=== PATIENT | male | born 1975 | race Caucasian/White ===

== ENCOUNTER 2016-02-23 12:57 | Outpatient (RCR) | payer OTHER ==
[~2016-02-23 12:57] MED LIST: ALPR0.25 PO; AMIT25TA9 PO; AMT10T PO; ATEN25TA PO; BUTA-234 PO; BUTT75CA PO; CPR500T PO; CYCL10TA9 PO; IBP800T PO; KETO-22 PO; KETO10TA77 PO; LEVSIN PO; LISI10TA PO; MAGN100T3 PO; OMEG-85 PO; OMEP-10 GT; OMEP-10 PO; OMEP20CA6 PO; ONDA-42 PO; ONDAN4ODT PO; TPR100T PO; TRAM50TA2 PO; VITAMINE; ZOLP10TA5 PO
--- OUTSIDE RECORDS SUMMARY | 2016-02-23 13:02 | XMS REPORT | Continuity of Care Document ---
Author Author [facility] Organization [facility] Address Unknown Phone Unavailable Care Team Providers Care Installations Inspector Name Role Phone MANASA FUNG DO PCP Insurance Providers Payer Name Policy Number Subscriber Name Relationship Self Pay Pending Patricia Apprv [id number] Rose Grayson 19 Self / Same As Patient Advance Directives Directive Response Recorded Date/Time Advance Directives No 09/04/15 9:25am Health Care Power of Teletype Mechanic No 09/04/15 9:25am Organ Donor No 09/04/15 9:25am Resuscitation Status Full Code 09/04/15 9:25am Problems Active Problems Medical Problem Onset Date Status Headache Unknown Acute Medications Current Home Medications Medication Dose Units Route Directions Days/Qty Instructions Start Date Omeprazole 20 Mg 20 Mg Oral Daily 10/08/14 Past Home Medications Medication Directions Ordered Status Ciprofloxacin 500 Mg Tablet, 1 Tab Oral Twice A Day 02/28/11 Discontinued Ondansetron Hcl 4 Mg Tab, 4 Mg Oral Every 4HRS 02/28/11 Discontinued Ketorolac Tromethamine 10 Mg Tablet, 10 Mg Oral Q6-8 Hours as needed Discontinued Omeprazole 20 Mg Capsule.dr, 20 Mg Oral As Needed 10/28/11 Discontinued Topiramate 100 Mg Tablet, 150 Mg Oral Twice A Day 01/17/13 Discontinued Cyclobenzaprine Hcl (Flexeril) 10 Mg Tablet, 10 Mg Oral Q8hr Prn 01/17/13 Discontinued Tramadol Hcl 50 Mg Tablet, 50 Mg Oral As Needed 01/17/13 Discontinued Lisinopril 10 Mg Tablet, 10 Mg Oral Daily 01/17/13 Discontinued Amitriptyline Hcl 25 Mg Tab, 25 Mg Oral Bedtime 01/17/13 Discontinued Zolpidem Tartrate 10 Mg Tablet, 10 Mg Oral Bedtime as needed 01/17/13 Discontinued Ibuprofen 800 Mg Tab, 800 Mg Oral Give Every 8 Hrs On Schedule as needed 05/31 Discontinued Butalb/Acetaminophen/Caffeine (Fioricet) 1 Each Tablet, 1 Each Oral Q6hr Prn as needed for Headache 02/20/13 Discontinued Atenolol 25 Mg Tablet, 1 Each Oral Daily 05/13/14 Discontinued [place]-3S/Dha/Epa/Fish Oil/D3 1 Each Capsule, 1 Each Oral 05/31/14 Discontinued Cyclobenzaprine Hcl (Flexeril) 10 Mg Tablet, 1 Each Oral Bedtime 05/31/14 Discontinued Omeprazole 20 Mg Capsule.dr, 20 Mg G Tube Daily 05/31/14 Discontinued Ketorolac Tromethamine 10 Mg Tablet, 10 Mg Oral Every 6 Hours as needed for Pain 05/31/14 Discontinued Ondansetron Hcl 4 Mg Tab, 4 Mg Oral As Needed as needed for 05/31/14 Discontinued Amitriptyline Hcl 10 Mg Tab, 10 Mg Oral Bedtime 05/31/14 Discontinued Magnesium Amino Acid Chelate 100 Mg Tablet, 135 Mg Oral Daily 05/31/14 Discontinued [Vitamine B2] , 05/31/14 Discontinued Butterbur Root Extract 75 Mg Capsule, 75 Mg Oral Daily 05/31/14 Discontinued Alprazolam 0.25 Mg Tablet, 0.25 Mg Oral Twice A Day as needed for Anxiety Discontinued [Levsin Er] , 0.375 Mg Oral Twice A Day as needed for Abdominal Pain Discontinued Social History Social History Problem Response Recorded Date/Time Alcohol Use Occasionally Uses 09/04/2015 9:25am Recreational Drug Use No 09/04/2015 9:25am Recent Foreign Travel No 09/04/2015 9:25am Sexually Transmitted Disease No 09/04/2015 9:25am Smoking Status Never a Smoker 09/04/2015 9:24am Do you dip or chew tobacco? No 10/08/2014 12:38pm Query Response Start Date Stop Date Smoking Status Never a Smoker Hospital Discharge Instructions Patient Instructions Physician Instructions Plan of Care/Instructions/FU: 1 week vasquez Activity as Tolerated: No Discharge Diet: Regular Diet Other Inst to Patient Follow up Appt: Make appointment for 1 week. Instructions: No lifting greater than 10 pounds. No strenuous activity. May shower in 24 hours, no tub bath or soaking. Use incentive spirometer at home as directed. No Smoking Skin/Wound Care: May remove bandages in 24 hours. You need to leave the white strips over incision on they will fall off on their own. Symptoms to Report: Appetite Changes, Extremity Discoloration, Numbness/Tingling, Swelling Increased, Bleeding Excessive, Eyesight Changes, Pain Increased, Urine Color Change, Constipation(Persistent), Fever over 101 degree F, Pain/Pressure in chest, Urinating Difficulty, Cough Up/Vomit Blood, Heart Beat Irreg/Pounding, Pain/Pressure in jaw, Vaginal Bleeding Increase, Cramps in feet or legs, Lightheadedness, Pain/Pressure in shoulder, Diarrhea(Persistent), Memory Changes Suddenly, Questions/Concerns, Weight gain consecutive days, Dizziness/Fainting, Nausea/Vomiting, Shortness of Breath, Weight gain over 2 pounds If questions or concerns contact your physician Or seek help at emergency department. Care Plan Patient Instructions:: 1 week lapoint Plan of Care Discharge Date 09/04/15 12:00pm Instructions/Education Provided ANESTHESIA INSTRUCTIONS POSTOP Prescriptions See Medication Section Functional Status No functional status results. Allergies, Adverse Reactions, Alerts No known allergies. Immunizations Name Given Type Date of Pneumonia Vaccine 05/31/11 Historical Date of Influenza Vaccine 01/28/14 Historical Tetanus Booster (TDap) Less than 5yrs Historical Vital Signs Acute Vital Signs Vital Response Date/Time Temperature (Fahrenheit) 98.0 degrees F (97.6 - 99.5) 09/04/2015 12:00pm Temperature (Calculated Celsius) 36.65722 degrees C (36.4 - 37.5) 09/04/2015 11:40am Temperature Source Temporal 09/04/2015 12:00pm Pulse Rate (adult) 79 bpm (60 - 90) 09/04/2015 12:00pm Respiratory Rate 16 bpm (12 - 24) 09/04/2015 12:00pm O2 Sat by Pulse Oximetry 95 % (88 - 100) 09/04/2015 12:00pm Blood Pressure 112/78 mm Hg 09/04/2015 12:00pm Blood Pressure Mean 111 mm Hg 08/29/2015 1:35pm Pain Pain Intensity 0 09/04/2015 11:40am Height (Feet) 5 feet 09/04/2015 9:25am Height (Inches) 5.00 inches 09/04/2015 9:25am Height (Calculated Centimeters) 165.547357 cm 09/04/2015 9:25am Weight (Pounds) 290 pounds 09/04/2015 9:25am Weight (Ounces) 0.0 oz 09/04/2015 9:25am Weight (Calculated Grams) 208987.789 gm 09/04/2015 9:25am Weight (Calculated Kilograms) 131.128020 kilograms 09/04/2015 9:25am Calculated BMI 48.25 09/04/2015 9:25am Results Laboratory Results Test Name Result Units Flags Reference Collection Date/Time Result Date/ Time Comments White Blood Count 6.3 10^3/uL 4.3-11.0 05/26/2015 1:43pm 05/26/2015 1: 59pm Red Blood Count 5.03 10^6/uL 4.35-5.85 05/26/2015 1:43pm 05/26/2015 1: 59pm Hemoglobin 15.1 G/DL 13.3-17.7 05/26/2015 1:43pm 05/26/2015 1:59pm Hematocrit 45 % 40-54 05/26/2015 1:43pm 05/26/2015 1:59pm Mean Corpuscular Volume 89 FL 80-99 05/26/2015 1:43pm 05/26/2015 1: 59pm Mean Corpuscular Hemoglobin 30 PG 25-34 05/26/2015 1:43pm 05/26/2015 1: 59pm Mean Corpuscular Hemoglobin Concent 34 G/DL 32-36 05/26/2015 1:43pm 11/2015 1:59pm Red Cell Distribution Width 13.4 % 10.0-14.5 05/26/2015 1:43pm 2015 1:59pm Platelet Count 219 10^3/uL 130-400 05/26/2015 1:43pm 05/26/2015 1:59pm Mean Platelet Volume 10.1 FL 7.4-10.4 05/26/2015 1:43pm 05/26/2015 1: 59pm Neutrophils (%) (Auto) 70 % 42-75 05/26/2015 1:43pm 05/26/2015 1:59pm Lymphocytes (%) (Auto) 19 % 12-44 05/26/2015 1:43pm 05/26/2015 1:59pm Monocytes (%) (Auto) 9 % 0-12 05/26/2015 1:43pm 05/26/2015 1:59pm Eosinophils (%) (Auto) 2 % 0-10 05/26/2015 1:43pm 05/26/2015 1:59pm Basophils (%) (Auto) 0 % 0-10 05/26/2015 1:43pm 05/26/2015 1:59pm Neutrophils # (Auto) 4.4 X 10^3 1.8-7.8 05/26/2015 1:43pm 05/26/2015 1: 59pm Lymphocytes # (Auto) 1.2 X 10^3 1.0-4.0 05/26/2015 1:43pm 05/26/2015 1: 59pm Monocytes # (Auto) 0.6 X 10^3 0.0-1.0 05/26/2015 1:43pm 05/26/2015 1: 59pm Eosinophils # (Auto) 0.1 10^3/uL 0.0-0.3 05/26/2015 1:43pm 05/26/2015 1 :59pm Basophils # (Auto) 0.0 10^3/uL 0.0-0.1 05/26/2015 1:43pm 05/26/2015 1: 59pm Sodium Level 141 MMOL/L 135-145 05/26/2015 1:43pm 05/26/2015 2:25pm Potassium Level 4.2 MMOL/L 3.6-5.0 05/26/2015 1:43pm 05/26/2015 2:25pm Chloride Level 108 MMOL/L H 98-107 05/26/2015 1:43pm 05/26/2015 2:25pm Carbon Dioxide Level 24 MMOL/L 21-32 05/26/2015 1:43pm 05/26/2015 2: 25pm Anion Gap 9 MMOL/L 5-14 05/26/2015 1:43pm 05/26/2015 2:25pm Blood Urea Nitrogen 8 MG/DL 7-18 05/26/2015 1:43pm 05/26/2015 2:25pm Creatinine 0.74 MG/DL 0.60-1.30 05/26/2015 1:43pm 05/26/2015 2:25pm BUN/Creatinine Ratio 11 05/26/2015 1:43pm 05/26/2015 2:25pm Estimat Glomerular Filtration Rate > 60 05/26/2015 1:43pm 2015 2:25pm GFR INTERPRETIVE DATA UNITS FOR ESTIMATED GFR (eGFR): mL/min/1.73 M2 REFERENCE RANGE FOR ESTIMATED GFR (eGFR) eGFR NORMAL eGFR >60 MODERATELY DECREASED eGFR 30-59 SEVERLY DECREASED eGFR 15-29 KIDNEY FAILURE <15 (OR DIALYSIS) Glucose Level 109 MG/DL H 70-105 05/26/2015 1:43pm 05/26/2015 2:25pm Calcium Level 9.3 MG/DL 8.5-10.1 05/26/2015 1:43pm 05/26/2015 2:25pm Total Bilirubin 0.3 MG/DL 0.1-1.0 05/26/2015 1:43pm 05/26/2015 2:25pm Alkaline Phosphatase 53 U/L 40-136 05/26/2015 1:43pm 05/26/2015 2:25pm Aspartate Amino Transf (AST/SGOT) 26 U/L 5-34 05/26/2015 1:43pm 2015 2:25pm Alanine Aminotransferase (ALT/SGPT) 51 U/L 0-55 05/26/2015 1:43pm 05/26 2:25pm Lactate Dehydrogenase 190 U/L 125-220 05/26/2015 1:43pm 05/26/2015 2: 25pm Total Protein 7.0 G/DL 6.4-8.2 05/26/2015 1:43pm 05/26/2015 2:25pm Albumin 4.2 G/DL 3.2-4.5 05/26/2015 1:43pm 05/26/2015 2:25pm Pending Laboratory Results Test Name Collection Date/Time Procedures Procedure Status Date Provider(s) DIAGNOSTIC SIGMOIDOSCOPY Completed 08/29/15 VASQUEZ,YOLANDA D DO Removal of right central venous catheter Completed 09/04/15 YOLANDA VASQUEZ DO Encounters Encounter Location Arrival/Admit Date Discharge/Depart Date Attending Provider Departed [facility] 09/04/15 8:52am 12:00pm YOLANDA VASQUEZ DO Departed Clinic [facility] 09/03/15 5:38am 09/03/15 1: 17pm YLOANDA VASQUEZ DO Departed [facility] 08/29/15 1:24pm 4:15pm YOLANDA VASQUEZ DO Registered Clinic [facility] 08/20/15 12:19pm LAINE DIAZ Registered Clinic [facility] 08/18/15 1:44pm LAINE DIAZ Discharged Recurring [facility] 05/26/15 2:11pm 11:59pm VAUGHN FRANKEL
[2016-02-23 13:05] LABS: BASOPHILS % (AUTO) 0 % (0-10); EOSINOPHILS # (AUTO) 0.1 10^3/uL (0.0-0.3); EOSINOPHILS % (AUTO) 2 % (0-10); LYMPHOCYTES # (AUTO) 1.4 X 10^3 (1.0-4.0); LYMPHOCYTES % (AUTO) 20 % (12-44); MEAN CORPUSCULAR HEMOGLOBIN 29 PG (25-34); MEAN CORPUSCULAR HGB CONC 34 G/DL (32-36); MEAN CORPUSCULAR VOLUME 87 FL (80-99); MONOCYTES # (AUTO) 0.6 X 10^3 (0.0-1.0); MONOCYTES % (AUTO) 9 % (0-12); NEUTROPHILS # (AUTO) 4.6 X 10^3 (1.8-7.8); NEUTROPHILS % (AUTO) 69 % (42-75); PLATELET COUNT 241 10^3/uL (130-400); RED BLOOD COUNT 5.23 10^6/uL (4.35-5.85); RED CELL DISTRIBUTION WIDTH 14.3 % (10.0-14.5); WHITE BLOOD COUNT 6.7 10^3/uL (4.3-11.0)
[2016-02-23 13:36] LABS: ALANINE AMINOTRANSFERASE 55 U/L (0-55); ALBUMIN 4.2 G/DL (3.2-4.5); ASPARTATE AMINO TRANSFERASE 37 U/L (5-34); BILIRUBIN,TOTAL 0.5 MG/DL (0.1-1.0); BLOOD UREA NITROGEN 11 MG/DL (7-18); BUN/CREATININE RATIO 15; CALCIUM 9.4 MG/DL (8.5-10.1); CARBON DIOXIDE 24 MMOL/L (21-32); CREATININE SERUM 0.75 MG/DL (0.60-1.30); GFR ESTIMATED > 60; GLUCOSE 103 MG/DL (70-105); TOTAL PROTEIN 6.9 G/DL (6.4-8.2)
[2016-02-23 14:41] LABS: ANION GAP 9 MMOL/L (5-14); CHLORIDE 108 MMOL/L (98-107); POTASSIUM 4.2 MMOL/L (3.6-5.0); SODIUM 141 MMOL/L (135-145)
== END 2016-05-23 | disposition home or self-care (01) ==
LOC: ONC 12:57
PROVIDERS: ATTEND Internal Medicine Hematology & Oncology
DX: C21.0 Malignant neoplasm of anus, unspecified (principal); R74.0 Nonspecific elevation of levels of transaminase and lactic acid dehydrogenase [LDH]; Z92.21 Personal history of antineoplastic chemotherapy; Z92.3 Personal history of irradiation
CPT/HCPCS: 36415; 80053; 85025; 99213

== ENCOUNTER → 2016-08-17 | Outpatient (CLI) | payer OTHER ==
[~2016-08-17] MED LIST changes: +CATHETER FLUSH 10 ML SYR IV PRN; +IOHEXOL 350 MG/ML 100 ML (OMNIPAQUE 350) VIAL IV ONE
--- NOTE | 2016-08-17 14:36 | Diagnostic Imaging Report ---
PROCEDURE: CT chest, abdomen, and pelvis with contrast. TECHNIQUE: Multiple contiguous axial images were obtained through the chest, abdomen, and pelvis after the administration of intravenous contrast. INDICATION: Followup of anal cancer. Comparison with CT of the chest from 08/20/[address] scan of the abdomen and pelvis from 07/25/2015. CT chest with contrast: FINDINGS: The lungs are well aerated. There are no parenchymal masses present. No infiltrates. No pleural effusions or pericardial effusions. There is opacification of the aorta and pulmonary arteries which appear normal. Bone windows show no blastic or lytic lesions. IMPRESSION: Stable CT scan of the chest with no findings to indicate metastatic disease. CT abdomen and pelvis: FINDINGS: Hepatic steatosis is again noted. No liver lesions have developed. Gallbladder and bile duct appear normal. The pancreas and spleen remain normal. The adrenal glands are not enlarged. The kidneys show normal enhancement following IV contrast. There are no renal calculi or masses. No retroperitoneal adenopathy of pathologic size. The stomach and small bowel are not distended. The colon shows normal stool and gas pattern. The appendix is visualized and normal. There is diverticulosis of the sigmoid colon without evidence of diverticulitis. The mesorectal fascial planes and perirectal fat appear normal with no adenopathy. There is no free air or free fluid. Bone windows show no blastic or lytic lesions. IMPRESSION: 1. Stable CT scan of the abdomen and pelvis. Hepatic steatosis again noted. 2. No changes have occurred to indicate metastatic disease or recurrent neoplasm. Dictated by: Dictated on workstation # [id number]
== END ==
LOC: RAD 13:04
PROVIDERS: ATTEND Nurse Practitioner Adult Health
DX: C21.1 Malignant neoplasm of anal canal (principal); K76.0 Fatty (change of) liver, not elsewhere classified
CPT/HCPCS: 71260; 74177

== ENCOUNTER → 2016-08-23 | Outpatient (CLI) | payer OTHER ==
[~2016-08-23] MED LIST changes: -CATHETER FLUSH 10 ML SYR IV PRN; -IOHEXOL 350 MG/ML 100 ML (OMNIPAQUE 350) VIAL IV ONE
[2016-08-24 15:52] LABS: PROLACTIN 8.5 ng/mL (2.1-17.7)
== END ==
LOC: LAB 13:51
PROVIDERS: ATTEND Family Medicine
DX: E29.1 Testicular hypofunction (principal)
CPT/HCPCS: 84146; 84153; 84403

== ENCOUNTER → 2016-08-23 | Outpatient (RCR) | payer OTHER ==
--- OUTSIDE RECORDS SUMMARY | 2016-05-25 13:01 | XMS REPORT | Continuity of Care Document ---
Author Author [facility] Organization [facility] Address Unknown Phone Unavailable Care Team Providers Care Media Operator Name Role Phone MANASA FUNG DO PCP Insurance Providers Payer Name Policy Number Subscriber Name Relationship UMR [id number] Rose Grayson 19 Self / Same As Patient Self Pay Pending Patricia Apprv Advance Directives Directive Response Recorded Date/Time Advance Directives No 09/04/15 9:25am Health Care Power of Metalworking Instructor No 09/04/15 9:25am Organ Donor No 09/04/15 9:25am Problems Active Problems Medical Problem [...] Tablet, 1 Each Oral Daily 05/13/14 Discontinued [place]-3S/Dha/Epa/Fish Oil/D3 1 Each Capsule, 1 Each Oral [...] No 09/04/2015 9:25am Recent Foreign Travel No 02/23/2016 12:57pm Sexually Transmitted Disease No 09/04/2015 9:25am Do you dip or chew tobacco? No 10/08/2014 12:38pm Sexually Transmitted Disease No 09/04/2015 9:25am Hx Sexually Transmitted Disorders No 06/13/2014 12:15pm Hospital Discharge Instructions No hospital discharge instructions. Plan of Care Prescriptions See Medication Section Functional Status No functional status results. Allergies, Adverse Reactions, Alerts No known allergies. Immunizations No immunization records. Vital Signs No known vital signs results. Results Laboratory Results Test Name Result Units Flags Reference Collection Date/Time Result Date/ Time Comments White Blood Count 6.7 10^3/uL 4.3-11.0 02/23/2016 1:01pm 02/23/2016 1: 07pm Red Blood Count 5.23 10^6/uL 4.35-5.85 02/23/2016 1:01pm 02/23/2016 1: 07pm Hemoglobin 15.3 G/DL 13.3-17.7 02/23/2016 1:01pm 02/23/2016 1:07pm Hematocrit 46 % 40-54 02/23/2016 1:01pm 02/23/2016 1:07pm Mean Corpuscular Volume 87 FL 80-99 02/23/2016 1:01pm 02/23/2016 1: 07pm Mean Corpuscular Hemoglobin 29 PG 25-34 02/23/2016 1:01pm 02/23/2016 1: 07pm Mean Corpuscular Hemoglobin Concent 34 G/DL 32-36 02/23/2016 1:01pm 10/2015 1:07pm Red Cell Distribution Width 14.3 % 10.0-14.5 02/23/2016 1:01pm 2015 1:07pm Platelet Count 241 10^3/uL 130-400 02/23/2016 1:01pm 02/23/2016 1:07pm Mean Platelet Volume 10.0 FL 7.4-10.4 02/23/2016 1:01pm 02/23/2016 1: 07pm Neutrophils (%) (Auto) 69 % 42-75 02/23/2016 1:01pm 02/23/2016 1:07pm Lymphocytes (%) (Auto) 20 % 12-44 02/23/2016 1:01pm 02/23/2016 1:07pm Monocytes (%) (Auto) 9 % 0-12 02/23/2016 1:01pm 02/23/2016 1:07pm Eosinophils (%) (Auto) 2 % 0-10 02/23/2016 1:01pm 02/23/2016 1:07pm Basophils (%) (Auto) 0 % 0-10 02/23/2016 1:01pm 02/23/2016 1:07pm Neutrophils # (Auto) 4.6 X 10^3 1.8-7.8 02/23/2016 1:01pm 02/23/2016 1: 07pm Lymphocytes # (Auto) 1.4 X 10^3 1.0-4.0 02/23/2016 1:01pm 02/23/2016 1: 07pm Monocytes # (Auto) 0.6 X 10^3 0.0-1.0 02/23/2016 1:01pm 02/23/2016 1: 07pm Eosinophils # (Auto) 0.1 10^3/uL 0.0-0.3 02/23/2016 1:01pm 02/23/2016 1 :07pm Basophils # (Auto) 0.0 10^3/uL 0.0-0.1 02/23/2016 1:01pm 02/23/2016 1: 07pm Sodium Level 141 MMOL/L 135-145 02/23/2016 1:01pm 02/23/2016 2:42pm Potassium Level 4.2 MMOL/L 3.6-5.0 02/23/2016 1:01pm 02/23/2016 2:42pm Chloride Level 108 MMOL/L H 98-107 02/23/2016 1:01pm 02/23/2016 2:42pm Carbon Dioxide Level 24 MMOL/L 21-32 02/23/2016 1:01pm 02/23/2016 1: 43pm Anion Gap 9 MMOL/L 5-14 02/23/2016 1:01pm 02/23/2016 2:42pm Blood Urea Nitrogen 11 MG/DL 7-18 02/23/2016 1:01pm 02/23/2016 1:43pm Creatinine 0.75 MG/DL 0.60-1.30 02/23/2016 1:01pm 02/23/2016 1:43pm BUN/Creatinine Ratio 15 02/23/2016 1:01pm 02/23/2016 1:43pm Estimat Glomerular Filtration Rate > 60 02/23/2016 1:01pm 2015 1:43pm GFR INTERPRETIVE DATA UNITS FOR ESTIMATED GFR (eGFR): mL/min/1.73 M2 REFERENCE RANGE FOR ESTIMATED GFR (eGFR) eGFR NORMAL eGFR >60 MODERATELY DECREASED eGFR 30-59 SEVERLY DECREASED eGFR 15-29 KIDNEY FAILURE <15 (OR DIALYSIS) Glucose Level 103 MG/DL 70-105 02/23/2016 1:01pm 02/23/2016 1:43pm Calcium Level 9.4 MG/DL 8.5-10.1 02/23/2016 1:01pm 02/23/2016 1:43pm Total Bilirubin 0.5 MG/DL 0.1-1.0 02/23/2016 1:01pm 02/23/2016 1:43pm Alkaline Phosphatase 53 U/L 40-136 02/23/2016 1:01pm 02/23/2016 1:43pm Aspartate Amino Transf (AST/SGOT) 37 U/L H 5-34 02/23/2016 1:01pm 2015 1:43pm Alanine Aminotransferase (ALT/SGPT) 55 U/L 0-55 02/23/2016 1:01pm 02/22 1:43pm Total Protein 6.9 G/DL 6.4-8.2 02/23/2016 1:01pm 02/23/2016 1:43pm Albumin 4.2 G/DL 3.2-4.5 02/23/2016 1:01pm 02/23/2016 1:43pm Procedures No known history of procedures. Encounters Encounter Location Arrival/Admit Date Discharge/Depart Date Attending Provider Discharged Recurring [facility] 02/23/16 12:57pm 11:59pm VAUGHN FRANKEL
[2016-05-25 13:21] LABS: BASOPHILS % (AUTO) 1 % (0-10); EOSINOPHILS # (AUTO) 0.1 10^3/uL (0.0-0.3); EOSINOPHILS % (AUTO) 2 % (0-10); LYMPHOCYTES # (AUTO) 1.3 X 10^3 (1.0-4.0); LYMPHOCYTES % (AUTO) 20 % (12-44); MEAN CORPUSCULAR HEMOGLOBIN 29 PG (25-34); MEAN CORPUSCULAR HGB CONC 34 G/DL (32-36); MEAN CORPUSCULAR VOLUME 87 FL (80-99); MEAN PLATELET VOLUME 10.1 FL (7.4-10.4); MONOCYTES # (AUTO) 0.5 X 10^3 (0.0-1.0); MONOCYTES % (AUTO) 8 % (0-12); NEUTROPHILS # (AUTO) 4.5 X 10^3 (1.8-7.8); NEUTROPHILS % (AUTO) 70 % (42-75); PLATELET COUNT 216 10^3/uL (130-400); RED BLOOD COUNT 5.17 10^6/uL (4.35-5.85); RED CELL DISTRIBUTION WIDTH 14.4 % (10.0-14.5); WHITE BLOOD COUNT 6.4 10^3/uL (4.3-11.0)
[2016-05-25 13:49] LABS: ALANINE AMINOTRANSFERASE 37 U/L (0-55); ANION GAP 7 MMOL/L (5-14); ASPARTATE AMINO TRANSFERASE 20 U/L (5-34); BILIRUBIN,TOTAL 0.5 MG/DL (0.1-1.0); BLOOD UREA NITROGEN 11 MG/DL (7-18); BUN/CREATININE RATIO 14; CALCIUM 8.9 MG/DL (8.5-10.1); CARBON DIOXIDE 25 MMOL/L (21-32); CHLORIDE 108 MMOL/L (98-107); CREATININE SERUM 0.78 MG/DL (0.60-1.30); GFR ESTIMATED > 60; GLUCOSE 101 MG/DL (70-105); POTASSIUM 3.8 MMOL/L (3.6-5.0); SODIUM 140 MMOL/L (135-145); TOTAL PROTEIN 6.5 G/DL (6.4-8.2)
[2016-08-23 14:04] LABS: BASOPHILS % (AUTO) 0 % (0-10); EOSINOPHILS # (AUTO) 0.2 10^3/uL (0.0-0.3); EOSINOPHILS % (AUTO) 2 % (0-10); LYMPHOCYTES # (AUTO) 1.3 X 10^3 (1.0-4.0); LYMPHOCYTES % (AUTO) 12 % (12-44); MEAN CORPUSCULAR HEMOGLOBIN 28 PG (25-34); MEAN CORPUSCULAR HGB CONC 33 G/DL (32-36); MEAN CORPUSCULAR VOLUME 86 FL (80-99); MEAN PLATELET VOLUME 10.6 FL (7.4-10.4); MONOCYTES # (AUTO) 0.7 X 10^3 (0.0-1.0); MONOCYTES % (AUTO) 6 % (0-12); NEUTROPHILS # (AUTO) 8.5 X 10^3 (1.8-7.8); NEUTROPHILS % (AUTO) 80 % (42-75); PLATELET COUNT 222 10^3/uL (130-400); RED BLOOD COUNT 6.17 10^6/uL (4.35-5.85); RED CELL DISTRIBUTION WIDTH 14.5 % (10.0-14.5); WHITE BLOOD COUNT 10.6 10^3/uL (4.3-11.0)
[2016-08-23 14:32] LABS: ALANINE AMINOTRANSFERASE 34 U/L (0-55); ALBUMIN 4.3 G/DL (3.2-4.5); ANION GAP 9 MMOL/L (5-14); ASPARTATE AMINO TRANSFERASE 21 U/L (5-34); BILIRUBIN,TOTAL 0.5 MG/DL (0.1-1.0); BLOOD UREA NITROGEN 8 MG/DL (7-18); BUN/CREATININE RATIO 10; CALCIUM 9.3 MG/DL (8.5-10.1); CARBON DIOXIDE 25 MMOL/L (21-32); CHLORIDE 107 MMOL/L (98-107); CREATININE SERUM 0.84 MG/DL (0.60-1.30); GFR ESTIMATED > 60; GLUCOSE 100 MG/DL (70-105); SODIUM 141 MMOL/L (135-145); TOTAL PROTEIN 7.1 G/DL (6.4-8.2)
== END | disposition home or self-care (01) ==
LOC: ONC 05-25 12:58
PROVIDERS: ATTEND Internal Medicine Hematology & Oncology
DX: C21.0 Malignant neoplasm of anus, unspecified (principal); R74.0 Nonspecific elevation of levels of transaminase and lactic acid dehydrogenase [LDH]; Z92.21 Personal history of antineoplastic chemotherapy; Z92.3 Personal history of irradiation
CPT/HCPCS: 36415; 80053; 84146; 84153; 84403; 85025; 99213

== ENCOUNTER 2016-11-25 12:54 | Outpatient (RCR) | payer OTHER ==
[2016-11-25 13:07] LABS: BASOPHILS % (AUTO) 0 % (0-10); EOSINOPHILS # (AUTO) 0.1 10^3/uL (0.0-0.3); EOSINOPHILS % (AUTO) 2 % (0-10); LYMPHOCYTES # (AUTO) 1.4 X 10^3 (1.0-4.0); LYMPHOCYTES % (AUTO) 17 % (12-44); MEAN CORPUSCULAR HEMOGLOBIN 27 PG (25-34); MEAN CORPUSCULAR HGB CONC 33 G/DL (32-36); MEAN CORPUSCULAR VOLUME 83 FL (80-99); MEAN PLATELET VOLUME 10.4 FL (7.4-10.4); MONOCYTES # (AUTO) 0.6 X 10^3 (0.0-1.0); MONOCYTES % (AUTO) 7 % (0-12); NEUTROPHILS # (AUTO) 6.2 X 10^3 (1.8-7.8); NEUTROPHILS % (AUTO) 74 % (42-75); PLATELET COUNT 226 10^3/uL (130-400); RED BLOOD COUNT 6.13 10^6/uL (4.35-5.85); RED CELL DISTRIBUTION WIDTH 16.3 % (10.0-14.5); WHITE BLOOD COUNT 8.4 10^3/uL (4.3-11.0)
[2016-11-25 13:36] LABS: ALANINE AMINOTRANSFERASE 37 U/L (0-55); ALBUMIN 4.2 GM/DL (3.2-4.5); ANION GAP 11 MMOL/L (5-14); ASPARTATE AMINO TRANSFERASE 22 U/L (5-34); BILIRUBIN,TOTAL 0.6 MG/DL (0.1-1.0); BLOOD UREA NITROGEN 9 MG/DL (7-18); BUN/CREATININE RATIO 11; CALCIUM 9.7 MG/DL (8.5-10.1); CARBON DIOXIDE 24 MMOL/L (21-32); CHLORIDE 106 MMOL/L (98-107); CREATININE SERUM 0.79 MG/DL (0.60-1.30); GFR ESTIMATED > 60; GLUCOSE 114 MG/DL (70-105); POTASSIUM 4.2 MMOL/L (3.6-5.0); SODIUM 141 MMOL/L (135-145); TOTAL PROTEIN 7.1 GM/DL (6.4-8.2)
== END 2017-01-15 | disposition home or self-care (01) ==
LOC: ONC 12:54
PROVIDERS: ATTEND Internal Medicine Hematology & Oncology
DX: C21.0 Malignant neoplasm of anus, unspecified (principal); R74.0 Nonspecific elevation of levels of transaminase and lactic acid dehydrogenase [LDH]; Z92.21 Personal history of antineoplastic chemotherapy; Z92.3 Personal history of irradiation
CPT/HCPCS: 36415; 80053; 85025; 99213

== ENCOUNTER 2017-02-08 05:36 | Outpatient (CLI) | payer SELFPAY ==
[~2017-02-08] VITALS: Ht 165.1 cm; Wt 127.9 kg
== END 2017-02-08 11:40 ==
LOC: PREOP 05:36
PROVIDERS: ATTEND Surgery
DX: Z01.818 Encounter for other preprocedural examination (principal); K62.5 Hemorrhage of anus and rectum; Z85.048 Personal history of other malignant neoplasm of rectum, rectosigmoid junction, and anus

== ENCOUNTER 2017-02-15 06:50 | Day surgery (SDC) | payer OTHER ==
[~2017-02-15] VITALS: Ht 165.1 cm; Wt 127.9 kg
[2017-02-15] MEDS ORDERED: LACTATED RINGERS 1,000 ML IV STA (07:02)
--- OUTSIDE RECORDS SUMMARY | 2017-02-15 07:02 | XMS REPORT ---
Author Author LALO GOSS [facility] e[employer] Address Unknown Phone Unavailable Care Team Providers Care Band And Cuff Cutter Name Role Phone LALO GOSS CP Unavailable Allergies, Adverse Reactions, Alerts Substance Reaction Event Type N.K.D.A. Info Not Available Non Drug Allergy Problems Problem Type Condition Code Onset Dates Condition Status Assessment Physical exam Z00.00 Active Assessment Screening for tuberculosis Z11.1 Active Medications Medication Code System Code Instructions Start Date End Date Status Dosage Prilosec OTC [facility] [address] 20 MG Orally Once a day 2 tablets Procedures Procedure Coding System Code Date Office Visit, Est Pt., Level 4 CPT-4 24610 Dec 15, 2015 TB INTRADERMAL TEST CPT-4 49972 Dec 15, 2015 Vital Signs Date/Time: Dec 15, 2015 Cardiac Monitoring Heart Rate 90 bpm Weight 287 lbs Height 65 in BMI 47.75 Index Blood Pressure Diastolic 80 mmHg Blood Pressure Systolic 128 mmHg Results No Known Results Summary Purpose eClinicalWorks Submission
[2017-02-15] MEDS ORDERED: MIDAZOLAM 2 MG/2 ML (VERSED) VIAL ONE (07:03)
[2017-02-15] MEDS ORDERED: PROPOFOL INJECTION 50 ML IV ONE (07:03)
--- OUTSIDE RECORDS SUMMARY | 2017-02-15 07:04 | XMS REPORT | Continuity of Care Document ---
Author Author [facility] Organization [facility] Address Unknown Phone Unavailable Allergies Active Description Code Type Severity Reaction Onset Reported/Identified Relationship to Patient Clinical Status Yes No Known Drug Allergies [id number] Drug Allergy Unknown N/ A 10/11/2008 Medications Problems Date Dx Coded Attending Type Code Diagnosis Diagnosed By 02/28/2011 Ot 575.9 DIS OF GALLBLADDER NOS 02/28/2011 Ot 593.9 RENAL URETERAL DIS NOS 02/28/2011 Ot 789.09 ABDOMINAL PAIN, OTHER SPECIFIED SITE 11/02/2011 Ot 553.1 UMBILICAL HERNIA 08/05/2012 SEMAJ SHEPHERD, GISEL Gomez Ot 784.0 HEADACHE 09/15/2012 LAYLA SHEPHERD, LI Gomez Ot 327.23 OBSTRUCTIVE SLEEP APNEA (ADULT) (PEDIATR 09/15/2012 LAYLA SHEPHERD, LI Gomez Ot 780.79 OTH MALAISE FATIGUE 09/15/2012 LI RICH MD Ot 784.0 HEADACHE 10/04/2012 LASHELL SHEPHERD, CURRY Sánchez Ot 327.23 OBSTRUCTIVE SLEEP APNEA (ADULT) (PEDIATR 01/17/2013 VERONICA SHEPHERD, DAVID Medrano Ot 346.90 MIGRAINE UNSPECIFIED W/O INTRACT MGRN W/ 01/17/2013 VERONICA SHEPHERD, DAVID Medrano Ot 784.0 HEADACHE 02/20/2013 KAYDEN NUNES APRN Ot 784.0 HEADACHE 05/13/2014 Ot 722.93 05/13/2014 Ot 722.52 05/13/2014 Ot 553.1 05/13/2014 Ot V72.63 05/13/2014 Ot V74.8 05/13/2014 KAYDEN NUNES APRN Ot 785.6 ENLARGEMENT LYMPH NODES 05/13/2014 KAYDEN NUNES APRN Ot 789.09 ABDOMINAL PAIN, OTHER SPECIFIED SITE 05/17/2014 Ot 722.93 05/17/2014 Ot 722.52 05/17/2014 Ot 553.1 05/17/2014 Ot V72.63 05/17/2014 Ot V74.8 05/31/2014 YOLANDA VASQUEZ DO Ot 154.8 MAL RAGHAVENDRA RECTUM/ANUS NEC 05/31/2014 YOLANDA VASQUEZ DO Ot 211.3 BENIGN NEOPLASM LG BOWEL 05/31/2014 YOLANDA VASQUEZ DO Ot 558.9 NONINF GASTROENTERIT NEC 05/31/2014 YOLANDA VASQUEZ DO Ot 787.99 06/11/2014 Ot 722.93 06/11/2014 Ot 722.52 06/11/2014 Ot 553.1 06/11/2014 Ot V72.63 06/11/2014 Ot V74.8 06/11/2014 MANASA FUNG DO Ot 240.9 06/11/2014 YOLANDA VASQUEZ DO Ot V72.84 06/12/2014 Ot 154.8 06/13/2014 Ot 154.3 MALIGNANT RAGHAVENDRA ANUS NOS 06/14/2014 Ot 154.8 06/14/2014 Ot 722.93 06/14/2014 Ot 722.52 06/14/2014 Ot 553.1 06/14/2014 Ot V72.63 06/14/2014 Ot V74.8 06/14/2014 MANASA FUNG DO Ot 240.9 06/14/2014 YOLANDA VASQUEZ DO Ot V72.84 06/14/2014 Ot V72.84 07/12/2014 MARLYS, BOBAN N Ot 154.3 07/12/2014 MARLYS, BOBAN N Ot 346.90 07/12/2014 MARLYS, BOBAN N Ot 401.9 07/12/2014 MARLYS, BOBAN N Ot V58.69 07/15/2014 MARLYS, BOBAN N Ot 154.3 07/15/2014 MARLYS, BOBAN N Ot 346.90 07/15/2014 MARLYS, BOBAN N Ot 401.9 07/15/2014 MARLYS, BOBAN N Ot V58.69 07/15/2014 MARLYS, BOBAN N Ot 154.3 07/15/2014 MARLYS, BOBAN N Ot 346.90 07/15/2014 MARLYS, BOBAN N Ot 401.9 07/15/2014 MARLYS, BOBAN N Ot V58.69 07/15/2014 MARLYS, BOBAN N Ot 154.3 07/15/2014 MARLYS, BOBAN N Ot 346.90 07/15/2014 MARLYS, BOBAN N Ot 401.9 07/15/2014 MARLYS, BOBAN N Ot V58.69 07/16/2014 MARLYS, BOBAN N Ot 154.3 07/16/2014 MARLYS, BOBAN N Ot 346.90 07/16/2014 MARLYS, BOBAN N Ot 401.9 07/16/2014 MARLYS, BOBAN N Ot V58.69 07/16/2014 MARLYS, BOBAN N Ot 154.3 07/16/2014 MARLYS, BOBAN N Ot 346.90 07/16/2014 MARLYS, BOBAN N Ot 401.9 07/16/2014 MARLYS, BOBAN N Ot V58.69 07/17/2014 MARLYS, BOBAN N Ot 154.3 07/17/2014 MARLYS, BOBAN N Ot 346.90 07/17/2014 MARLYS, BOBAN N Ot 401.9 07/17/2014 MARLYS, BOBAN N Ot V58.69 07/17/2014 MARLYS, BOBAN N Ot 154.3 07/17/2014 MARLYS, BOBAN N Ot 346.90 07/17/2014 MARLYS, BOBAN N Ot 401.9 07/17/2014 MARLYS, BOBAN N Ot V58.69 07/25/2014 MARLYS, BOBAN N Ot 154.3 07/25/2014 MARLYS, BOBAN N Ot 346.90 07/25/2014 MARLYS, BOBAN N Ot 401.9 07/25/2014 MARLYS, BOBAN N Ot V58.69 07/25/2014 Ot 722.93 07/25/2014 Ot 722.52 07/25/2014 Ot 553.1 07/25/2014 Ot V72.63 07/25/2014 Ot V74.8 07/25/2014 MANASA FUNG DO Ot 240.9 07/25/2014 YOLANDA VASQUEZ DO Ot V72.84 07/25/2014 MARLYS, BOBAN N Ot 154.3 07/25/2014 MARLYS, BOBAN N Ot 346.90 07/25/2014 MARLYS, BOBAN N Ot 401.9 07/25/2014 MARLYS, BOBAN N Ot V58.69 07/25/2014 Ot V72.84 07/25/2014 Ot 154.3 07/25/2014 Ot 401.9 07/25/2014 Ot V58.69 07/26/2014 Ot 154.8 09/12/2014 VAUGHN FRANKEL Yousif Ot 154.3 MALIGNANT RAGHAVENDRA ANUS NOS 09/12/2014 VAUGHN FRANKEL Yousif Ot 346.90 MIGRAINE UNSPECIFIED W/O INTRACT MGRN W/ 09/12/2014 VAUGHN FRANKEL Yousif Ot 401.9 HYPERTENSION NOS 09/12/2014 VAUGHN FRANKEL Yousif Ot V58.0 ENCOUNTER FOR RADIOTHERAPY 09/12/2014 VAUGHN FRANKEL Yousif Ot V58.69 OTH MED,LT,CURRENT USE 09/12/2014 LAINE DIAZ NETWORK STRATEGIST Ot 154.3 09/12/2014 LAINE DIAZ NETWORK STRATEGIST Ot 571.8 09/30/2014 LAINE DIAZ NETWORK STRATEGIST Ot 154.3 09/30/2014 LAINE DIAZ NETWORK STRATEGIST Ot 401.9 09/30/2014 LAINE DIAZ NETWORK STRATEGIST Ot V58.69 10/08/2014 YOLANDA VASQUEZ DO Ot 154.2 MALIG NEOPL ANAL CANAL 10/08/2014 YOLANDA VASQUEZ DO Ot V15.3 HX OF IRRADIATION 10/08/2014 YOLANDA VASQUEZ DO Ot V87.41 PERSONAL HISTORY OF ANTINEOPLASTIC CHEMO 10/17/2014 LAINE DIAZ NETWORK STRATEGIST Ot 154.3 10/17/2014 LAINE DIAZ NETWORK STRATEGIST Ot 571.8 10/17/2014 LAINE DIAZ NETWORK STRATEGIST Ot 154.3 10/17/2014 LAINE DIAZ NETWORK STRATEGIST Ot 401.9 10/17/2014 LAINE DIAZ NETWORK STRATEGIST Ot V58.69 10/22/2014 LAINE DIAZ NETWORK STRATEGIST Ot 154.3 10/22/2014 LAINE DIAZ NETWORK STRATEGIST Ot 401.9 10/22/2014 DIAZLAINE Millan NETWORK STRATEGIST Ot V58.69 10/22/2014 LAINE DIAZ NETWORK STRATEGIST Ot 154.3 10/22/2014 LAINE DIAZ NETWORK STRATEGIST Ot 571.8 10/23/2014 VAUGHN FRANKEL Ot 154.3 10/23/2014 MARLYS, BOBAN N Ot 346.90 10/23/2014 MARLYS, BOBAN N Ot 401.9 10/23/2014 MARLYSCOLE DRAPERAN N Ot V58.69 11/20/2014 MARLYS, BOBAN N Ot 154.3 11/20/2014 MARLYS, BOBAN N Ot 346.90 11/20/2014 MARLYS, BOBAN N Ot 401.9 11/20/2014 MARLYSVAUGHN DRAPER N Ot V58.69 11/21/2014 MARLYSVAUGHN DRAPER N Ot 154.3 11/21/2014 MARLYS, BOBAN N Ot 346.90 11/21/2014 MARLYS, BOBAN N Ot 401.9 11/21/2014 MARLYS, BOBAN N Ot V58.69 11/21/2014 LAIEN DIAZ NETWORK STRATEGIST Ot 154.3 11/21/2014 LAINE DIAZ NETWORK STRATEGIST Ot 401.9 11/21/2014 LAINE DIAZ NETWORK STRATEGIST Ot V58.69 12/13/2014 MARLYS, BOBKODAK N Ot 154.3 12/13/2014 MARLYS, BOBKODAK N Ot 346.90 12/13/2014 MARLYSVAUGHN DRAPER N Ot 401.9 12/13/2014 MARLYSVAUGHN DRAPER N Ot V58.69 12/13/2014 MARLYS BOBKODAK N Ot V58.81 01/07/2015 LAINE DIAZ NETWORK STRATEGIST Ot 790.4 01/07/2015 LAINE DIAZ NETWORK STRATEGIST Ot V10.06 01/07/2015 LAINE DIAZ NETWORK STRATEGIST Ot V67.1 01/07/2015 LAINE DIAZ NETWORK STRATEGIST Ot V67.2 01/15/2015 VAUGHN FRANKEL N Ot 154.3 MALIGNANT RAGHAVENDRA ANUS NOS 01/15/2015 COLE FRANKELAN N Ot 346.90 MIGRAINE UNSPECIFIED W/O INTRACT MGRN W/ 01/15/2015 MARLYS BOBKODAK N Ot 401.9 HYPERTENSION NOS 01/15/2015 VAUGHN FRANKEL N Ot V58.69 OTH MED,LT,CURRENT USE 01/15/2015 COLE FRANKELAN N Ot V58.81 FIT/ADJ VASCULAR CATHETER 02/04/2015 Ot 722.52 02/04/2015 Ot 553.1 02/04/2015 Ot V72.63 02/04/2015 Ot V74.8 02/04/2015 MANASA FUNG DO Ot 240.9 02/04/[facility] 02/04[facility]2015 Ot V72.84 02/04/2015 Ot 154.3 02/04/2015 Ot 401.9 02/04/2015 Ot V58.69 02/04/2015 DIAZLAINE Millan S NETWORK STRATEGIST Ot 154.3 02/04/2015 DIAZLAINE Millan S NETWORK STRATEGIST Ot 401.9 02/04/2015 DIAZLAINE Millan S NETWORK STRATEGIST Ot V58.69 02/04/2015 DIAZLAINE S NETWORK STRATEGIST Ot 154.3 02/04/2015 DIAZLAINE Millan S NETWORK STRATEGIST Ot 571.8 02/04/2015 DIAZLAINE S NETWORK STRATEGIST Ot 154.3 02/04/2015 DIAZLAINE Millan S NETWORK STRATEGIST Ot 401.9 02/04/2015 DIAZLAINE Millan S NETWORK STRATEGIST Ot V58.69 02/04/2015 [facility] V72.84 02/04/2015 DIAZLAINE Millan S NETWORK STRATEGIST Ot 154.3 02/04/2015 DIAZLAINE Millan S NETWORK STRATEGIST Ot 401.9 02/04/2015 LAINE DIAZ S NETWORK STRATEGIST Ot V58.69 02/04/2015 DIAZLAINE Millan S NETWORK STRATEGIST Ot 790.4 02/04/2015 DIAZLAINE Millan S NETWORK STRATEGIST Ot R74.0 02/04/2015 DIAZLAINE Millan S NETWORK STRATEGIST Ot V10.06 02/04/2015 DIAZLAINE Millan S NETWORK STRATEGIST Ot V67.1 02/04/2015 DIAZLAINE S NETWORK STRATEGIST Ot V67.2 02/04/2015 DIAZLAINE S NETWORK STRATEGIST Ot Z85.048 02/04/2015 MARLYSVAUGHN N Ot 154.3 02/04/2015 MARLYSVAUGHN DRAPER N Ot 346.90 02/04/2015 MARLYS BOBAN N Ot 401.9 02/04/2015 MARLYSCOLEAN N Ot V58.69 02/04/2015 MARLYSVAUGHN DRAPER N Ot V58.81 02/04/2015 Ot 722.52 02/04/2015 Ot 553.1 02/04/2015 Ot V72.63 02/04/2015 Ot V74.8 02/04/2015 MANASA FUNG DO Ot 240.9 02/04/2015 [facility] V72.84 02/04/2015 Ot V72.84 02/04/2015 Ot 154.3 02/04/2015 Ot 401.9 02/04/2015 Ot V58.69 02/04/2015 LAINE DIAZ S NETWORK STRATEGIST Ot 154.3 02/04/2015 DIAZLAINE Millan S NETWORK STRATEGIST Ot 401.9 02/04/2015 DIAZLAINE Millan S NETWORK STRATEGIST Ot V58.69 02/04/2015 DIAZLAINE Millan S NETWORK STRATEGIST Ot 154.3 02/04/2015 LAINE DIAZ S NETWORK STRATEGIST Ot 571.8 02/04/2015 DIAZLAINE Millan S NETWORK STRATEGIST Ot 154.3 02/04/2015 DIAZLAINE Millan S NETWORK STRATEGIST Ot 401.9 02/04/2015 LAINE DIAZ S NETWORK STRATEGIST Ot V58.69 02/04/2015 [facility] V72.84 02/04/2015 LAINE DIAZ S NETWORK STRATEGIST Ot 154.3 02/04/2015 LAINE DIAZ S NETWORK STRATEGIST Ot 401.9 02/04/2015 LAINE DIAZ S NETWORK STRATEGIST Ot V58.69 02/04/2015 LAINE DIAZ S NETWORK STRATEGIST Ot 790.4 02/04/2015 LAINE DIAZ S NETWORK STRATEGIST Ot R74.0 02/04/2015 DIAZLAINE Millan S NETWORK STRATEGIST Ot V10.06 02/04/2015 DIAZLAINE Millan S NETWORK STRATEGIST Ot V67.1 02/04/2015 DIAZLAINE Millan S NETWORK STRATEGIST Ot V67.2 02/04/2015 DIAZLAINE Millan S NETWORK STRATEGIST Ot Z85.048 02/04/2015 VAUGHN FRANKEL N Ot 154.3 02/04/2015 MARLYSVAUGHN DRAPER N Ot 346.90 02/04/2015 MARLYSVAUGHN N Ot 401.9 02/04/2015 MARLYSCOLE DRAPERAN N Ot V58.69 02/04/2015 MARLYSVAUGHN DRAPER N Ot V58.81 02/04/2015 MANASA FUNG DO Ot 240.9 02/11/2015 LAINE DIAZ NETWORK STRATEGIST Ot C21.0 02/14/2015 MANASA FUNG DO S Ot 240.9 02/27/2015 LAINE DIAZ S NETWORK STRATEGIST Ot C21.0 03/17/2015 VAUGHN FRANKEL N Ot 154.3 03/17/2015 VAUGHN FRANKEL N Ot 346.90 03/17/2015 VAUGHN FRANKEL N Ot 401.9 03/17/2015 VAUGHN FRANKEL N Ot V58.69 03/17/2015 VAUGHN FRANKEL N Ot V58.81 03/18/2015 DIAZLAINE Millan S NETWORK STRATEGIST Ot N50.3 03/31/2015 DIAZLAINE Millan S NETWORK STRATEGIST Ot Z08 03/31/2015 DIAZLAINE S NETWORK STRATEGIST Ot Z85.048 03/31/2015 DIAZLAINE S NETWORK STRATEGIST Ot Z92.21 03/31/2015 DIAZLAINE S NETWORK STRATEGIST Ot Z92.3 04/07/2015 DIAZLAINE Millan S NETWORK STRATEGIST Ot 790.4 04/07/2015 DIAZLAINE Millan S NETWORK STRATEGIST Ot R74.0 04/07/2015 DIAZLAINE Millan S NETWORK STRATEGIST Ot V10.06 04/07/2015 DIAZLAINE Millan S NETWORK STRATEGIST Ot V67.1 04/07/2015 DIAZLAINE S NETWORK STRATEGIST Ot V67.2 04/07/2015 DIAZLAINE S NETWORK STRATEGIST Ot Z85.048 04/07/2015 DIAZLAINE Millan S NETWORK STRATEGIST Ot N50.3 04/15/2015 VAUGHN FRANKEL N Ot C21.0 04/15/2015 VAUGHN FRANKEL N Ot Z45.2 04/28/2015 VAUGHN FRANKEL N Ot C21.0 MALIGNANT NEOPLASM OF ANUS, UNSPECIFIED 04/28/2015 VAUGHN FRANKEL N Ot Z45.2 ENCOUNTER FOR ADJUSTMENT AND MANAGEMENT 05/19/2015 VAUGHN FRANKEL N Ot C21.0 05/19/2015 VAUGHN FRANKEL N Ot Z45.2 05/26/2015 Ot 722.52 05/26/2015 Ot 553.1 05/26/2015 Ot V72.63 05/26/2015 Ot V74.8 05/26/2015 MANASA FUNG DO Ot 240.9 05/26/2015 MONHEGAN YOLANDA KHAN Ot V72.84 05/26/2015 Ot V72.84 05/26/2015 Ot 154.3 05/26/2015 Ot 401.9 05/26/2015 Ot V58.69 05/26/2015 DIAZLAINE Millan S NETWORK STRATEGIST Ot 154.3 05/26/2015 DIAZLAINE Millan S NETWORK STRATEGIST Ot 401.9 05/26/2015 DIAZLAINE Millan S NETWORK STRATEGIST Ot V58.69 05/26/2015 DIAZLAINE Millan S NETWORK STRATEGIST Ot 154.3 05/26/2015 DIAZLAINE Millan S NETWORK STRATEGIST Ot 571.8 05/26/2015 DIAZLAINE Millan S NETWORK STRATEGIST Ot 154.3 05/26/2015 DIAZLAINE Millan S NETWORK STRATEGIST Ot 401.9 05/26/2015 DIAZLAINE Millan S NETWORK STRATEGIST Ot V58.69 05/26/2015 MONHEGAN YOLANDA KHAN Ot V72.84 05/26/2015 DIAZLAINE Millan S NETWORK STRATEGIST Ot 154.3 05/26/2015 DIAZLAINE Millan S NETWORK STRATEGIST Ot 401.9 05/26/2015 LAINE DIAZ S NETWORK STRATEGIST Ot V58.69 05/26/2015 LAINE DIAZ S NETWORK STRATEGIST Ot 790.4 05/26/2015 DIAZLAINE Millan S NETWORK STRATEGIST Ot R74.0 05/26/2015 DIAZLAINE Millan S NETWORK STRATEGIST Ot V10.06 05/26/2015 LAINE DIAZ S NETWORK STRATEGIST Ot V67.1 05/26/2015 DIAZLAINE Millan S NETWORK STRATEGIST Ot V67.2 05/26/2015 DIAZLAINE Millan S NETWORK STRATEGIST Ot Z85.048 05/26/2015 DIAZLAINE S NETWORK STRATEGIST Ot C21.0 05/26/2015 DIAZLAINE S NETWORK STRATEGIST Ot Z08 05/26/2015 DIAZLAINE S NETWORK STRATEGIST Ot Z85.048 05/26/2015 DIAZLAINE S NETWORK STRATEGIST Ot Z92.21 05/26/2015 DIAZLAINE S NETWORK STRATEGIST Ot Z92.3 05/26/2015 DIAZLAINE S NETWORK STRATEGIST Ot N50.3 05/26/2015 VAUGHN FRANKEL Ot C21.0 05/26/2015 VAUGHN FRANKEL Ot Z45.2 05/27/2015 VAUGHN FRANKEL Ot C21.0 05/27/2015 VAUGHN FRANKEL Ot Z45.2 07/24/2015 Ot 722.52 07/24/2015 Ot 553.1 07/24/2015 Ot V72.63 07/24/2015 Ot V74.8 07/24/2015 [facility] Ot 240.9 07/24/2015 [facility] YOLANDA Sylvester Ot V72.84 07/24/2015 Ot V72.84 07/24/2015 Ot 154.3 07/24/2015 Ot 401.9 07/24/2015 Ot V58.69 07/24/2015 JOE LAINE S NETWORK STRATEGIST Ot 154.3 07/24/2015 JOE LAINE S NETWORK STRATEGIST Ot 401.9 07/24/2015 JOE LAINE S NETWORK STRATEGIST Ot V58.69 07/24/2015 JOE LAINE S NETWORK STRATEGIST Ot 154.3 07/24/2015 JOE LAINE S NETWORK STRATEGIST Ot 571.8 07/24/2015 JOE LAINE S NETWORK STRATEGIST Ot 154.3 07/24/2015 JOE LAINE S NETWORK STRATEGIST Ot 401.9 07/24/2015 JOE LAINE S NETWORK STRATEGIST Ot V58.69 07/24/2015 [facility] V[facility].84 07/24/2015 JOE LAINE S NETWORK STRATEGIST Ot 154.3 07/24/2015 JOE LAINE S NETWORK STRATEGIST Ot 401.9 07/24/2015 DIAZ, LAINE S NETWORK STRATEGIST Ot V58.69 07/24/2015 JOE LAINE S NETWORK STRATEGIST Ot 790.4 07/24/2015 JOE LAINE S NETWORK STRATEGIST Ot R74.0 07/24/2015 JOE LAINE S NETWORK STRATEGIST Ot V10.06 07/24/2015 JOE LAINE S NETWORK STRATEGIST Ot V67.1 07/24/2015 JOE LAINE S NETWORK STRATEGIST Ot V67.2 07/24/2015 JOE LAINE S NETWORK STRATEGIST Ot Z85.048 07/24/2015 DIAZ, HILAH S NETWORK STRATEGIST Ot C21.0 07/24/2015 LAINE DIAZ S NETWORK STRATEGIST Ot Z08 07/24/2015 DIAZLAINE Millan S NETWORK STRATEGIST Ot Z85.048 07/24/2015 DIAZLAINE Millan S NETWORK STRATEGIST Ot Z92.21 07/24/2015 DIAZLAINE Millan S NETWORK STRATEGIST Ot Z92.3 07/24/2015 DIAZLAINE Millan S NETWORK STRATEGIST Ot N50.3 07/24/2015 MARLYS, COLEAN N Ot C21.0 07/24/2015 MARLYS, BOBAN N Ot R74.0 07/24/2015 MARLYS, BOBAN N Ot Z92.21 07/24/2015 MARLYS, BOBAN N Ot Z92.3 07/24/2015 DIAZLAINE Millan S NETWORK STRATEGIST Ot C21.0 07/24/2015 DIAZLAINE S NETWORK STRATEGIST Ot Z92.21 07/24/2015 DIAZLAINE Millan S NETWORK STRATEGIST Ot Z92.3 07/25/2015 MARLYS, BOBAN N Ot C21.0 07/25/2015 MARLYS, BOBAN N Ot R74.0 07/25/2015 MARLYS, BOBAN N Ot Z92.21 07/25/2015 MARLYS, BOBAN N Ot Z92.3 07/25/2015 MARLYS, BOBAN N Ot C21.0 07/25/2015 MARLYS, BOBAN N Ot R74.0 07/25/2015 MARLYS, BOBAN N Ot Z92.21 07/25/2015 MARLYS, BOBAN N Ot Z92.3 07/25/2015 LAINE DIAZ S NETWORK STRATEGIST Ot C21.0 07/25/2015 DIAZLAINE Millan S NETWORK STRATEGIST Ot Z92.21 07/25/2015 DIAZLAINE Millan S NETWORK STRATEGIST Ot Z92.3 07/28/2015 DIAZLAINE Millan S NETWORK STRATEGIST Ot C21.1 07/28/2015 DIAZLAINE Milaln S NETWORK STRATEGIST Ot N50.3 08/20/2015 Ot 722.52 LUMB/LUMBOSAC DISC DEGEN 08/20/2015 Ot 553.1 UMBILICAL HERNIA 08/20/2015 Ot V72.63 PRE-PROCEDURAL LABORATORY EXAMINATION 08/20/2015 Ot V74.8 SCREEN-BACTERIAL DIS NEC 08/20/2015 MANASA FUNG DO Ot 240.9 GOITER NOS 08/20/2015 VASQUEZ DO YOLANDA Sylvester Ot V72.84 EXAM PRE-OPERATIVE NOS 08/20/2015 Ot V72.84 EXAM PRE-OPERATIVE NOS 08/20/2015 Ot 154.3 MALIGNANT RAGHAVENDRA ANUS NOS 08/20/2015 Ot 401.9 HYPERTENSION NOS 08/20/2015 Ot V58.69 OTH MED,LT,CURRENT USE 08/20/2015 JOE LAINE Millan NETWORK STRATEGIST Ot 154.3 MALIGNANT RAGHAVENDRA ANUS NOS 08/20/2015 DIAZLAINE Millan S NETWORK STRATEGIST Ot 401.9 HYPERTENSION NOS 08/20/2015 JOE LAINE Millan NETWORK STRATEGIST Ot V58.69 OTH MED,LT,CURRENT USE 08/20/2015 IVY DIAZREKHA Yana NETWORK STRATEGIST Ot 154.3 MALIGNANT RAGHAVENDRA ANUS NOS 08/20/2015 IVY DIAZREKHA Yana NETWORK STRATEGIST Ot 571.8 CHRONIC LIVER DIS NEC 08/20/2015 LAINE DIAZ S NETWORK STRATEGIST Ot 154.3 MALIGNANT RAGHAVENDRA ANUS NOS 08/20/2015 LAINE DIAZ NETWORK STRATEGIST Ot 401.9 HYPERTENSION NOS 08/20/2015 JOE LAINE Millan NETWORK STRATEGIST Ot V58.69 OTH MED,LT,CURRENT USE 08/20/2015 YOLANDA VASQUEZ DO Ot V72.84 EXAM PRE-OPERATIVE NOS 08/20/2015 LAINE DIAZ NETWORK STRATEGIST Ot 154.3 MALIGNANT RAGHAVENDRA ANUS NOS 08/20/2015 IVY DIAZREKHA S NETWORK STRATEGIST Ot 401.9 HYPERTENSION NOS 08/20/2015 LAINE DIAZ S NETWORK STRATEGIST Ot V58.69 OTH MED,LT,CURRENT USE 08/20/2015 LAINE DIAZ NETWORK STRATEGIST Ot 790.4 ELEV TRANSAMINASE/LDH 08/20/2015 IVY DIAZREKHA S NETWORK STRATEGIST Ot R74.0 NONSPEC ELEV OF LEVELS OF TRANSAMNS LA 08/20/2015 LAINE DIAZ NETWORK STRATEGIST Ot V10.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 08/20/2015 LAINE DIAZ NETWORK STRATEGIST Ot V67.1 RADIOTHERAPY FOLLOW-UP 08/20/2015 LAINE DIAZ NETWORK STRATEGIST Ot V67.2 CHEMOTHERAPY FOLLOW-UP 08/20/2015 LAINE DIAZ NETWORK STRATEGIST Ot 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, RECT 08/20/2015 LAINE DIAZ NETWORK STRATEGIST Ot C21.0 MALIGNANT NEOPLASM OF ANUS, UNSPECIFIED 08/20/2015 LAINE DIAZ NETWORK STRATEGIST Ot Z08 ENCNTR FOR FOLLOW-UP EXAM AFTER TRTMT FO 08/20/2015 LAINE DIAZ NETWORK STRATEGIST Ot 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, RECT 08/20/2015 LAINE DIAZ NETWORK STRATEGIST Ot Z92.21 PERSONAL HISTORY OF ANTINEOPLASTIC CHEMO 08/20/2015 DIAZLAINE Millan S NETWORK STRATEGIST Ot Z92.3 PERSONAL HISTORY OF IRRADIATION 08/20/2015 DIAZLAINE Millan NETWORK STRATEGIST Ot N50.3 CYST OF EPIDIDYMIS 08/20/2015 MARLYSVAUGHN DRAPER N Ot C21.0 MALIGNANT NEOPLASM OF ANUS, UNSPECIFIED 08/20/2015 VAUGHN FRANKEL Ot R74.0 NONSPEC ELEV OF LEVELS OF TRANSAMNS LA 08/20/2015 VAUGHN FRANKEL Ot Z92.21 PERSONAL HISTORY OF ANTINEOPLASTIC CHEMO 08/20/2015 VAUGHN FRANKEL Ot Z92.3 PERSONAL HISTORY OF IRRADIATION 08/20/2015 LAINE DIAZ NETWORK STRATEGIST Ot C21.1 MALIGNANT NEOPLASM OF ANAL CANAL 08/20/2015 DIAZLAINE Millan NETWORK STRATEGIST Ot N50.3 CYST OF EPIDIDYMIS 08/20/2015 LAINE DIAZ S NETWORK STRATEGIST Ot C21.0 MALIGNANT NEOPLASM OF ANUS, UNSPECIFIED 08/20/2015 DIAZLAINE Millan S NETWORK STRATEGIST Ot Z92.21 PERSONAL HISTORY OF ANTINEOPLASTIC CHEMO 08/20/2015 DIAZIVYREKHA S NETWORK STRATEGIST Ot Z92.3 PERSONAL HISTORY OF IRRADIATION 08/21/2015 DIAZLAINE Millan NETWORK STRATEGIST Ot C21.1 MALIGNANT NEOPLASM OF ANAL CANAL 08/24/2015 VAUGHN FRANKEL Ot C21.0 MALIGNANT NEOPLASM OF ANUS, UNSPECIFIED 08/24/2015 VAUGHN FRANKEL Ot R74.0 NONSPEC ELEV OF LEVELS OF TRANSAMNS LA 08/24/2015 VAUGHN FRANKEL Ot Z45.2 ENCOUNTER FOR ADJUSTMENT AND MANAGEMENT 08/24/2015 VAUGHN FRANKEL Ot Z92.21 PERSONAL HISTORY OF ANTINEOPLASTIC CHEMO 08/24/2015 VAUGHN FRANKEL Ot Z92.3 PERSONAL HISTORY OF IRRADIATION 08/26/2015 VAUGHN FRANKEL Ot C21.0 MALIGNANT NEOPLASM OF ANUS, UNSPECIFIED 08/26/2015 VAUGHN FRANKEL Ot R74.0 NONSPEC ELEV OF LEVELS OF TRANSAMNS LA 08/26/2015 VAUGHN FRANKEL Ot Z45.2 ENCOUNTER FOR ADJUSTMENT AND MANAGEMENT 08/26/2015 VAUGHN FRANKEL Ot Z92.21 PERSONAL HISTORY OF ANTINEOPLASTIC CHEMO 08/26/2015 VAUGHN FRANKEL Ot Z92.3 PERSONAL HISTORY OF IRRADIATION 08/28/2015 Ot 722.52 LUMB/LUMBOSAC DISC DEGEN 08/28/2015 Ot 553.1 UMBILICAL HERNIA 08/28/2015 Ot V72.63 PRE-PROCEDURAL LABORATORY EXAMINATION 08/28/2015 Ot V74.8 SCREEN-BACTERIAL DIS NEC 08/28/2015 MANASA FUNG DO Ot 240.9 GOITER NOS 08/28/2015 YOLANDA VASQUEZ DO Ot V72.84 EXAM PRE-OPERATIVE NOS 08/28/2015 Ot V72.84 EXAM PRE-OPERATIVE NOS 08/28/2015 Ot 154.3 MALIGNANT RAGHAVENDRA ANUS NOS 08/28/2015 Ot 401.9 HYPERTENSION NOS 08/28/2015 Ot V58.69 OTH MED,LT,CURRENT USE 08/28/2015 DIAZIVYAH S NETWORK STRATEGIST Ot 154.3 MALIGNANT RAGHAVENDRA ANUS NOS 08/28/2015 DIAZIVYAH S NETWORK STRATEGIST Ot 401.9 HYPERTENSION NOS 08/28/2015 DIAZIVYAH S NETWORK STRATEGIST Ot V58.69 OTH MED,LT,CURRENT USE 08/28/2015 DIAZLAINE S NETWORK STRATEGIST Ot 154.3 MALIGNANT RAGHAVENDRA ANUS NOS 08/28/2015 DIAZIVYAH S NETWORK STRATEGIST Ot 571.8 CHRONIC LIVER DIS NEC 08/28/2015 DIAZIVYAH S NETWORK STRATEGIST Ot 154.3 MALIGNANT RAGHAVENDRA ANUS NOS 08/28/2015 DIAZ HILAH S NETWORK STRATEGIST Ot 401.9 HYPERTENSION NOS 08/28/2015 DIAZIVYAH S NETWORK STRATEGIST Ot V58.69 OTH MED,LT,CURRENT USE 08/28/2015 YOLANDA VASQUEZ DO Ot V72.84 EXAM PRE-OPERATIVE NOS 08/28/2015 DIAZLAINE S NETWORK STRATEGIST Ot 154.3 MALIGNANT RAGHAVENDRA ANUS NOS 08/28/2015 LAINE DIAZ NETWORK STRATEGIST Ot 401.9 HYPERTENSION NOS 08/28/2015 LAINE DIAZ NETWORK STRATEGIST Ot V58.69 OTH MED,LT,CURRENT USE 08/28/2015 LAINE DIAZ NETWORK STRATEGIST Ot 790.4 ELEV TRANSAMINASE/LDH 08/28/2015 LAINE DIAZ NETWORK STRATEGIST Ot R74.0 NONSPEC ELEV OF LEVELS OF TRANSAMNS LA 08/28/2015 LAINE DIAZ NETWORK STRATEGIST Ot V10.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 08/28/2015 LAINE DIAZ NETWORK STRATEGIST Ot V67.1 RADIOTHERAPY FOLLOW-UP 08/28/2015 DIAZLAINE Millan NETWORK STRATEGIST Ot V67.2 CHEMOTHERAPY FOLLOW-UP 08/28/2015 LAINE DIAZ NETWORK STRATEGIST Ot 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, RECT 08/28/2015 LAINE DIAZ NETWORK STRATEGIST Ot C21.0 MALIGNANT NEOPLASM OF ANUS, UNSPECIFIED 08/28/2015 LAINE DIAZ NETWORK STRATEGIST Ot Z08 ENCNTR FOR FOLLOW-UP EXAM AFTER TRTMT FO 08/28/2015 LAINE DIAZ NETWORK STRATEGIST Ot 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, RECT 08/28/2015 LAINE DIAZ NETWORK STRATEGIST Ot Z92.21 PERSONAL HISTORY OF ANTINEOPLASTIC CHEMO 08/28/2015 DIAZLAINE Millan NETWORK STRATEGIST Ot Z92.3 PERSONAL HISTORY OF IRRADIATION 08/28/2015 JOELAINE NETWORK STRATEGIST Ot N50.3 CYST OF EPIDIDYMIS 08/28/2015 JOE LAINE Millan NETWORK STRATEGIST Ot C21.1 MALIGNANT NEOPLASM OF ANAL CANAL 08/28/2015 DIAZLAINE Millan NETWORK STRATEGIST Ot N50.3 CYST OF EPIDIDYMIS 08/28/2015 DIAZLAINE Millan NETWORK STRATEGIST Ot C21.0 MALIGNANT NEOPLASM OF ANUS, UNSPECIFIED 08/28/2015 JOELAINE NETWORK STRATEGIST Ot Z92.21 PERSONAL HISTORY OF ANTINEOPLASTIC CHEMO 08/28/2015 JOELAINE NETWORK STRATEGIST Ot Z92.3 PERSONAL HISTORY OF IRRADIATION 08/28/2015 JOE LAINE Millan NETWORK STRATEGIST Ot C21.1 MALIGNANT NEOPLASM OF ANAL CANAL 08/28/2015 VAUGHN FRANKEL N Ot C21.0 MALIGNANT NEOPLASM OF ANUS, UNSPECIFIED 08/28/2015 VAUGHN FRANKEL Yousif Ot R74.0 NONSPEC ELEV OF LEVELS OF TRANSAMNS LA 08/28/2015 VAUGHN FRANKEL Yousif Ot Z92.21 PERSONAL HISTORY OF ANTINEOPLASTIC CHEMO 08/28/2015 VAUGHN FRANKEL Yousif Ot Z92.3 PERSONAL HISTORY OF IRRADIATION 08/28/2015 DIAZLAINE Millan S NETWORK STRATEGIST Ot C21.1 MALIGNANT NEOPLASM OF ANAL CANAL 08/28/2015 LAINE DIAZ NETWORK STRATEGIST Ot N50.3 CYST OF EPIDIDYMIS 08/28/2015 DIAZLAINE Millan S NETWORK STRATEGIST Ot C21.0 MALIGNANT NEOPLASM OF ANUS, UNSPECIFIED 08/28/2015 DIAZLAINE Millan NETWORK STRATEGIST Ot Z92.21 PERSONAL HISTORY OF ANTINEOPLASTIC CHEMO 08/28/2015 DIAZLAINE Millan S NETWORK STRATEGIST Ot Z92.3 PERSONAL HISTORY OF IRRADIATION 08/28/2015 DIAZLAINE Millan S NETWORK STRATEGIST Ot C21.1 MALIGNANT NEOPLASM OF ANAL CANAL 08/28/2015 LAINE DIAZ NETWORK STRATEGIST Ot N50.3 CYST OF EPIDIDYMIS 08/28/2015 DIAZLAINE Millan S NETWORK STRATEGIST Ot C21.1 MALIGNANT NEOPLASM OF ANAL CANAL 08/29/2015 YOLANDA VASQUEZ DO Ot C21.1 MALIGNANT NEOPLASM OF ANAL CANAL 08/30/2015 VAUGHN FRANKEL Yousif Ot C21.0 MALIGNANT NEOPLASM OF ANUS, UNSPECIFIED 08/30/2015 VAUGHN FRANKEL Ot R74.0 NONSPEC ELEV OF LEVELS OF TRANSAMNS LA 08/30/2015 VAUGHN FRANKEL Yousif Ot Z45.2 ENCOUNTER FOR ADJUSTMENT AND MANAGEMENT 08/30/2015 VAUGHN FRANKEL Yousif Ot Z92.21 PERSONAL HISTORY OF ANTINEOPLASTIC CHEMO 08/30/2015 VAUGHN FRANKEL Yousif Ot Z92.3 PERSONAL HISTORY OF IRRADIATION 09/02/2015 YOLANDA VASQUEZ DO Ot C21.1 MALIGNANT NEOPLASM OF ANAL CANAL 09/04/2015 YOLANDA VASQUEZ DO Ot C21.0 MALIGNANT NEOPLASM OF ANUS, UNSPECIFIED 09/04/2015 YOLANDA VASQUEZ DO Ot Z01.818 ENCOUNTER FOR OTHER PREPROCEDURAL EXAMIN 09/04/2015 YOLANDA VASQUEZ DO Ot Z08 ENCNTR FOR FOLLOW-UP EXAM AFTER TRTMT FO 09/04/2015 YOLANDA VASQUEZ DO Ot 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, RECT 09/09/2015 YOLANDA VASQUEZ DO Ot C21.0 MALIGNANT NEOPLASM OF ANUS, UNSPECIFIED 09/09/2015 VASQUEZ YOLANDA KHAN Ot Z01.818 ENCOUNTER FOR OTHER PREPROCEDURAL EXAMIN 09/09/2015 LAINE DIAZ NETWORK STRATEGIST Ot C21.1 MALIGNANT NEOPLASM OF ANAL CANAL 09/09/2015 LAINE DIAZ NETWORK STRATEGIST Ot N50.3 CYST OF EPIDIDYMIS 09/09/2015 LAINE DIAZ NETWORK STRATEGIST Ot C21.1 MALIGNANT NEOPLASM OF ANAL CANAL 09/11/2015 LAINE DIAZ NETWORK STRATEGIST Ot C21.0 MALIGNANT NEOPLASM OF ANUS, UNSPECIFIED 09/11/2015 LAINE IDAZ NETWORK STRATEGIST Ot Z92.21 PERSONAL HISTORY OF ANTINEOPLASTIC CHEMO 09/11/2015 LAINE DIAZ NETWORK STRATEGIST Ot Z92.3 PERSONAL HISTORY OF IRRADIATION 09/13/2015 LAINE DIAZ NETWORK STRATEGIST Ot C21.0 MALIGNANT NEOPLASM OF ANUS, UNSPECIFIED 09/13/2015 LAINE DIAZ NETWORK STRATEGIST Ot Z92.21 PERSONAL HISTORY OF ANTINEOPLASTIC CHEMO 09/13/2015 LAINE DIAZ NETWORK STRATEGIST Ot Z92.3 PERSONAL HISTORY OF IRRADIATION 11/18/2015 LAINE DIAZ NETWORK STRATEGIST Ot C21.0 MALIGNANT NEOPLASM OF ANUS, UNSPECIFIED 11/18/2015 LAINE DIAZ NETWORK STRATEGIST Ot Z92.21 PERSONAL HISTORY OF ANTINEOPLASTIC CHEMO 11/18/2015 LAINE DIAZ NETWORK STRATEGIST Ot Z92.3 PERSONAL HISTORY OF IRRADIATION 11/25/2015 LAINE DIAZ NETWORK STRATEGIST Ot Z08 ENCNTR FOR FOLLOW-UP EXAM AFTER TRTMT FO 11/25/2015 LAINE DIAZ NETWORK STRATEGIST Ot 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, RECT 12/15/2015 LAINE DIAZ NETWORK STRATEGIST Ot Z08 ENCNTR FOR FOLLOW-UP EXAM AFTER TRTMT FO 12/15/2015 LAINE DIAZ NETWORK STRATEGIST Ot 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, RECT 02/19/2016 MARLYS, BOBAN N Ot C21.0 MALIGNANT NEOPLASM OF ANUS, UNSPECIFIED 02/19/2016 VAUGHN FRANKEL N Ot R74.0 NONSPEC ELEV OF LEVELS OF TRANSAMNS LA 02/19/2016 VAUGHN FRANKEL N Ot Z92.21 PERSONAL HISTORY OF ANTINEOPLASTIC CHEMO 02/19/2016 VAUGHN FRANKEL N Ot Z92.3 PERSONAL HISTORY OF IRRADIATION 02/24/2016 VAUGHN FRANKEL N Ot C21.0 MALIGNANT NEOPLASM OF ANUS, UNSPECIFIED 02/24/2016 VAUGHN FRANKEL N Ot R74.0 NONSPEC ELEV OF LEVELS OF TRANSAMNS LA 02/24/2016 VAUGHN RFANKEL N Ot Z92.21 PERSONAL HISTORY OF ANTINEOPLASTIC CHEMO 02/24/2016 VAUGHN FRANKEL N Ot Z92.3 PERSONAL HISTORY OF IRRADIATION 03/04/2016 ORENDER DO, MANASA S Ot E29.1 TESTICULAR HYPOFUNCTION 03/04/2016 ORENDER DO, MANASA S Ot R53.83 OTHER FATIGUE 04/01/2016 ORENDER DO, MANASA S Ot E29.1 TESTICULAR HYPOFUNCTION 04/01/2016 ORENDER DO, MANASA S Ot R53.83 OTHER FATIGUE 04/07/2016 VAUGHN FRANKEL N Ot C21.0 MALIGNANT NEOPLASM OF ANUS, UNSPECIFIED 04/07/2016 VAUGHN FRANKEL N Ot R74.0 NONSPEC ELEV OF LEVELS OF TRANSAMNS LA 04/07/2016 VAUGHN FRANKEL N Ot Z92.21 PERSONAL HISTORY OF ANTINEOPLASTIC CHEMO 04/07/2016 VAUGHN FRANKEL N Ot Z92.3 PERSONAL HISTORY OF IRRADIATION 05/23/2016 VAUGHN FRANKEL N Ot C21.0 MALIGNANT NEOPLASM OF ANUS, UNSPECIFIED 05/23/2016 VAUGHN FRANKEL N Ot R74.0 NONSPEC ELEV OF LEVELS OF TRANSAMNS LA 05/23/2016 VAUGHN FRANKEL N Ot Z92.21 PERSONAL HISTORY OF ANTINEOPLASTIC CHEMO 05/23/2016 VAUGHN FRANKEL N Ot Z92.3 PERSONAL HISTORY OF IRRADIATION 05/26/2016 VAUGHN FRANKEL N Ot C21.0 MALIGNANT NEOPLASM OF ANUS, UNSPECIFIED 05/26/2016 VAUGHN FRANKEL N Ot R74.0 NONSPEC ELEV OF LEVELS OF TRANSAMNS LA 05/26/2016 VAUGHN FRANKEL Ot Z92.21 PERSONAL HISTORY OF ANTINEOPLASTIC CHEMO 05/26/2016 VAUGHN FRANKEL N Ot Z92.3 PERSONAL HISTORY OF IRRADIATION 05/28/2016 MANASA FUNG DO S Ot E29.1 TESTICULAR HYPOFUNCTION 05/28/2016 MANASA FUNG DO Ot R53.83 OTHER FATIGUE 05/28/2016 VAUGHN FRANKEL Ot C21.0 MALIGNANT NEOPLASM OF ANUS, UNSPECIFIED 05/28/2016 VAUGHN FRANKEL Ot R74.0 NONSPEC ELEV OF LEVELS OF TRANSAMNS LA 05/28/2016 VAUGHN FRANKEL Ot Z92.21 PERSONAL HISTORY OF ANTINEOPLASTIC CHEMO 05/28/2016 VAUGHN FRANKEL N Ot Z92.3 PERSONAL HISTORY OF IRRADIATION 07/08/2016 VAUGHN FRANKEL Ot C21.0 MALIGNANT NEOPLASM OF ANUS, UNSPECIFIED 07/08/2016 VAUGHN FRANKEL Ot R74.0 NONSPEC ELEV OF LEVELS OF TRANSAMNS LA 07/08/2016 VAUGHN FRANKEL N Ot Z92.21 PERSONAL HISTORY OF ANTINEOPLASTIC CHEMO 07/08/2016 VAUGHN FRANKEL N Ot Z92.3 PERSONAL HISTORY OF IRRADIATION 07/29/2016 VAUGHN FRANKEL Ot C21.0 MALIGNANT NEOPLASM OF ANUS, UNSPECIFIED 07/29/2016 VAUGHN FRANKEL N Ot R74.0 NONSPEC ELEV OF LEVELS OF TRANSAMNS LA 07/29/2016 VAUGHN FRANKEL N Ot Z92.21 PERSONAL HISTORY OF ANTINEOPLASTIC CHEMO 07/29/2016 VAUGHN FRANKEL N Ot Z92.3 PERSONAL HISTORY OF IRRADIATION 08/23/2016 VAUGHN FRANKEL Ot C21.0 MALIGNANT NEOPLASM OF ANUS, UNSPECIFIED 08/23/2016 VAUGHN FRANKEL N Ot R74.0 NONSPEC ELEV OF LEVELS OF TRANSAMNS LA 08/23/2016 VAUGHN FRANKEL N Ot Z92.21 PERSONAL HISTORY OF ANTINEOPLASTIC CHEMO 08/23/2016 VAUGHN FRANKEL N Ot Z92.3 PERSONAL HISTORY OF IRRADIATION 08/24/2016 VAUGHN FRANKEL Ot C21.0 MALIGNANT NEOPLASM OF ANUS, UNSPECIFIED 08/24/2016 VAUGHN FRANKEL N Ot R74.0 NONSPEC ELEV OF LEVELS OF TRANSAMNS LA 08/24/2016 VAUGHN FRANKEL Ot Z92.21 PERSONAL HISTORY OF ANTINEOPLASTIC CHEMO 08/24/2016 VAUGHN FRANKEL Ot Z92.3 PERSONAL HISTORY OF IRRADIATION 08/25/2016 VAUGHN FRANKEL Ot C21.0 MALIGNANT NEOPLASM OF ANUS, UNSPECIFIED 08/25/2016 VAUGHN FRANKEL Ot R74.0 NONSPEC ELEV OF LEVELS OF TRANSAMNS LA 08/25/2016 VAUGHN FRANKEL Ot Z92.21 PERSONAL HISTORY OF ANTINEOPLASTIC CHEMO 08/25/2016 VAUGHN FRANKEL Ot Z92.3 PERSONAL HISTORY OF IRRADIATION 09/10/2016 LAINE DIAZ NETWORK STRATEGIST Ot C21.1 MALIGNANT NEOPLASM OF ANAL CANAL 09/10/2016 LAINE DIAZ NETWORK STRATEGIST Ot K76.0 FATTY (CHANGE OF) LIVER, NOT ELSEWHERE C 09/20/2016 ORENDER DOTANAMANASA S Ot E29.1 TESTICULAR HYPOFUNCTION 09/21/2016 LAINE DIAZ NETWORK STRATEGIST Ot C21.1 MALIGNANT NEOPLASM OF ANAL CANAL 09/21/2016 LAINE DIAZ NETWORK STRATEGIST Ot K76.0 FATTY (CHANGE OF) LIVER, NOT ELSEWHERE C 09/21/2016 ORENDER DO, MANASA S Ot E29.1 TESTICULAR HYPOFUNCTION 09/29/2016 LAINE DIAZ S NETWORK STRATEGIST Ot C21.1 MALIGNANT NEOPLASM OF ANAL CANAL 09/29/2016 LAINE DIAZ S NETWORK STRATEGIST Ot K76.0 FATTY (CHANGE OF) LIVER, NOT ELSEWHERE C 09/29/2016 ORENDER DOTANAMANASA S Ot E29.1 TESTICULAR HYPOFUNCTION 11/24/2016 VAUGHN FRANKEL Ot C21.0 MALIGNANT NEOPLASM OF ANUS, UNSPECIFIED 11/24/2016 VAUGHN FRANKEL Ot R74.0 NONSPEC ELEV OF LEVELS OF TRANSAMNS LA 11/24/2016 VAUGHN FRANKEL Ot Z92.21 PERSONAL HISTORY OF ANTINEOPLASTIC CHEMO 11/24/2016 VAUGHN FRANKEL Ot Z92.3 PERSONAL HISTORY OF IRRADIATION 11/25/2016 ORENDER DOTANAMANASA S Ot E29.1 TESTICULAR HYPOFUNCTION 11/25/2016 NYANDER DOARMANDMANASA S Ot R53.83 OTHER FATIGUE 11/25/2016 LAINE DIAZ NETWORK STRATEGIST Ot C21.1 MALIGNANT NEOPLASM OF ANAL CANAL 11/25/2016 LAINE DIAZ NETWORK STRATEGIST Ot K76.0 FATTY (CHANGE OF) LIVER, NOT ELSEWHERE C 11/25/2016 VAUGHN FRANKEL N Ot C21.0 MALIGNANT NEOPLASM OF ANUS, UNSPECIFIED 11/25/2016 VAUGHN FRANKEL N Ot R74.0 NONSPEC ELEV OF LEVELS OF TRANSAMNS LA 11/25/2016 VAUGHN FRANKEL N Ot Z92.21 PERSONAL HISTORY OF ANTINEOPLASTIC CHEMO 11/25/2016 MARLYSVAUGHN DRAPER N Ot Z92.3 PERSONAL HISTORY OF IRRADIATION 11/25/2016 ANTONIETA KHAN MANASA S Ot E29.1 TESTICULAR HYPOFUNCTION 11/25/2016 MARLYSVAUGHN DRAPER N Ot C21.0 MALIGNANT NEOPLASM OF ANUS, UNSPECIFIED 11/25/2016 VAUGHN FRANKEL N Ot R74.0 NONSPEC ELEV OF LEVELS OF TRANSAMNS LA 11/25/2016 VAUGHN FRANKEL N Ot Z92.21 PERSONAL HISTORY OF ANTINEOPLASTIC CHEMO 11/25/2016 VAUGHN FRANKEL N Ot Z92.3 PERSONAL HISTORY OF IRRADIATION 11/26/2016 VAUGHN FRANKEL N Ot C21.0 MALIGNANT NEOPLASM OF ANUS, UNSPECIFIED 11/26/2016 VAUGHN FRANKEL N Ot R74.0 NONSPEC ELEV OF LEVELS OF TRANSAMNS LA 11/26/2016 VAUGHN FRANKEL N Ot Z92.21 PERSONAL HISTORY OF ANTINEOPLASTIC CHEMO 11/26/2016 VAUGHN FRANKEL N Ot Z92.3 PERSONAL HISTORY OF IRRADIATION 12/01/2016 VAUGHN FRANKEL N Ot C21.0 MALIGNANT NEOPLASM OF ANUS, UNSPECIFIED 12/01/2016 VAUGHN FRANKEL N Ot R74.0 NONSPEC ELEV OF LEVELS OF TRANSAMNS LA 12/01/2016 VAUGHN FRANKEL N Ot Z92.21 PERSONAL HISTORY OF ANTINEOPLASTIC CHEMO 12/01/2016 VAUGHN FRANKEL N Ot Z92.3 PERSONAL HISTORY OF IRRADIATION 01/15/2017 VAUGHN FRANKEL N Ot C21.0 MALIGNANT NEOPLASM OF ANUS, UNSPECIFIED 01/15/2017 VAUGHN FRANKEL N Ot R74.0 NONSPEC ELEV OF LEVELS OF TRANSAMNS LA 01/15/2017 MARLYS COLEKODAK N Ot Z92.21 PERSONAL HISTORY OF ANTINEOPLASTIC CHEMO 01/15/2017 VAUGHN FRANKEL Ot Z92.3 PERSONAL HISTORY OF IRRADIATION 02/02/2017 VAUGHN FRANKEL Ot C21.0 MALIGNANT NEOPLASM OF ANUS, UNSPECIFIED 02/02/2017 VAUGHN FRANKEL Ot R74.0 NONSPEC ELEV OF LEVELS OF TRANSAMNS LA 02/02/2017 VAUGHN FRANKEL Ot Z92.21 PERSONAL HISTORY OF ANTINEOPLASTIC CHEMO 02/02/2017 VAUGHN FRANKEL Ot Z92.3 PERSONAL HISTORY OF IRRADIATION Procedures Results Test Result Range Serum or plasma prolactin measurement (mass/volume) - 03/03/16 09:45 Serum or plasma prolactin measurement (mass/volume) 12.9 % 2.1-17.7 Serum or plasma testosterone measurement (mass/volume) - 03/03/16 09:45 Testosterone [mass or moles/volume] in serum or plasma 196 % 241-827 Prostate specific ag [mass/volume] in serum or plasma - 03/03/16 09:45 Prostate specific ag [mass/volume] in serum or plasma 0.37 % 0.00-4.00 Encounters ACCT No. Visit Date/Time Discharge Status Pt. Type Provider Facility Loc./Unit Complaint [id number] 02/08/2017 05:36:00 2016 11:40:00 DIS Outpatient YOLANDA VASQUEZ DO [facility] PREOP BLEEDING PER RECTUM/HX ANAL CA [id number] 01/16/2017 00:38:00 2016 23:59:59 CLS Preadmit MARLYSCOLEKODAK Dodd [facility] ONC [id number] 11/25/2016 12:54:00 2016 00:01:00 DIS Outpatient MARLYS COLEKODAK Dodd [facility] ONC [id number] 08/23/2016 13:51:00 2016 23:59:59 CLS Outpatient MANASA FUNG DO [facility] LAB MALE HYPOGONADISM [id number] 08/23/2016 13:09:00 2016 00:01:00 DIS Outpatient VAUGHN FRANKEL [facility] ONC [id number] 08/17/2016 13:04:00 2016 23:59:59 CLS Outpatient LAINE DIAZ NETWORK STRATEGIST [facility] RAD ANAL CA [id number] 02/23/2016 12:57:00 2016 00:01:00 DIS Outpatient VAUGHN FRANKEL [facility] ONC [id number] 03/03/2016 09:33:00 2015 23:59:59 CLS Outpatient NYANDER MANASA S [facility] LAB MALE HYPOTESTOSTERONE, FATIGUE [id number] 11/24/2015 14:41:00 2015 23:59:59 CLS Outpatient LAINE DIAZ NETWORK STRATEGIST [facility] ONC [id number] 09/04/2015 08:52:00 2015 12:00:00 DIS Outpatient YOLANDA VASQUEZ DO [facility] HISTORY OF CANCER [id number] 09/03/2015 05:38:00 2015 13:17:00 DIS Outpatient YOLANDA VASQUEZ DO [facility] PREOP [id number] 08/29/2015 13:24:00 2015 16:15:00 DIS Outpatient YOLANDA VASQUEZ DO [facility] HX ANAL CA [id number] 07/23/2015 14:54:00 2015 00:01:00 DIS Outpatient VAUGHN FRANKEL [facility] ONC [id number] 08/20/2015 12:19:00 2015 23:59:59 CLS Outpatient LAINE DIAZ NETWORK STRATEGIST [facility] RAD [id number] 08/18/2015 13:44:00 2015 23:59:59 CLS Outpatient LAINE DIAZ NETWORK STRATEGIST [facility] ONC [id number] 07/25/2015 13:47:00 2015 23:59:59 CLS Outpatient LAINE DIAZ NETWORK STRATEGIST [facility] RAD [id number] 07/23/2015 16:30:00 2015 23:59:59 CLS Outpatient DIAZLAINE Millan S NETWORK STRATEGIST [facility] ONC [id number] 03/04/2015 14:57:00 2015 00:01:00 DIS Outpatient VAUGHN FRANKEL [facility] ONC [id number] 03/11/2015 08:49:00 2014 23:59:59 CLS Outpatient DIAZLAINE Millan S NETWORK STRATEGIST [facility] RAD [id number] 03/04/2015 14:55:00 2014 23:59:59 CLS Outpatient DIAZLAINE Millan S NETWORK STRATEGIST [facility] ONC [id number] 02/04/2015 09:48:00 2014 23:59:59 CLS Outpatient DIAZLAINE Millan S NETWORK STRATEGIST [facility] RAD [id number] 12/18/2014 11:27:00 2014 00:01:00 DIS Outpatient VAUGHN FRANKEL [facility] ONC [id number] 12/31/2014 13:08:00 2014 23:59:59 CLS Outpatient LAINE DIAZ S NETWORK STRATEGIST [facility] ONC [id number] 10/23/2014 11:01:00 2014 23:59:59 CLS Outpatient LAINE DIAZ S NETWORK STRATEGIST [facility] ONC [id number] 10/08/2014 11:46:00 2014 14:45:00 DIS Outpatient YOLANDA VASQUEZ DO [facility] [id number] 10/03/2014 05:46:00 2014 23:59:59 CLS Outpatient YOLANDA VASQUEZ DO [facility] PREOP [id number] 09/18/2014 10:57:00 2014 23:59:59 CLS Outpatient DIAZLAINE Millan S NETWORK STRATEGIST [facility] ONC [id number] 08/26/2014 08:59:00 2014 00:01:00 DIS Outpatient VAUGHN FRANKEL [facility] ONC [id number] 09/11/2014 09:50:00 2014 23:59:59 CLS Outpatient LAINE DIAZ NETWORK STRATEGIST [facility] RAD [id number] 08/26/2014 08:58:00 2014 23:59:59 CLS Outpatient LAINE DIAZ NETWORK STRATEGIST [facility] ONC [id number] 05/31/2014 09:31:00 2014 13:10:00 DIS Outpatient YOLANDA VASQUEZ DO [facility] SDC [id number] 05/29/2014 11:41:00 2014 23:59:59 CLS Outpatient YOLANDA VASQUEZ DO [facility] PREOP [id number] 05/16/2014 10:33:00 2014 23:59:59 CLS Outpatient NYAHAMYADIRA MANASA KHAN [facility] RAD [id number] 05/13/2014 14:04:00 2014 16:50:00 DIS Emergency KAYDEN NUNES APRN [facility] ER [id number] 02/20/2013 10:43:00 2012 12:31:00 DIS Emergency KAYDEN NUNES NETWORK STRATEGIST [facility] ER [id number] 01/17/2013 15:17:00 2012 17:15:00 DIS Emergency VERONICA SHEPHERD, DAVID Medrano [facility] ER [id number] 10/03/2012 20:49:00 2012 06:40:00 DIS Outpatient LASHLEL SHEPHERD, CURRY Sánchez [facility] SLEEP [id number] 09/14/2012 19:46:00 2012 06:45:00 DIS Outpatient LAYLA SHEPHERD, LI Gomez [facility] SLEEP [id number] 08/05/2012 15:50:00 2012 19:05:00 DIS Emergency SEMAJ SHEPHERD, GISEL Gomez [facility] ER [id number] 02/15/2017 08:00:00 PEN Preadmit YOLANDA VASQUEZ DO [facility] ENDO BLEEDING PER RECTUM/ HX ANAL CA [id number] 07/26/2014 09:12:00 Document Registration [id number] 07/25/2014 14:22:00 Document Registration [id number] 06/18/2014 13:41:00 Document Registration [id number] 06/13/2014 11:34:00 Document Registration [id number] 06/07/2014 13:12:00 Document Registration [id number] 11/02/2011 05:35:00 Document Registration [id number] 10/28/2011 08:12:00 Document Registration [id number] 02/28/2011 19:07:00 Document Registration [id number] 07/28/2010 16:00:00 Document Registration [id number] 05/09/2009 13:30:00 Document Registration
[2017-02-15] MEDS ORDERED: LACTATED RINGERS 1,000 ML IV ONE (07:14)
[2017-02-15 07:18] VITALS: BP 150/116
[2017-02-15] MEDS ORDERED: fentaNYL INJECTION 100 MCG/2 ML AMP IVP ONE (07:30)
--- NOTE | 2017-02-15 08:11 | Progress Note-Pre Operative ---
Pre-Operative Progress Note H&P Reviewed The H&P was reviewed, patient examined and no changes noted. Date Seen by Provider: Feb 15, 2017 Time Seen by Provider: 08:11 Date H&P Reviewed: Feb 15, 2017 Time H&P Reviewed: 08:11 Pre-Operative Diagnosis: bleeding per rectum, hx anal cancer YOLANDA VASQUEZ DO Feb 15, 2017 08:11
--- NOTE | 2017-02-15 08:54 | Progress Note-Post Operative ---
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
--- NOTE | 2017-02-15 08:55 | Discharge Inst-Simple/Standard ---
Discharge Inst-Standard Patient Instructions/Follow Up Plan of Care/Instructions/FU: 2 weeks Adina Activity as Tolerated: Yes Discharge Diet: Regular Diet YOLANDA VASQUEZ DO Feb 15, 2017 08:55
[2017-02-15 09:15] VITALS: BP 123/80
[2017-02-15 09:20] VITALS: BP 136/101
[2017-02-15 09:35] VITALS: BP 136/101
--- NOTE | 2017-02-15 19:26 | OPERATIVE REPORT ---
DATE OF SERVICE: 02/15/2017 PREOPERATIVE DIAGNOSIS: Bleeding per rectum, history of anal cancer. POSTOPERATIVE DIAGNOSIS: Erythematous lesion in the rectum. PROCEDURE PERFORMED: Colonoscopy with hot biopsy of the rectum. PROCEDURE: Colonoscopy with hot biopsy rectum. SURGEON: Yolanda Holden D.O. ANESTHESIA: Per WARDROBE COORDINATOR. ESTIMATED BLOOD LOSS: None. COMPLICATIONS: None. INDICATIONS: The patient is a 41-year-old male with history of anal cancer. He has been having some bleeding per rectum. He understands risks and benefits of procedure and wished to proceed with procedure. Consent was signed in the chart. PROCEDURE: The patient was taken to the endoscopy suite, placed in left lateral recumbent position. Timeout was performed. Digital rectal exam was performed. There were no palpable polyps, masses or ulcerations. Scope was inserted in the rectum and advanced all the way to the cecum with minimal difficulty. Prep was adequate. Scope was then slowly retracted back. There were no polyps, masses or ulcerations in the cecum, ascending, transverse, descending and sigmoid colon. Once in the rectum there was a small erythematous lesions noted. Hot biopsy of this area was obtained. The scope was also retroflexed noting no other pathology. Scope was returned to its normal position, slowly withdrawn until completely removed, noting no other pathology. The patient tolerated procedure well without any complications and taken to the recovery room in stable condition. RECOMMENDATIONS: The patient will follow up in office in two weeks to discuss pathology results. Would recommend repeat colonoscopy in three years depending upon pathology results. If he has any problems prior to that, he should be reevaluated at that time. Job ID: [id number] DocumentID: [id number] Dictated Date: 02/15/2017 08:58:30 [employer] Date: 02/15/2017 19:25:54 Dictated By: YOLANDA HOLDEN DO
== END 2017-02-15 09:35 | disposition home or self-care (01) ==
LOC: ENDO 06:50
PROVIDERS: ATTEND Surgery
DX: K62.5 Hemorrhage of anus and rectum (principal); K63.9 Disease of intestine, unspecified; Z85.048 Personal history of other malignant neoplasm of rectum, rectosigmoid junction, and anus

== ENCOUNTER 2017-03-24 12:51 | Outpatient (RCR) | payer SELFPAY ==
[2017-03-24 13:13] LABS: BASOPHILS % (AUTO) 0 % (0-10); EOSINOPHILS # (AUTO) 0.1 10^3/uL (0.0-0.3); EOSINOPHILS % (AUTO) 1 % (0-10); HEMATOCRIT 47 % (40-54); LYMPHOCYTES # (AUTO) 1.4 X 10^3 (1.0-4.0); LYMPHOCYTES % (AUTO) 18 % (12-44); MEAN CORPUSCULAR HEMOGLOBIN 30 PG (25-34); MEAN CORPUSCULAR HGB CONC 34 G/DL (32-36); MEAN CORPUSCULAR VOLUME 89 FL (80-99); MEAN PLATELET VOLUME 10.3 FL (7.4-10.4); MONOCYTES # (AUTO) 0.7 X 10^3 (0.0-1.0); MONOCYTES % (AUTO) 9 % (0-12); NEUTROPHILS # (AUTO) 5.6 X 10^3 (1.8-7.8); NEUTROPHILS % (AUTO) 71 % (42-75); PLATELET COUNT 215 10^3/uL (130-400); RED BLOOD COUNT 5.28 10^6/uL (4.35-5.85); RED CELL DISTRIBUTION WIDTH 13.5 % (10.0-14.5); WHITE BLOOD COUNT 7.8 10^3/uL (4.3-11.0)
[2017-03-24 13:32] LABS: ALANINE AMINOTRANSFERASE 53 U/L (0-55); ALBUMIN 4.3 GM/DL (3.2-4.5); ALKALINE PHOSPHATASE 55 U/L (40-136); BILIRUBIN,TOTAL 0.4 MG/DL (0.1-1.0); BUN/CREATININE RATIO 9; CALCIUM 9.9 MG/DL (8.5-10.1); CARBON DIOXIDE 25 MMOL/L (21-32); CHLORIDE 104 MMOL/L (98-107); CREATININE SERUM 0.76 MG/DL (0.60-1.30); GFR ESTIMATED > 60; GLUCOSE 128 MG/DL (70-105); POTASSIUM 4.1 MMOL/L (3.6-5.0); SODIUM 137 MMOL/L (135-145); TOTAL PROTEIN 7.8 GM/DL (6.4-8.2)
== END 2017-06-22 | disposition home or self-care (01) ==
LOC: ONC 12:51
PROVIDERS: ATTEND Internal Medicine Hematology & Oncology
DX: C21.1 Malignant neoplasm of anal canal (principal); K76.0 Fatty (change of) liver, not elsewhere classified; R74.0 Nonspecific elevation of levels of transaminase and lactic acid dehydrogenase [LDH]; E66.01 Morbid (severe) obesity due to excess calories; Z68.42 Body mass index [BMI] 45.0-49.9, adult; Z92.21 Personal history of antineoplastic chemotherapy; Z92.3 Personal history of irradiation
CPT/HCPCS: 36415; 80053; 85025; 99213

== ENCOUNTER 2017-08-15 08:30 | Outpatient (CLI) | payer BC ==
[~2017-08-15] VITALS: Ht 165.1 cm; Wt 131.5 kg
[2017-08-15] MEDS ORDERED: OMEP20TA33 PO (08:46)
[2017-08-15] MEDS ORDERED: NEBI5TAB8 PO (08:46)
== END 2017-08-15 09:04 ==
LOC: PREOP 08:30
PROVIDERS: ATTEND Surgery
DX: Z01.818 Encounter for other preprocedural examination (principal); K62.5 Hemorrhage of anus and rectum; Z85.048 Personal history of other malignant neoplasm of rectum, rectosigmoid junction, and anus

== ENCOUNTER 2017-09-22 15:00 | Outpatient (RCR) | payer BC ==
[~2017-09-22 15:00] MED LIST changes: +NEBI5TAB8 PO; +OMEP20TA33 PO
[2017-09-22 15:13] LABS: BASOPHILS % (AUTO) 0 % (0-10); EOSINOPHILS # (AUTO) 0.1 10^3/uL (0.0-0.3); EOSINOPHILS % (AUTO) 1 % (0-10); HEMATOCRIT 45 % (40-54); HEMOGLOBIN 15.4 G/DL (13.3-17.7); LYMPHOCYTES # (AUTO) 1.6 X 10^3 (1.0-4.0); LYMPHOCYTES % (AUTO) 21 % (12-44); MEAN CORPUSCULAR HEMOGLOBIN 30 PG (25-34); MEAN CORPUSCULAR HGB CONC 34 G/DL (32-36); MEAN CORPUSCULAR VOLUME 88 FL (80-99); MEAN PLATELET VOLUME 10.6 FL (7.4-10.4); MONOCYTES # (AUTO) 0.7 X 10^3 (0.0-1.0); MONOCYTES % (AUTO) 9 % (0-12); NEUTROPHILS # (AUTO) 5.2 X 10^3 (1.8-7.8); NEUTROPHILS % (AUTO) 69 % (42-75); PLATELET COUNT 214 10^3/uL (130-400); RED BLOOD COUNT 5.15 10^6/uL (4.35-5.85); RED CELL DISTRIBUTION WIDTH 13.9 % (10.0-14.5); WHITE BLOOD COUNT 7.5 10^3/uL (4.3-11.0)
[2017-09-22 15:40] LABS: ALANINE AMINOTRANSFERASE 63 U/L (0-55); ALBUMIN 4.2 GM/DL (3.2-4.5); ALKALINE PHOSPHATASE 53 U/L (40-136); BILIRUBIN,TOTAL 0.3 MG/DL (0.1-1.0); BUN/CREATININE RATIO 16; CALCIUM 9.4 MG/DL (8.5-10.1); CARBON DIOXIDE 21 MMOL/L (21-32); CHLORIDE 107 MMOL/L (98-107); GFR ESTIMATED > 60; GLUCOSE 118 MG/DL (70-105); POTASSIUM 4.1 MMOL/L (3.6-5.0); SODIUM 140 MMOL/L (135-145); TOTAL PROTEIN 7.2 GM/DL (6.4-8.2)
== END 2017-12-21 | disposition home or self-care (01) ==
LOC: ONC 15:00
PROVIDERS: ATTEND Internal Medicine Hematology & Oncology
DX: C21.1 Malignant neoplasm of anal canal (principal); K76.0 Fatty (change of) liver, not elsewhere classified; R74.0 Nonspecific elevation of levels of transaminase and lactic acid dehydrogenase [LDH]; E66.01 Morbid (severe) obesity due to excess calories; Z68.42 Body mass index [BMI] 45.0-49.9, adult; Z92.21 Personal history of antineoplastic chemotherapy; Z92.3 Personal history of irradiation
CPT/HCPCS: 36415; 80053; 85025; 99213

== ENCOUNTER 2018-03-08 15:40 | Outpatient (CLI) | payer BC ==
[~2018-03-08] VITALS: Ht 165.1 cm; Wt 131.5 kg
== END 2018-03-08 15:51 | disposition home or self-care (01) ==
LOC: PREOP 15:40
PROVIDERS: ATTEND Surgery
DX: Z01.818 Encounter for other preprocedural examination (principal)

== ENCOUNTER 2018-03-14 12:05 | Day surgery (SDC) | payer BC ==
[~2018-03-14] VITALS: Ht 165.1 cm; Wt 131.5 kg
--- OUTSIDE RECORDS SUMMARY | 2018-03-14 12:09 | XMS REPORT ---
Author Author ELEANOR COHEN Organization [facility] Address [address] [place] [address] Care Team Providers Care Cracking Still Operator Name Role Phone ELEANOR COHEN Unavailable PROBLEMS Unknown Problems ALLERGIES No Information ENCOUNTERS Encounter Location Date Diagnosis [facility] [id number] [place] [phone] Jan, Encounter for immunization Z23 [facility] [id number] [place] [phone] May, [facility] [id number] [place] [phone] Dec, Blood in stool K92.1 and Positive occult stool blood test R19.5 [facility] [id number] [place] [phone] Nov, Screening for tuberculosis Z11.1 and Physical exam Z00.00 IMMUNIZATIONS Vaccine Route Administration Date Status FLULAVAL QUAD 0.5ML (6 MO & UP) 2018 IM Intramuscular Feb 08, 2018 Administered SOCIAL HISTORY Never Assessed REASON FOR VISIT Flu shot PLAN OF CARE VITAL SIGNS MEDICATIONS Unknown Medications RESULTS No Results PROCEDURES Procedure Date Ordered Result Body Site FLULAVAL QUAD 0.5ML (6 MO AND UP) 2017Feb 08, 2018 SINGLE IMMUNIZATION ADMIN Feb 08, 2018 INSTRUCTIONS MEDICATIONS ADMINISTERED No Known Medications MEDICAL (GENERAL) HISTORY Type Description Date Medical History acid reflux Medical History Pre diabetic Medical History rectal cancer June 2014-August 2014 - chemo/radiation completed Surgical History carpal tunnel -rt hand Surgical History bulging disc repair Surgical History vasectomy Surgical History bilateral epididymectomy Surgical History Nipple laceration. Sutured back on. 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
--- OUTSIDE RECORDS SUMMARY | 2018-03-14 12:13 | XMS REPORT | Continuity of Care Document ---
Author Author [facility] Organization [facility] Address Unknown Phone Unavailable Allergies Active Description Code Type Severity Reaction Onset Reported/Identified Relationship to Patient Clinical Status Yes No Known Drug Allergies [id number] Drug Allergy Unknown N/A 10/11/2008 Yes latex [id number] Drug Allergy Mild RASH 03/08/2018 Yes TAPE TAPE Mild N/ A 03/08/2018 Medications There is no data. Problems Date Dx Coded Attending Type Code [...] Gomez Ot 780.79 OTH MALAISE FATIGUE 09/15/2012 LAYLA SHEPHERD, LI Gomez Ot 784.0 HEADACHE 10/04/2012 LASHELL SHEPHERD, CURRY Sánchez Ot 327.23 OBSTRUCTIVE SLEEP APNEA (ADULT) (PEDIATR 01/17/2013 VERONICA SHEPHERD, DAVID Medrano Ot 346.90 MIGRAINE UNSPECIFIED W/O INTRACT MGRN W/ 01/17/2013 VERONICA SHEPHERD, DAVID Medrano Ot 784.0 HEADACHE 02/20/2013 KAYDEN NUNES MINI SHIFTER Ot 784.0 HEADACHE 05/13/2014 Ot 722.93 05/13/2014 Ot 722.52 05/13/2014 Ot 553.1 05/13/2014 Ot V72.63 05/13/2014 Ot V74.8 05/13/2014 KAYDEN NUNES MINI SHIFTER Ot 785.6 ENLARGEMENT LYMPH NODES 05/13/2014 KAYDEN NUNES MINI SHIFTER Ot 789.09 ABDOMINAL PAIN, OTHER SPECIFIED SITE 05/17/2014 Ot 722.93 05/17/2014 Ot 722.52 05/17/2014 Ot 553.1 05/17/2014 Ot V72.63 05/17/2014 Ot V74.8 05/31/2014 VASQUEZ YOLANDA KHAN Ot 154.8 MAL RAGHAVENDRA RECTUM/ANUS NEC 05/31/2014 VASQUEZ YOLANDA KHAN Ot 211.3 BENIGN NEOPLASM LG BOWEL 05/31/2014 VASQUEZ YOLANDA KHAN Ot 558.9 NONINF GASTROENTERIT NEC 05/31/2014 VASQUEZ YOLANDA KHAN Ot 787.99 06/11/2014 Ot 722.93 06/11/2014 Ot 722.52 06/11/2014 Ot 553.1 06/11/2014 Ot V72.63 06/11/2014 Ot V74.8 06/11/2014 NICKY FAIRCHILD DO Ot 240.9 06/11/2014 VASQUEZ YOLANDA KHAN Ot V72.84 06/12/2014 Ot 154.8 06/13/2014 Ot 154.3 MALIGNANT RAGHAVENDRA ANUS NOS 06/14/2014 Ot 154.8 06/14/2014 Ot 722.93 06/14/2014 Ot 722.52 06/14/2014 Ot 553.1 06/14/2014 Ot V72.63 06/14/2014 Ot V74.8 06/14/2014 NICKY FAIRCHILD DO S Ot 240.9 06/14/2014 VASQUEZ YOLANDA KHAN Ot V72.84 06/14/2014 Ot V72.84 07/12/2014 MARLYS, [...] 07/25/2014 Ot V72.63 07/25/2014 Ot V74.8 07/25/2014 NICKY FAIRCHILD DO Ot 240.9 07/25/2014 YOLANDA VASQUEZ DO Ot V72.84 07/25/2014 MARLYS, BOBAN N Ot 154.3 07/25/2014 MARLYS, BOBAN N Ot 346.90 07/25/2014 VAUGHN FRANKEL N Ot 401.9 07/25/2014 VAUGHN FRANKEL Ot V58.69 07/25/2014 Ot V72.84 07/25/2014 Ot 154.3 07/25/2014 Ot 401.9 07/25/2014 Ot V58.69 07/26/2014 Ot 154.8 09/12/2014 VAUGHN FRANKEL N Ot 154.3 MALIGNANT RAGHAVENDRA ANUS NOS 09/12/2014 VAUGHN FRANKEL Ot 346.90 MIGRAINE UNSPECIFIED W/O INTRACT MGRN W/ 09/12/2014 VAUGHN FRANKEL N Ot 401.9 HYPERTENSION NOS 09/12/2014 VAUGHN FRANKEL Ot V58.0 ENCOUNTER FOR RADIOTHERAPY 09/12/2014 VAUGHN FRANKEL Ot V58.69 OTH MED,LT,CURRENT USE 09/12/2014 LANIE DIAZ WATER MAIN INSPECTOR Ot 154.3 09/12/2014 LAINE DIAZ WATER MAIN INSPECTOR Ot 571.8 09/30/2014 LAINE DIAZ WATER MAIN INSPECTOR Ot 154.3 09/30/2014 LAINE DIAZ WATER MAIN INSPECTOR Ot 401.9 09/30/2014 LAINE DIAZ WATER MAIN INSPECTOR Ot V58.69 10/08/2014 YOLANDA VASQUEZ DO Ot 154.2 MALIG NEOPL ANAL CANAL 10/08/2014 YOLANDA VASQUEZ DO Ot V15.3 HX OF IRRADIATION 10/08/2014 YOLANDA VASQUEZ DO Ot V87.41 PERSONAL HISTORY OF ANTINEOPLASTIC CHEMO 10/17/2014 LAINE DIAZ WATER MAIN INSPECTOR Ot 154.3 10/17/2014 LAINE DIAZ WATER MAIN INSPECTOR Ot 571.8 10/17/2014 LAINE DIAZ WATER MAIN INSPECTOR Ot 154.3 10/17/2014 LAINE DIAZ WATER MAIN INSPECTOR Ot 401.9 10/17/2014 LAINE DIAZ WATER MAIN INSPECTOR Ot V58.69 10/22/2014 LAINE DIAZ WATER MAIN INSPECTOR Ot 154.3 10/22/2014 DIAZLAINE Millan WATER MAIN INSPECTOR Ot 401.9 10/22/2014 LAINE DIAZ WATER MAIN INSPECTOR Ot V58.69 10/22/2014 LAINE DIAZ WATER MAIN INSPECTOR Ot 154.3 10/22/2014 LAINE DIAZ WATER MAIN INSPECTOR Ot 571.8 10/23/2014 MARLYS, BOBAN N Ot 154.3 10/23/2014 MARLYS, BOBAN N Ot 346.90 10/23/2014 MARLYS, BOBAN N Ot 401.9 10/23/2014 MARLYS, BOBAN N Ot V58.69 11/20/2014 MARLYS, BOBAN N Ot 154.3 11/20/2014 MARLYS, BOBAN N Ot 346.90 11/20/2014 MARLYS, BOBAN N Ot 401.9 11/20/2014 MARLYS, BOBAN N Ot V58.69 11/21/2014 MARLYS, BOBAN N Ot 154.3 11/21/2014 MARLYS, BOBAN N Ot 346.90 11/21/2014 MARLYS, BOBAN N Ot 401.9 11/21/2014 MARLYS, BOBAN N Ot V58.69 11/21/2014 LAINE DIAZ WATER MAIN INSPECTOR Ot 154.3 11/21/2014 LAINE DIAZ S WATER MAIN INSPECTOR Ot 401.9 11/21/2014 LAINE DIAZ WATER MAIN INSPECTOR Ot V58.69 12/13/2014 MARLYS, BOBAN N Ot 154.3 12/13/2014 MARLYS, BOBAN N Ot 346.90 12/13/2014 MARLYS, BOBAN N Ot 401.9 12/13/2014 MARLYS, BOBAN N Ot V58.69 12/13/2014 MARLYS, BOBAN N Ot V58.81 01/07/2015 LAINE DIAZ WATER MAIN INSPECTOR Ot 790.4 01/07/2015 LAINE DIAZ WATER MAIN INSPECTOR Ot V10.06 01/07/2015 LAINE DIAZ WATER MAIN INSPECTOR Ot V67.1 01/07/2015 LAINE DIAZ WATER MAIN INSPECTOR Ot V67.2 01/15/2015 MARLYS, BOBAN N Ot 154.3 MALIGNANT RAGHAVENDRA ANUS NOS 01/15/2015 MARLYS, BOBAN N Ot 346.90 MIGRAINE UNSPECIFIED W/O INTRACT MGRN W/ 01/15/2015 MARLYS, BOBAN N Ot 401.9 HYPERTENSION NOS 01/15/2015 MARLYSCOLE DRAPERAN N Ot V58.69 OTH MED,LT,CURRENT USE 01/15/2015 MARLYS, BOBAN N Ot V58.81 FIT/ADJ VASCULAR CATHETER 02/04/2015 Ot 722.52 02/04/2015 Ot 553.1 02/04/2015 Ot V72.63 02/04/2015 Ot V74.8 02/04/2015 NICKY FAIRCHILD DO Ot 240.9 02/04/2015 [facility] YOLANDA D Ot V72.84 02/04/2015 Ot V72.84 02/04/2015 Ot 154.3 02/04/2015 Ot 401.9 02/04/2015 Ot V58.69 02/04/2015 DIAZLAINE S WATER MAIN INSPECTOR Ot 154.3 02/04/2015 DIAZ LAINE S WATER MAIN INSPECTOR Ot 401.9 02/04/2015 DIAZ LAINE S WATER MAIN INSPECTOR Ot V58.69 02/04/2015 DIAZLAINE S WATER MAIN INSPECTOR Ot 154.3 02/04/2015 DIAZ, LAINE S WATER MAIN INSPECTOR Ot 571.8 02/04/2015 DIAZ, LAINE S WATER MAIN INSPECTOR Ot 154.3 02/04/2015 DIAZ, LAINE S WATER MAIN INSPECTOR Ot 401.9 02/04/2015 DIAZ, LAINE S WATER MAIN INSPECTOR Ot V58.69 02/04/2015 [facility] V72.84 02/04/2015 DIAZ LAINE S WATER MAIN INSPECTOR Ot 154.3 02/04/2015 DIAZLAINE S WATER MAIN INSPECTOR Ot 401.9 02/04/2015 DIAZ LAINE S WATER MAIN INSPECTOR Ot V58.69 02/04/2015 JOE LAINE S WATER MAIN INSPECTOR Ot 790.4 02/04/2015 JOE LAINE S WATER MAIN INSPECTOR Ot R74.0 02/04/2015 DIAZ LAINE S WATER MAIN INSPECTOR Ot V10.06 02/04/2015 DIAZ LAINE S WATER MAIN INSPECTOR Ot V67.1 02/04/2015 DIAZ LAINE S WATER MAIN INSPECTOR Ot V67.2 02/04/2015 DIAZ LAINE S WATER MAIN INSPECTOR Ot Z85.048 02/04/2015 VAUGHN FRANKEL N Ot 154.3 02/04/2015 VAUGHN FRANKEL N Ot 346.90 02/04/2015 VAUGHN FRANKEL N Ot 401.9 02/04/2015 VAUGHN FRANKEL N Ot V58.69 02/04/2015 VAUGHN FRANKEL N Ot V58.81 02/04/2015 Ot 722.52 02/04/2015 Ot 553.1 02/04/2015 Ot V72.63 02/04/2015 Ot V74.8 02/04/2015 NICKY FAIRCHILD DO Ot 240.9 02/04/2015 [facility] Ot V72.84 02/04/2015 Ot V72.84 02/04/2015 Ot 154.3 02/04/2015 Ot 401.9 02/04/2015 Ot V58.69 02/04/2015 LAINE DIAZ S WATER MAIN INSPECTOR Ot 154.3 02/04/2015 DIAZLAINE Millan S WATER MAIN INSPECTOR Ot 401.9 02/04/2015 DIAZLAINE Millan S WATER MAIN INSPECTOR Ot V58.69 02/04/2015 DIAZLAINE Millan S WATER MAIN INSPECTOR Ot 154.3 02/04/2015 DIAZLAINE Millan S WATER MAIN INSPECTOR Ot 571.8 02/04/2015 DIAZLAINE S WATER MAIN INSPECTOR Ot 154.3 02/04/2015 DIAZLAINE S WATER MAIN INSPECTOR Ot 401.9 02/04/2015 DIAZLAINE Millan S WATER MAIN INSPECTOR Ot V58.69 02/04/2015 [facility] YOLANDA Sylvester Ot V72.84 02/04/2015 LAINE DIAZ S WATER MAIN INSPECTOR Ot 154.3 02/04/2015 DIAZLAINE S WATER MAIN INSPECTOR Ot 401.9 02/04/2015 DIAZLAINE Millan S WATER MAIN INSPECTOR Ot V58.69 02/04/2015 DIAZLAINE Millan S WATER MAIN INSPECTOR Ot 790.4 02/04/2015 DIAZLAINE S WATER MAIN INSPECTOR Ot R74.0 02/04/2015 DIAZLAINE S WATER MAIN INSPECTOR Ot V10.06 02/04/2015 DIAZLAINE S WATER MAIN INSPECTOR Ot V67.1 02/04/2015 DIAZLAINE S WATER MAIN INSPECTOR Ot V67.2 02/04/2015 DIAZLAINE S WATER MAIN INSPECTOR Ot Z85.048 02/04/2015 MARLYS COLEKODAK N Ot 154.3 02/04/2015 VAUGHN FRANKEL N Ot 346.90 02/04/2015 MARLYSVAUGHN DRAPER N Ot 401.9 02/04/2015 VAUGHN FRANKEL N Ot V58.69 02/04/2015 VAUGHN FRANKEL N Ot V58.81 02/04/2015 NICKY FAIRCHILD DO S Ot 240.9 02/11/2015 LAINE DIAZ S WATER MAIN INSPECTOR Ot C21.0 02/14/2015 ANTONIETA KHAN, NICKY S Ot 240.9 02/27/2015 DIAZLAINE Millan S WATER MAIN INSPECTOR Ot C21.0 03/17/2015 VAUGHN FRANKEL N Ot 154.3 03/17/2015 VAUGHN FRANKEL N Ot 346.90 03/17/2015 VAUGHN FRANKEL N Ot 401.9 03/17/2015 VAUGHN FRANKEL N Ot V58.69 03/17/2015 VAUGHN FRANKEL N Ot V58.81 03/18/2015 DIAZLAINE Millan S WATER MAIN INSPECTOR Ot N50.3 03/31/2015 JOE LAINE S WATER MAIN INSPECTOR Ot Z08 03/31/2015 JOE LAINE S WATER MAIN INSPECTOR Ot Z85.048 03/31/2015 DIAZ LAINE S WATER MAIN INSPECTOR Ot Z92.21 03/31/2015 DIAZLAINE S WATER MAIN INSPECTOR Ot Z92.3 04/07/2015 DIAZLAINE S WATER MAIN INSPECTOR Ot 790.4 04/07/2015 JOE LAINE S WATER MAIN INSPECTOR Ot R74.0 04/07/2015 JOE LAINE S WATER MAIN INSPECTOR Ot V10.06 04/07/2015 JOE LAINE S WATER MAIN INSPECTOR Ot V67.1 04/07/2015 JOE LAINE S WATER MAIN INSPECTOR Ot V67.2 04/07/2015 DIAZ LAINE S WATER MAIN INSPECTOR Ot Z85.048 04/07/2015 DIAZ LAINE S WATER MAIN INSPECTOR Ot N50.3 04/15/2015 VAUGHN FRANKEL N Ot C21.0 04/15/2015 VAUGHN FRANKEL N Ot Z45.2 04/28/2015 VAUGHN FRANKEL N Ot C21.0 MALIGNANT NEOPLASM OF ANUS, UNSPECIFIED 04/28/2015 VAUGHN FRANKEL N Ot Z45.2 ENCOUNTER FOR ADJUSTMENT AND MANAGEMENT 05/19/2015 VAUGHN FRANKEL N Ot C21.0 05/19/2015 VAUGHN FRANKEL N Ot Z45.2 05/26/2015 Ot 722.52 05/26/2015 Ot 553.1 05/26/2015 Ot V72.63 05/26/2015 Ot V74.8 05/26/2015 NICKY FAIRCHILD DO Ot 240.9 05/26/2015 [facility] V72.84 05/26/2015 Ot V72.84 05/26/2015 Ot 154.3 05/26/2015 Ot 401.9 05/26/2015 Ot V58.69 05/26/2015 DIAZLAIEN Millan S WATER MAIN INSPECTOR Ot 154.3 05/26/2015 DIAZLAINE Millan S WATER MAIN INSPECTOR Ot 401.9 05/26/2015 DIAZLAINE Millan S WATER MAIN INSPECTOR Ot V58.69 05/26/2015 DIAZLAINE S WATER MAIN INSPECTOR Ot 154.3 05/26/2015 DIAZLAINE S WATER MAIN INSPECTOR Ot 571.8 05/26/2015 DIAZLAINE S WATER MAIN INSPECTOR Ot 154.3 05/26/2015 DIAZLAINE Millan S WATER MAIN INSPECTOR Ot 401.9 05/26/2015 DIAZLAINE Millan S WATER MAIN INSPECTOR Ot V58.69 05/26/2015 [facility] Sylvester Ot V72.84 05/26/2015 DIZALAINE Millan S WATER MAIN INSPECTOR Ot 154.3 05/26/2015 DIAZLAINE Millan S WATER MAIN INSPECTOR Ot 401.9 05/26/2015 DIAZLAINE Millan S WATER MAIN INSPECTOR Ot V58.69 05/26/2015 DIAZLAINE Millan S WATER MAIN INSPECTOR Ot 790.4 05/26/2015 DIAZLAINE S WATER MAIN INSPECTOR Ot R74.0 05/26/2015 DIAZLAINE Millan S WATER MAIN INSPECTOR Ot V10.06 05/26/2015 DIAZLAINE Millan S WATER MAIN INSPECTOR Ot V67.1 05/26/2015 DIAZLAINE S WATER MAIN INSPECTOR Ot V67.2 05/26/2015 DIAZLAINE S WATER MAIN INSPECTOR Ot Z85.048 05/26/2015 DIAZLAINE S WATER MAIN INSPECTOR Ot C21.0 05/26/2015 DIAZ, LAINE S WATER MAIN INSPECTOR Ot Z08 05/26/2015 DIAZ LAINE S WATER MAIN INSPECTOR Ot Z85.048 05/26/2015 DIAZLAINE S WATER MAIN INSPECTOR Ot Z92.21 05/26/2015 DIAZLAINE Millan WATER MAIN INSPECTOR Ot Z92.3 05/26/2015 LAINE DIAZ WATER MAIN INSPECTOR Ot N50.3 05/26/2015 VAUGHN FRANKEL Ot C21.0 05/26/2015 VAUGHN FRANKEL N Ot Z45.2 05/27/2015 VAUGHN FRANKEL N Ot C21.0 05/27/2015 VAUGHN FRANKEL N Ot Z45.2 07/24/2015 Ot 722.52 07/24/2015 Ot 553.1 07/24/2015 Ot V72.63 07/24/2015 Ot V74.8 07/24/2015 ANTONIETA KHAN NICKY S Ot 240.9 07/24/2015 [place] YOLANDA KHAN Ot V72.84 07/24/2015 Ot V72.84 07/24/2015 Ot 154.3 07/24/2015 Ot 401.9 07/24/2015 Ot V58.69 07/24/2015 JOE LAINE S WATER MAIN INSPECTOR Ot 154.3 07/24/2015 JOE LAINE S WATER MAIN INSPECTOR Ot 401.9 07/24/2015 DIAZLAINE S WATER MAIN INSPECTOR Ot V58.69 07/24/2015 DIAZLAINE S WATER MAIN INSPECTOR Ot 154.3 07/24/2015 JOELAINE S WATER MAIN INSPECTOR Ot 571.8 07/24/2015 DIAZLAINE S WATER MAIN INSPECTOR Ot 154.3 07/24/2015 DIAZLAINE S WATER MAIN INSPECTOR Ot 401.9 07/24/2015 JOE LAINE S WATER MAIN INSPECTOR Ot V58.69 07/24/2015 [place] YOLANDA KHAN Ot V72.84 07/24/2015 DIAZLAINE S WATER MAIN INSPECTOR Ot 154.3 07/24/2015 DIAZLAINE S WATER MAIN INSPECTOR Ot 401.9 07/24/2015 JOE LAINE S WATER MAIN INSPECTOR Ot V58.69 07/24/2015 JOE LAINE S WATER MAIN INSPECTOR Ot 790.4 07/24/2015 JOELAINE S WATER MAIN INSPECTOR Ot R74.0 07/24/2015 JOE LAINE S WATER MAIN INSPECTOR Ot V10.06 07/24/2015 JOE LAINE S WATER MAIN INSPECTOR Ot V67.1 07/24/2015 JOE LAINE S WATER MAIN INSPECTOR Ot V67.2 07/24/2015 LAINE DIAZ S WATER MAIN INSPECTOR Ot Z85.048 07/24/2015 DIAZLAINE Millan S WATER MAIN INSPECTOR Ot C21.0 07/24/2015 DIAZLAINE Millan S WATER MAIN INSPECTOR Ot Z08 07/24/2015 DIAZLAINE Millan S WATER MAIN INSPECTOR Ot Z85.048 07/24/2015 DIAZLAINE Millan S WATER MAIN INSPECTOR Ot Z92.21 07/24/2015 DIAZLAINE S WATER MAIN INSPECTOR Ot Z92.3 07/24/2015 DIAZLAINE Millan WATER MAIN INSPECTOR Ot N50.3 07/24/2015 MARLYS, COLEAN N Ot C21.0 07/24/2015 MARLYS, BOBAN N Ot R74.0 07/24/2015 MARLYS, BOBAN N Ot Z92.21 07/24/2015 MARLYS, BOBAN N Ot Z92.3 07/24/2015 DIAZLAINE Millan S WATER MAIN INSPECTOR Ot C21.0 07/24/2015 DIAZLAINE Millan S WATER MAIN INSPECTOR Ot Z92.21 07/24/2015 LAINE DIAZ S WATER MAIN INSPECTOR Ot Z92.3 07/25/2015 MARLYS, BOBAN N Ot C21.0 07/25/2015 MARLYS, BOBAN N Ot R74.0 07/25/2015 MARLYS, BOBAN N Ot Z92.21 07/25/2015 MARLYS, BOBAN N Ot Z92.3 07/25/2015 MARLYS, BOBAN N Ot C21.0 07/25/2015 MARLYS, BOBAN N Ot R74.0 07/25/2015 MARLYS, BOBAN N Ot Z92.21 07/25/2015 MARLYS, BOBAN N Ot Z92.3 07/25/2015 LAINE DIAZ S WATER MAIN INSPECTOR Ot C21.0 07/25/2015 DIAZLAINE Millan S WATER MAIN INSPECTOR Ot Z92.21 07/25/2015 DIAZLAINE Millan S WATER MAIN INSPECTOR Ot Z92.3 07/28/2015 DIAZLAINE Millan S WATER MAIN INSPECTOR Ot C21.1 07/28/2015 LAINE DIAZ WATER MAIN INSPECTOR Ot N50.3 08/20/2015 Ot 722.52 LUMB/ LUMBOSAC DISC DEGEN 08/20/2015 Ot 553.1 UMBILICAL HERNIA 08/20/2015 Ot V72.63 PRE- PROCEDURAL LABORATORY EXAMINATION 08/20/2015 Ot V74.8 SCREEN- BACTERIAL DIS NEC 08/20/2015 NICKY FAIRCHILD DO Ot 240.9 GOITER NOS 08/20/2015 YOLANDA VASQUEZ DO Ot V72.84 EXAM PRE-OPERATIVE NOS 08/20/2015 Ot V72.84 EXAM PRE- OPERATIVE NOS 08/20/2015 Ot 154.3 MALIGNANT RAGHAVENDRA ANUS NOS 08/20/2015 Ot 401.9 HYPERTENSION NOS 08/20/2015 Ot V58.69 OTH MED,LT, CURRENT USE 08/20/2015 LAINE DIAZ WATER MAIN INSPECTOR Ot 154.3 MALIGNANT RAGHAVENDRA ANUS NOS 08/20/2015 DIAZLAINE Millan WATER MAIN INSPECTOR Ot 401.9 HYPERTENSION NOS 08/20/2015 LAINE DIAZ WATER MAIN INSPECTOR Ot V58.69 OTH MED,LT,CURRENT USE 08/20/2015 LAINE DIAZ WATER MAIN INSPECTOR Ot 154.3 MALIGNANT RAGHAVENDRA ANUS NOS 08/20/2015 LAINE DIAZ WATER MAIN INSPECTOR Ot 571.8 CHRONIC LIVER DIS NEC 08/20/2015 LAINE DIAZ WATER MAIN INSPECTOR Ot 154.3 MALIGNANT RAGHAVENDRA ANUS NOS 08/20/2015 LAINE DIAZ WATER MAIN INSPECTOR Ot 401.9 HYPERTENSION NOS 08/20/2015 LAINE DIAZ WATER MAIN INSPECTOR Ot V58.69 OTH MED,LT,CURRENT USE 08/20/2015 YOLANDA VASQUEZ DO Ot V72.84 EXAM PRE-OPERATIVE NOS 08/20/2015 LAINE DIAZ WATER MAIN INSPECTOR Ot 154.3 MALIGNANT RAGHAVENDRA ANUS NOS 08/20/2015 LAINE DIAZ WATER MAIN INSPECTOR Ot 401.9 HYPERTENSION NOS 08/20/2015 LAINE DIAZ WATER MAIN INSPECTOR Ot V58.69 OTH MED,LT,CURRENT USE 08/20/2015 LAINE DIAZ WATER MAIN INSPECTOR Ot 790.4 ELEV TRANSAMINASE/LDH 08/20/2015 LAINE DIAZ WATER MAIN INSPECTOR Ot R74.0 NONSPEC ELEV OF LEVELS OF TRANSAMNS LA 08/20/2015 LAINE DIAZ WATER MAIN INSPECTOR Ot V10.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 08/20/2015 LAINE DIAZ WATER MAIN INSPECTOR Ot V67.1 RADIOTHERAPY FOLLOW-UP 08/20/2015 LAINE DIAZ WATER MAIN INSPECTOR Ot V67.2 CHEMOTHERAPY FOLLOW-UP 08/20/2015 LAINE DIAZ WATER MAIN INSPECTOR Ot 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, RECT 08/20/2015 LAINE DIAZ WATER MAIN INSPECTOR Ot C21.0 MALIGNANT NEOPLASM OF ANUS, UNSPECIFIED 08/20/2015 LAINE DIAZ WATER MAIN INSPECTOR Ot Z08 ENCNTR FOR FOLLOW-UP EXAM AFTER TRTMT FO 08/20/2015 LAINE DIAZ WATER MAIN INSPECTOR Ot 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, RECT 08/20/2015 LAINE DIAZ WATER MAIN INSPECTOR Ot Z92.21 PERSONAL HISTORY OF ANTINEOPLASTIC CHEMO 08/20/2015 DIAZLAINE Millan WATER MAIN INSPECTOR Ot Z92.3 PERSONAL HISTORY OF IRRADIATION 08/20/2015 LAINE DIAZ WATER MAIN INSPECTOR Ot N50.3 CYST OF EPIDIDYMIS 08/20/2015 VAUGHN FRANKEL Ot C21.0 MALIGNANT NEOPLASM OF ANUS, UNSPECIFIED 08/20/2015 VAUGHN FRANKEL Ot R74.0 NONSPEC ELEV OF LEVELS OF TRANSAMNS LA 08/20/2015 VAUGHN FRANKEL Ot Z92.21 PERSONAL HISTORY OF ANTINEOPLASTIC CHEMO 08/20/2015 VAUGHN FRANKEL Ot Z92.3 PERSONAL HISTORY OF IRRADIATION 08/20/2015 LAINE DIAZ WATER MAIN INSPECTOR Ot C21.1 MALIGNANT NEOPLASM OF ANAL CANAL 08/20/2015 LAINE DIAZ WATER MAIN INSPECTOR Ot N50.3 CYST OF EPIDIDYMIS 08/20/2015 DIAZLAINE Millan WATER MAIN INSPECTOR Ot C21.0 MALIGNANT NEOPLASM OF ANUS, UNSPECIFIED 08/20/2015 LAINE DIAZ WATER MAIN INSPECTOR Ot Z92.21 PERSONAL HISTORY OF ANTINEOPLASTIC CHEMO 08/20/2015 DIAZLAINE Millan WATER MAIN INSPECTOR Ot Z92.3 PERSONAL HISTORY OF IRRADIATION 08/21/2015 DIAZLAINE Millan WATER MAIN INSPECTOR Ot C21.1 MALIGNANT NEOPLASM OF ANAL CANAL [...] PERSONAL HISTORY OF IRRADIATION 08/28/2015 Ot 722.52 LUMB/ LUMBOSAC DISC DEGEN 08/28/2015 Ot 553.1 UMBILICAL HERNIA 08/28/2015 Ot V72.63 PRE- PROCEDURAL LABORATORY EXAMINATION 08/28/2015 Ot V74.8 SCREEN- BACTERIAL DIS NEC 08/28/2015 NICKY FAIRCHILD DO Ot 240.9 GOITER NOS 08/28/2015 YOLANDA VASQUEZ DO Ot V72.84 EXAM PRE-OPERATIVE NOS 08/28/2015 Ot V72.84 EXAM PRE- OPERATIVE NOS 08/28/2015 Ot 154.3 MALIGNANT RAGHAVENDRA ANUS NOS 08/28/2015 Ot 401.9 HYPERTENSION NOS 08/28/2015 Ot V58.69 OTH MED,LT, CURRENT USE 08/28/2015 DIAZLAINE Millan S WATER MAIN INSPECTOR Ot 154.3 MALIGNANT RAGHAVENDRA ANUS NOS 08/28/2015 DIAZLAINE Millan S WATER MAIN INSPECTOR Ot 401.9 HYPERTENSION NOS 08/28/2015 DIAZLAINE S WATER MAIN INSPECTOR Ot V58.69 OTH MED,LT,CURRENT USE 08/28/2015 DIAZIVYAH S WATER MAIN INSPECTOR Ot 154.3 MALIGNANT RAGHAVENDRA ANUS NOS 08/28/2015 DIAZ, HILAH S WATER MAIN INSPECTOR Ot 571.8 CHRONIC LIVER DIS NEC 08/28/2015 DIAZIVYAH S WATER MAIN INSPECTOR Ot 154.3 MALIGNANT RAGHAVENDRA ANUS NOS 08/28/2015 DIAZIVYAH S WATER MAIN INSPECTOR Ot 401.9 HYPERTENSION NOS 08/28/2015 DIAZLAINE S WATER MAIN INSPECTOR Ot V58.69 OTH MED,LT,CURRENT USE 08/28/2015 OYLANDA VASQUEZ DO Ot V72.84 EXAM PRE-OPERATIVE NOS 08/28/2015 DIAZLAINE Millan WATER MAIN INSPECTOR Ot 154.3 MALIGNANT RAGHAVENDRA ANUS NOS 08/28/2015 JOE LAINE Yana WATER MAIN INSPECTOR Ot 401.9 HYPERTENSION NOS 08/28/2015 LAINE DIAZ WATER MAIN INSPECTOR Ot V58.69 OTH MED,LT,CURRENT USE 08/28/2015 DIAZLAINE Millan WATER MAIN INSPECTOR Ot 790.4 ELEV TRANSAMINASE/LDH 08/28/2015 LAINE DIAZ WATER MAIN INSPECTOR Ot R74.0 NONSPEC ELEV OF LEVELS OF TRANSAMNS LA 08/28/2015 JOE LAINE Millan WATER MAIN INSPECTOR Ot V10.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 08/28/2015 IVY DIAZREKHA Yana WATER MAIN INSPECTOR Ot V67.1 RADIOTHERAPY FOLLOW-UP 08/28/2015 JOE LAINE Millan WATER MAIN INSPECTOR Ot V67.2 CHEMOTHERAPY FOLLOW-UP 08/28/2015 JOE LAINE Millan WATER MAIN INSPECTOR Ot 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, RECT 08/28/2015 IVY DIAZREKHA Millan WATER MAIN INSPECTOR Ot C21.0 MALIGNANT NEOPLASM OF ANUS, UNSPECIFIED 08/28/2015 JOE LAINE Millan WATER MAIN INSPECTOR Ot Z08 ENCNTR FOR FOLLOW-UP EXAM AFTER TRTMT FO 08/28/2015 JOE LAINE Millan WATER MAIN INSPECTOR Ot 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, RECT 08/28/2015 JOE LAINE Millan WATER MAIN INSPECTOR Ot Z92.21 PERSONAL HISTORY OF ANTINEOPLASTIC CHEMO 08/28/2015 IVY DIAZREKHA Yana WATER MAIN INSPECTOR Ot Z92.3 PERSONAL HISTORY OF IRRADIATION 08/28/2015 IVY DIAZREKHA Yana WATER MAIN INSPECTOR Ot N50.3 CYST OF EPIDIDYMIS 08/28/2015 IVY DIAZREKHA Yana WATER MAIN INSPECTOR Ot C21.1 MALIGNANT NEOPLASM OF ANAL CANAL 08/28/2015 IVY DIAZREKHA Yana WATER MAIN INSPECTOR Ot N50.3 CYST OF EPIDIDYMIS 08/28/2015 IVY DIAZREKHA Yana WATER MAIN INSPECTOR Ot C21.0 MALIGNANT NEOPLASM OF ANUS, UNSPECIFIED 08/28/2015 IVY DIAZREKHA Yana WATER MAIN INSPECTOR Ot Z92.21 PERSONAL HISTORY OF ANTINEOPLASTIC CHEMO 08/28/2015 IVY DIAZREKHA Yana WATER MAIN INSPECTOR Ot Z92.3 PERSONAL HISTORY OF IRRADIATION 08/28/2015 DIAZ LAINE Millan WATER MAIN INSPECTOR Ot C21.1 MALIGNANT NEOPLASM OF ANAL CANAL 08/28/2015 VAUGHN FRANKEL Yousif Ot C21.0 MALIGNANT NEOPLASM OF ANUS, UNSPECIFIED 08/28/2015 VAUGHN FRANKEL Yousif Ot R74.0 NONSPEC ELEV OF LEVELS OF TRANSAMNS [place] 08/28/2015 VAUGHN FRANKEL Yousif Ot Z92.21 PERSONAL HISTORY OF ANTINEOPLASTIC CHEMO 08/28/2015 MARLYS, VAUGHN Dodd Ot Z92.3 PERSONAL HISTORY OF IRRADIATION 08/28/2015 DIAZLAINE WATER MAIN INSPECTOR Ot C21.1 MALIGNANT NEOPLASM OF ANAL CANAL 08/28/2015 LAINE DIAZ WATER MAIN INSPECTOR Ot N50.3 CYST OF EPIDIDYMIS 08/28/2015 LAINE DIAZ WATER MAIN INSPECTOR Ot C21.0 MALIGNANT NEOPLASM OF ANUS, UNSPECIFIED 08/28/2015 LAINE DIAZ WATER MAIN INSPECTOR Ot Z92.21 PERSONAL HISTORY OF ANTINEOPLASTIC CHEMO 08/28/2015 LAINE DIAZ WATER MAIN INSPECTOR Ot Z92.3 PERSONAL HISTORY OF IRRADIATION 08/28/2015 LAINE DIAZ WATER MAIN INSPECTOR Ot C21.1 MALIGNANT NEOPLASM OF ANAL CANAL 08/28/2015 IVY DIAZREKHA Yana WATER MAIN INSPECTOR Ot N50.3 CYST OF EPIDIDYMIS 08/28/2015 LAINE DIAZ WATER MAIN INSPECTOR Ot C21.1 MALIGNANT NEOPLASM OF ANAL CANAL 08/29/2015 YOLANDA VASQUEZ DO Ot C21.1 MALIGNANT NEOPLASM OF ANAL CANAL 08/30/2015 MARLYS [place] Yousif Ot C21.0 MALIGNANT NEOPLASM OF ANUS, UNSPECIFIED 08/30/2015 VAUGHN FRANKEL Yousif Ot R74.0 NONSPEC ELEV OF LEVELS OF TRANSAMNS [place] 08/30/2015 VAUGHN FRANKEL Yousif Ot Z45.2 ENCOUNTER FOR ADJUSTMENT AND MANAGEMENT 08/30/2015 MARLYS, VAUGHN Dodd Ot Z92.21 PERSONAL HISTORY OF ANTINEOPLASTIC CHEMO 08/30/2015 VAUGHN FRANKEL Ot Z92.3 PERSONAL HISTORY OF IRRADIATION 09/02/2015 YOLANDA VASQUEZ DO Ot C21.1 MALIGNANT NEOPLASM OF ANAL CANAL 09/04/2015 YOLANDA VASQUEZ DO Ot C21.0 MALIGNANT NEOPLASM OF ANUS, UNSPECIFIED 09/04/2015 YOLANDA VASQUEZ DO Ot Z01.818 ENCOUNTER FOR OTHER PREPROCEDURAL EXAMIN 09/04/2015 V[place] YOLANDA KHAN Ot Z08 ENCNTR FOR FOLLOW-UP EXAM AFTER TRTMT FO 09/04/2015 YOLANDA VASQUEZ DO Ot 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, RECT 09/09/2015 [place] YOLANDA KHAN Ot C21.0 MALIGNANT NEOPLASM OF ANUS, UNSPECIFIED 09/09/2015 [place] YOLANDA KHAN Ot Z01.818 ENCOUNTER FOR OTHER PREPROCEDURAL EXAMIN 09/09/2015 LAINE DIAZ WATER MAIN INSPECTOR Ot C21.1 MALIGNANT NEOPLASM OF ANAL CANAL 09/09/2015 LAINE DIAZ WATER MAIN INSPECTOR Ot N50.3 CYST OF EPIDIDYMIS 09/09/2015 LAINE DIAZ WATER MAIN INSPECTOR Ot C21.1 MALIGNANT NEOPLASM OF ANAL CANAL 09/11/2015 LAINE DIAZ WATER MAIN INSPECTOR Ot C21.0 MALIGNANT NEOPLASM OF ANUS, UNSPECIFIED 09/11/2015 LAINE DIAZ WATER MAIN INSPECTOR Ot Z92.21 PERSONAL HISTORY OF ANTINEOPLASTIC CHEMO 09/11/2015 LAINE DIAZ WATER MAIN INSPECTOR Ot Z92.3 PERSONAL HISTORY OF IRRADIATION 09/13/2015 LAINE DIAZ WATER MAIN INSPECTOR Ot C21.0 MALIGNANT NEOPLASM OF ANUS, UNSPECIFIED 09/13/2015 LAINE DIAZ WATER MAIN INSPECTOR Ot Z92.21 PERSONAL HISTORY OF ANTINEOPLASTIC CHEMO 09/13/2015 LAINE DIAZ WATER MAIN INSPECTOR Ot Z92.3 PERSONAL HISTORY OF IRRADIATION 11/18/2015 LAINE DIAZ WATER MAIN INSPECTOR Ot C21.0 MALIGNANT NEOPLASM OF ANUS, UNSPECIFIED 11/18/2015 LAINE DIAZ WATER MAIN INSPECTOR Ot Z92.21 PERSONAL HISTORY OF ANTINEOPLASTIC CHEMO 11/18/2015 LAINE DIAZ WATER MAIN INSPECTOR Ot Z92.3 PERSONAL HISTORY OF IRRADIATION 11/25/2015 LAINE DIAZ WATER MAIN INSPECTOR Ot Z08 ENCNTR FOR FOLLOW-UP EXAM AFTER TRTMT FO 11/25/2015 LAINE DIAZ WATER MAIN INSPECTOR Ot 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, RECT 12/15/2015 LAINE DIAZ WATER MAIN INSPECTOR Ot Z08 ENCNTR FOR FOLLOW-UP EXAM AFTER TRTMT FO 12/15/2015 LAINE DIAZ WATER MAIN INSPECTOR Ot 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, RECT 02/19/2016 MARLYSVAUGHN DRAPER Yousif Ot C21.0 MALIGNANT NEOPLASM OF ANUS, UNSPECIFIED 02/19/2016 VAUGHN FRANKEL Yousif Ot R74.0 NONSPEC ELEV OF LEVELS OF TRANSAMNS LA 02/19/2016 VAUGHN FRANKEL N Ot Z92.21 PERSONAL HISTORY OF ANTINEOPLASTIC CHEMO 02/19/2016 VAUGHN FRANKEL N Ot Z92.3 PERSONAL HISTORY OF IRRADIATION 02/24/2016 VAUGHN FRANKEL Yousif Ot C21.0 MALIGNANT NEOPLASM OF ANUS, UNSPECIFIED 02/24/2016 MARLYSVAUGHN DRAPER N Ot R74.0 NONSPEC ELEV OF LEVELS OF TRANSAMNS LA 02/24/2016 VAUGHN FRANKEL Yousif Ot Z92.21 PERSONAL HISTORY OF ANTINEOPLASTIC CHEMO 02/24/2016 VAUGHN FRANKEL Yousif Ot Z92.3 PERSONAL HISTORY OF IRRADIATION 03/04/2016 ORENDER DO, NICKY S Ot E29.1 TESTICULAR HYPOFUNCTION 03/04/2016 ORENDER DO, NICKY S Ot R53.83 OTHER FATIGUE 04/01/2016 ORENDER DO, NICKY S Ot E29.1 TESTICULAR HYPOFUNCTION 04/01/2016 ORENDER DO, NICKY S Ot R53.83 OTHER FATIGUE 04/07/2016 VAUGHN FRANKEL Yousif Ot C21.0 MALIGNANT NEOPLASM OF ANUS, UNSPECIFIED 04/07/2016 VAUGHN FRANKEL Yousif Ot R74.0 NONSPEC ELEV OF LEVELS OF TRANSAMNS LA 04/07/2016 VAUGHN FRANKEL N Ot Z92.21 PERSONAL HISTORY OF ANTINEOPLASTIC CHEMO 04/07/2016 VAUGHN FRANKEL N Ot Z92.3 PERSONAL HISTORY OF IRRADIATION 05/23/2016 VAUGHN FRANKEL N Ot C21.0 MALIGNANT NEOPLASM OF ANUS, UNSPECIFIED 05/23/2016 MARLYS COLEKODAK N Ot R74.0 NONSPEC ELEV OF LEVELS OF TRANSAMNS LA 05/23/2016 VAUGHN FRANKEL N Ot Z92.21 PERSONAL HISTORY OF ANTINEOPLASTIC CHEMO 05/23/2016 MARLYS COLEKODAK N Ot Z92.3 PERSONAL HISTORY OF IRRADIATION 05/26/2016 MARLYS COLEKODAK N Ot C21.0 MALIGNANT NEOPLASM OF ANUS, UNSPECIFIED 05/26/2016 VAUGHN FRANKEL N Ot R74.0 NONSPEC ELEV OF LEVELS OF TRANSAMNS LA 05/26/2016 VAUGHN FRANKEL N Ot Z92.21 PERSONAL HISTORY OF ANTINEOPLASTIC CHEMO 05/26/2016 VAUGHN FRANKEL N Ot Z92.3 PERSONAL HISTORY OF IRRADIATION 05/28/2016 NICKY FAIRCHILD DO S Ot E29.1 TESTICULAR HYPOFUNCTION 05/28/2016 NICKY FAIRCHILD DO S Ot R53.83 OTHER FATIGUE 05/28/2016 VAUGHN FRANKEL N Ot C21.0 MALIGNANT NEOPLASM OF ANUS, UNSPECIFIED 05/28/2016 VAUGHN FRANKEL N Ot R74.0 NONSPEC ELEV OF LEVELS OF TRANSAMNS LA 05/28/2016 VAUGHN FRANKEL N Ot Z92.21 PERSONAL HISTORY OF ANTINEOPLASTIC CHEMO 05/28/2016 VAUGHN FRANKEL N Ot Z92.3 PERSONAL HISTORY OF IRRADIATION 07/08/2016 VAUGHN FRANKEL N Ot C21.0 MALIGNANT NEOPLASM OF ANUS, UNSPECIFIED 07/08/2016 VAUGHN FRANKEL N Ot R74.0 NONSPEC ELEV OF LEVELS OF TRANSAMNS LA 07/08/2016 VAUGHN FRANKEL N Ot Z92.21 PERSONAL HISTORY OF ANTINEOPLASTIC CHEMO 07/08/2016 VAUGHN FRANKEL N Ot Z92.3 PERSONAL HISTORY OF IRRADIATION 07/29/2016 VAUGHN FRANKEL N Ot C21.0 MALIGNANT NEOPLASM OF ANUS, UNSPECIFIED 07/29/2016 VAUGHN FRANKEL N Ot R74.0 NONSPEC ELEV OF LEVELS OF TRANSAMNS LA 07/29/2016 VAUGHN FRANKEL N Ot Z92.21 PERSONAL HISTORY OF ANTINEOPLASTIC CHEMO 07/29/2016 VAUGHN FRANKEL N Ot Z92.3 PERSONAL HISTORY OF IRRADIATION 08/23/2016 VAUGHN FRANKEL N Ot C21.0 MALIGNANT NEOPLASM OF ANUS, UNSPECIFIED 08/23/2016 MARLYS COLEKODAK N Ot R74.0 NONSPEC ELEV OF LEVELS OF TRANSAMNS LA 08/23/2016 VAUGHN FRANKEL N Ot Z92.21 PERSONAL HISTORY OF ANTINEOPLASTIC CHEMO 08/23/2016 MARLYS COLEKODAK N Ot Z92.3 PERSONAL HISTORY OF IRRADIATION 08/24/2016 MARLYS COLEKODAK N Ot C21.0 MALIGNANT NEOPLASM OF ANUS, UNSPECIFIED 08/24/2016 VAUGHN FRANKEL Ot R74.0 NONSPEC ELEV OF [...] PERSONAL HISTORY OF ANTINEOPLASTIC CHEMO 08/25/2016 VAUGHN FRAKNEL Ot Z92.3 PERSONAL HISTORY OF IRRADIATION 09/10/2016 LAINE DIAZ WATER MAIN INSPECTOR Ot C21.1 MALIGNANT NEOPLASM OF ANAL CANAL 09/10/2016 LAINE DIAZ WATER MAIN INSPECTOR Ot K76.0 FATTY (CHANGE OF) LIVER, NOT ELSEWHERE C 09/20/2016 NYANDER DOTANANICKY S Ot E29.1 TESTICULAR HYPOFUNCTION 09/21/2016 DIAZLAINE Millan S WATER MAIN INSPECTOR Ot C21.1 MALIGNANT NEOPLASM OF ANAL CANAL 09/21/2016 DIAZLAINE Millan S WATER MAIN INSPECTOR Ot K76.0 FATTY (CHANGE OF) LIVER, NOT ELSEWHERE C 09/21/2016 J CARLOSER ARMAND KHANLINE S Ot E29.1 TESTICULAR HYPOFUNCTION 09/29/2016 DIAZLAINE Millan S WATER MAIN INSPECTOR Ot C21.1 MALIGNANT NEOPLASM OF ANAL CANAL 09/29/2016 DIAZLAINE Millan WATER MAIN INSPECTOR Ot K76.0 FATTY (CHANGE OF) LIVER, NOT ELSEWHERE C 09/29/2016 J CARLOSER DO NICKY S Ot E29.1 TESTICULAR HYPOFUNCTION 11/24/2016 VAUGHN FRANKEL Ot C21.0 MALIGNANT NEOPLASM OF ANUS, UNSPECIFIED 11/24/2016 VAUGHN FRANKEL Ot R74.0 NONSPEC ELEV OF LEVELS OF TRANSAMNS LA 11/24/2016 VAUGHN FRANKEL Ot Z92.21 PERSONAL HISTORY OF ANTINEOPLASTIC CHEMO 11/24/2016 VAUGHN FRANKEL Ot Z92.3 PERSONAL HISTORY OF IRRADIATION 11/25/2016 NYANDER TANA KHANNICKY S Ot E29.1 TESTICULAR HYPOFUNCTION 11/25/2016 NICKY FAIRCHILD DO Ot R53.83 OTHER FATIGUE 11/25/2016 LAINE DIAZ WATER MAIN INSPECTOR Ot C21.1 MALIGNANT NEOPLASM OF ANAL CANAL 11/25/2016 LAINE DIAZ WATER MAIN INSPECTOR Ot K76.0 FATTY (CHANGE OF) LIVER, NOT ELSEWHERE C 11/25/2016 VAUGHN FRANKEL N Ot C21.0 MALIGNANT NEOPLASM OF ANUS, UNSPECIFIED 11/25/2016 VAUGHN FRANKEL N Ot R74.0 NONSPEC ELEV OF LEVELS OF TRANSAMNS LA 11/25/2016 VAUGHN FRANKEL N Ot Z92.21 PERSONAL HISTORY OF ANTINEOPLASTIC CHEMO 11/25/2016 MARLYSVAUGHN DRAPER N Ot Z92.3 PERSONAL HISTORY OF IRRADIATION 11/25/2016 NICKY FAIRCHILD DO Ot E29.1 TESTICULAR HYPOFUNCTION 11/25/2016 VAUGHN FRANKEL N Ot C21.0 MALIGNANT NEOPLASM OF ANUS, UNSPECIFIED 11/25/2016 VAUGHN FRANKEL N Ot R74.0 NONSPEC ELEV OF LEVELS OF TRANSAMNS LA 11/25/2016 VAUGHN FRANKEL N Ot Z92.21 PERSONAL HISTORY OF ANTINEOPLASTIC CHEMO 11/25/2016 VAUGHN FRANKEL N Ot Z92.3 PERSONAL HISTORY OF IRRADIATION 11/26/2016 MARLYSVAUGHN DRAPER N Ot C21.0 MALIGNANT NEOPLASM OF ANUS, UNSPECIFIED 11/26/2016 VAUGHN FRANKEL N Ot R74.0 NONSPEC ELEV OF LEVELS OF TRANSAMNS LA 11/26/2016 VAUGHN FRANKEL N Ot Z92.21 PERSONAL HISTORY OF ANTINEOPLASTIC CHEMO 11/26/2016 VAUGHN FRANKEL N Ot Z92.3 PERSONAL HISTORY OF IRRADIATION 12/01/2016 VAUGHN FRANKEL N Ot C21.0 MALIGNANT NEOPLASM OF ANUS, UNSPECIFIED 12/01/2016 MARLYSVAUGHN DRAPER N Ot R74.0 NONSPEC ELEV OF LEVELS OF TRANSAMNS LA 12/01/2016 VAUGHN FRANKEL N Ot Z92.21 PERSONAL HISTORY OF ANTINEOPLASTIC CHEMO 12/01/2016 MARLYS COLEKODAK N Ot Z92.3 PERSONAL HISTORY OF IRRADIATION 01/15/2017 MARLYSVAUGHN DRAPER N Ot C21.0 MALIGNANT NEOPLASM OF ANUS, UNSPECIFIED 01/15/2017 MARLYS COLEKODAK N Ot R74.0 NONSPEC ELEV OF LEVELS OF TRANSAMNS LA 01/15/2017 VAUGHN FRANKEL Ot Z92.21 PERSONAL HISTORY OF ANTINEOPLASTIC CHEMO 01/15/2017 VAUGHN FRANKEL Yousif Ot Z92.3 PERSONAL HISTORY OF IRRADIATION 02/02/2017 VAUGHN FRANKEL Yousif Ot C21.0 MALIGNANT NEOPLASM OF ANUS, UNSPECIFIED 02/02/2017 VAUGHN FRANKEL Yousif Ot R74.0 NONSPEC ELEV OF LEVELS OF TRANSAMNS LA 02/02/2017 VAUGHN FRANKEL Yousif Ot Z92.21 PERSONAL HISTORY OF ANTINEOPLASTIC CHEMO 02/02/2017 VAUGHN FRANKEL Yousif Ot Z92.3 PERSONAL HISTORY OF IRRADIATION 02/08/2017 YOLANDA VASQUEZ DO Ot K62.5 HEMORRHAGE OF ANUS AND RECTUM 02/08/2017 YOLANDA VASQUEZ DO Ot Z01.818 ENCOUNTER FOR OTHER PREPROCEDURAL EXAMIN 02/08/2017 YOLANDA VASQUEZ DO Ot 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, RECT 02/14/2017 NICKY FAIRCHILD DO Ot E29.1 TESTICULAR HYPOFUNCTION 02/14/2017 NICKY FAIRCHILD DO Ot R53.83 OTHER FATIGUE 02/14/2017 LAINE DIAZ Ot C21.1 MALIGNANT NEOPLASM OF ANAL CANAL 02/14/2017 LAINE DIAZ Ot K76.0 FATTY (CHANGE OF) LIVER, NOT ELSEWHERE C 02/14/2017 NICKY FAIRCHILD DO Ot E29.1 TESTICULAR HYPOFUNCTION 02/14/2017 VAUGHN FRANKEL Yousif Ot C21.0 MALIGNANT NEOPLASM OF ANUS, UNSPECIFIED 02/14/2017 VAUGHN FRANKEL Yousif Ot R74.0 NONSPEC ELEV OF LEVELS OF TRANSAMNS LA 02/14/2017 VAUGHN FRANKEL Yousif Ot Z92.21 PERSONAL HISTORY OF ANTINEOPLASTIC CHEMO 02/14/2017 MARLYS, COLEKODAK Yousif Ot Z92.3 PERSONAL HISTORY OF IRRADIATION 02/15/2017 YOLANDA VASQUEZ DO Ot K62.5 HEMORRHAGE OF ANUS AND RECTUM 02/15/2017 YOLANDA VASQUEZ DO Ot K63.9 DISEASE OF INTESTINE, UNSPECIFIED 02/15/2017 YOLANDA VASQUEZ DO Ot 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, RECT 02/26/2017 YOLANDA VASQUEZ DO Ot K62.5 HEMORRHAGE OF ANUS AND RECTUM 02/26/2017 YOLANDA VASQUEZ DO Ot K63.9 DISEASE OF INTESTINE, UNSPECIFIED 02/26/2017 YOLANDA VASQUEZ DO Ot 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, RECT 03/24/2017 NICKY FAIRCHILD DO Ot E29.1 TESTICULAR HYPOFUNCTION 03/24/2017 ARMAND FAIRCHILD DOLINE Yana Ot R53.83 OTHER FATIGUE 03/24/2017 DIAZLAINE WATER MAIN INSPECTOR Ot C21.1 MALIGNANT NEOPLASM OF ANAL CANAL 03/24/2017 LAINE DIAZ WATER MAIN INSPECTOR Ot K76.0 FATTY (CHANGE OF) LIVER, NOT ELSEWHERE C 03/24/2017 NICKY FAIRCHILD DO Ot E29.1 TESTICULAR HYPOFUNCTION 03/25/2017 VAUGHN FRANKEL Yousif Ot C21.1 MALIGNANT NEOPLASM OF ANAL CANAL 03/25/2017 VAUGHN FRANKEL Yousif Ot E66.01 MORBID (SEVERE) OBESITY DUE TO EXCESS CA 03/25/2017 VAUGHN FRANKEL Ot K76.0 FATTY (CHANGE OF) LIVER, NOT ELSEWHERE C 03/25/2017 VAUGHN FRANKEL Yousif Ot R74.0 NONSPEC ELEV OF LEVELS OF TRANSAMNS LA 03/25/2017 VAUGHN FRANKEL Yousif Ot Z68.42 BODY MASS INDEX (BMI) 45.0-49.9, ADULT 03/25/2017 VAUGHN FRANKEL Yousif Ot Z92.21 PERSONAL HISTORY OF ANTINEOPLASTIC CHEMO 03/25/2017 VAUGHN FRANKEL Yousif Ot Z92.3 PERSONAL HISTORY OF IRRADIATION 2017 VAUGHN FRANKEL Yousif Ot C21.1 MALIGNANT NEOPLASM OF ANAL CANAL 2017 VAUGHN FRANKEL Yousif Ot E66.01 MORBID (SEVERE) OBESITY DUE TO EXCESS CA 2017 VAUGHN FRANKEL Yousif Ot K76.0 FATTY (CHANGE OF) LIVER, NOT ELSEWHERE C 2017 VAUGHN FRANKEL Yousif Ot R74.0 NONSPEC ELEV OF LEVELS OF TRANSAMNS LA 2017 AVUGHN FRANKEL Yousif Ot Z68.42 BODY MASS INDEX (BMI) 45.0-49.9, ADULT 2017 VAUGHN FRANKEL Ot Z92.21 PERSONAL HISTORY OF ANTINEOPLASTIC CHEMO 2017 VAUGHN FRANKEL Ot Z92.3 PERSONAL HISTORY OF IRRADIATION 06/23/2017 VAUGHN FRANKEL Ot C21.1 MALIGNANT NEOPLASM OF ANAL CANAL 06/23/2017 VAUGHN FRANKEL Ot E66.01 MORBID (SEVERE) OBESITY DUE TO EXCESS CA 06/23/2017 VAUGHN FRANKEL Ot K76.0 FATTY (CHANGE OF) LIVER, NOT ELSEWHERE C 06/23/2017 VAUGHN FRANKEL Ot R74.0 NONSPEC ELEV OF LEVELS OF TRANSAMNS LA 06/23/2017 VAUGHN FRANKEL Ot Z68.42 BODY MASS INDEX (BMI) 45.0-49.9, ADULT 06/23/2017 VAUGHN FRANKEL Ot Z92.21 PERSONAL HISTORY OF ANTINEOPLASTIC CHEMO 06/23/2017 VAUGHN FRANKEL Ot Z92.3 PERSONAL HISTORY OF IRRADIATION 06/29/2017 VAUGHN FRANKEL Ot C21.1 MALIGNANT NEOPLASM OF ANAL CANAL 06/29/2017 VAUGHN FRANKEL Ot E66.01 MORBID (SEVERE) OBESITY DUE TO EXCESS CA 06/29/2017 VAUGHN FRANKEL Ot K76.0 FATTY (CHANGE OF) LIVER, NOT ELSEWHERE C 06/29/2017 VAUGHN FRANKEL Ot R74.0 NONSPEC ELEV OF LEVELS OF TRANSAMNS LA 06/29/2017 VAUGHN FRANKEL Ot Z68.42 BODY MASS INDEX (BMI) 45.0-49.9, ADULT 06/29/2017 VAUGHN FRANKEL Ot Z92.21 PERSONAL HISTORY OF ANTINEOPLASTIC CHEMO 06/29/2017 VAUGHN FRANKEL Ot Z92.3 PERSONAL HISTORY OF IRRADIATION 08/12/2017 YOLANDA VASQUEZ DO Ot K62.5 HEMORRHAGE OF ANUS AND RECTUM 08/12/2017 YOLANDA VASQUEZ DO Ot Z01.818 ENCOUNTER FOR OTHER PREPROCEDURAL EXAMIN 08/12/2017 YOLANDA VASQUEZ DO Ot 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, RECT 08/15/2017 YOLANDA VASQUEZ DO Ot K62.5 HEMORRHAGE OF ANUS AND RECTUM 08/15/2017 YOLANDA VASQUEZ DO Ot Z01.818 ENCOUNTER FOR OTHER PREPROCEDURAL EXAMIN 08/15/2017 OYLANDA VASQUEZ DO Ot 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, RECT 08/15/2017 YOLANDA VASQUEZ DO Ot K62.5 HEMORRHAGE OF ANUS AND RECTUM 08/15/2017 YOLANDA VASQUEZ DO Ot Z01.818 ENCOUNTER FOR OTHER PREPROCEDURAL EXAMIN 08/15/2017 YOLANDA VASQUEZ DO Ot 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, RECT 08/15/2017 YOLANDA VASQUEZ DO Ot K62.5 HEMORRHAGE OF ANUS AND RECTUM 08/15/2017 YOLANDA VASQUEZ DO Ot Z01.818 ENCOUNTER FOR OTHER PREPROCEDURAL EXAMIN 08/15/2017 YOLANDA VASQUEZ DO Ot 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, RECT 08/16/2017 YOLANDA VASQUEZ DO Ot K62.5 HEMORRHAGE OF ANUS AND RECTUM 08/16/2017 YOLANDA VASQUEZ DO Ot Z01.818 ENCOUNTER FOR OTHER PREPROCEDURAL EXAMIN 08/16/2017 YOLANDA VASQUEZ DO, Ot 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, RECT 08/16/2017 YOLANDA VASQUEZ DO Ot E66.01 MORBID (SEVERE) OBESITY DUE TO EXCESS CA 08/16/2017 YOLANDA VASQUEZ DO Ot E78.00 PURE HYPERCHOLESTEROLEMIA, UNSPECIFIED 08/16/2017 YOLANDA VASQUEZ DO Ot G47.33 OBSTRUCTIVE SLEEP APNEA (ADULT) (PEDIATR 08/16/2017 YOLANDA VASQUEZ DO Ot I10 ESSENTIAL (PRIMARY) HYPERTENSION 08/16/2017 YOLANDA VASQUEZ DO Ot K21.9 GASTRO-ESOPHAGEAL REFLUX DISEASE WITHOUT 08/16/2017 YOLANDA VASQUEZ DO Ot K92.1 MELENA 08/16/2017 YOLANDA VASQUEZ DO Ot Z68.42 BODY MASS INDEX (BMI) 45.0-49.9, ADULT 08/16/2017 YOLANDA VASQUEZ DO Ot Z79.899 OTHER GROUP HOME (CURRENT) DRUG THERAPY 08/16/2017 YOLANDA VASQUEZ DO, Ot 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, RECT 08/17/2017 VASQUEZ DOYOLANDA D Ot E66.01 MORBID (SEVERE) OBESITY DUE TO EXCESS CA 08/17/2017 VASQUEZ DOYOLANDA D Ot E78.00 PURE HYPERCHOLESTEROLEMIA, UNSPECIFIED 08/17/2017 VASQUEZ DOFRACISCOTT D Ot G47.33 OBSTRUCTIVE SLEEP APNEA (ADULT) (PEDIATR 08/17/2017 VASQUEZ DOFRACISCOTT D Ot I10 ESSENTIAL (PRIMARY) HYPERTENSION 08/17/2017 [place] DOYOLANDA D Ot K21.9 GASTRO-ESOPHAGEAL REFLUX DISEASE WITHOUT 08/17/2017 VASQUEZ DOYOLANDA D Ot K92.1 MELENA [facility] BODY MASS INDEX (BMI) 45.0-49.9, ADULT 08/17/2017 [facility] Ot Z79.899 OTHER GROUP HOME (CURRENT) DRUG THERAPY 08/17/2017 [facility] Ot 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, RECT 09/23/2017 MARLYSVAUGHN Ot C21.1 MALIGNANT NEOPLASM OF ANAL CANAL 09/23/2017 VAUGHN FRANKEL Ot E66.01 MORBID (SEVERE) OBESITY DUE TO EXCESS CA 09/23/2017 VAUGHN FRANKEL Ot K76.0 FATTY (CHANGE OF) LIVER, NOT ELSEWHERE C 09/23/2017 MARLYSVAUGHN Ot R74.0 NONSPEC ELEV OF LEVELS OF TRANSAMNS LA 09/23/2017 MARLYSVAUGHN Ot Z68.42 BODY MASS INDEX (BMI) 45.0-49.9, ADULT 09/23/2017 VAUGHN FRANKEL Ot Z92.21 PERSONAL HISTORY OF ANTINEOPLASTIC CHEMO 09/23/2017 VAUGHN FRANKEL Ot Z92.3 PERSONAL HISTORY OF IRRADIATION 10/27/2017 VAUGHN FRANKEL Ot C21.1 MALIGNANT NEOPLASM OF ANAL CANAL 10/27/2017 VAUGHN FRANKEL Ot E66.01 MORBID (SEVERE) OBESITY DUE TO EXCESS CA 10/27/2017 MARLYSVAUGHN Ot K76.0 FATTY (CHANGE OF) LIVER, NOT ELSEWHERE C 10/27/2017 VAUGHN FRANKEL Ot R74.0 NONSPEC ELEV OF LEVELS OF TRANSAMNS LA 10/27/2017 VAUGHN FRANKEL Ot Z68.42 BODY MASS INDEX (BMI) 45.0-49.9, ADULT 10/27/2017 VAUGHN FRANKEL Ot Z92.21 PERSONAL HISTORY OF ANTINEOPLASTIC CHEMO 10/27/2017 VAUGHN FRANKEL Ot Z92.3 PERSONAL HISTORY OF IRRADIATION 12/21/2017 VAUGHN FRANKEL Ot C21.1 MALIGNANT NEOPLASM OF ANAL CANAL 12/21/2017 VAUGHN FRANKEL Ot E66.01 MORBID (SEVERE) OBESITY DUE TO EXCESS CA 12/21/2017 VAUGHN FRANKEL Ot K76.0 FATTY (CHANGE OF) LIVER, NOT ELSEWHERE C 12/21/2017 VAUGHN FRANKEL Ot R74.0 NONSPEC ELEV OF LEVELS OF TRANSAMNS LA 12/21/2017 VAUGHN FRANKEL Ot Z68.42 BODY MASS INDEX (BMI) 45.0-49.9, ADULT 12/21/2017 VAUGHN FRANKEL N Ot Z92.21 PERSONAL HISTORY OF ANTINEOPLASTIC CHEMO 12/21/2017 VAUGHN FRANKEL N Ot Z92.3 PERSONAL HISTORY OF IRRADIATION 12/23/2017 VAUGHN FRANKEL Ot C21.1 MALIGNANT NEOPLASM OF ANAL CANAL 12/23/2017 VAUGHN FRANKEL Ot E66.01 MORBID (SEVERE) OBESITY DUE TO EXCESS CA 12/23/2017 VAUGHN FRANKEL Ot K76.0 FATTY (CHANGE OF) LIVER, NOT ELSEWHERE C 12/23/2017 VAUGHN FRANKEL Ot R74.0 NONSPEC ELEV OF LEVELS OF TRANSAMNS LA 12/23/2017 VAUGHN FRANKEL Ot Z68.42 BODY MASS INDEX (BMI) 45.0-49.9, ADULT 12/23/2017 VAUGHN FRANKEL Ot Z92.21 PERSONAL HISTORY OF ANTINEOPLASTIC CHEMO 12/23/2017 VAUGHN FRANKEL Ot Z92.3 PERSONAL HISTORY OF IRRADIATION 03/08/2018 YOLANDA VASQUEZ DO Ot Z01.818 ENCOUNTER FOR OTHER PREPROCEDURAL EXAMIN 03/08/2018 VAUGHN FRANKEL Ot C21.1 MALIGNANT NEOPLASM OF ANAL CANAL 03/08/2018 VAUGHN FRANKEL Ot E66.01 MORBID (SEVERE) OBESITY DUE TO EXCESS CA 03/08/2018 VAUGHN FRANKEL Ot K76.0 FATTY (CHANGE OF) LIVER, NOT ELSEWHERE C 03/08/2018 VAUGHN FRANKEL Ot R74.0 NONSPEC ELEV OF LEVELS OF TRANSAMNS LA 03/08/2018 VAUGHN FRANKEL Ot Z68.42 BODY MASS INDEX (BMI) 45.0-49.9, ADULT 03/08/2018 VAUGHN FRANKEL Ot Z92.21 PERSONAL HISTORY OF ANTINEOPLASTIC CHEMO 03/08/2018 VAUGHN FRANKEL Ot Z92.3 PERSONAL HISTORY OF IRRADIATION 03/08/2018 YOLANDA VASQUEZ DO Ot Z01.818 ENCOUNTER FOR OTHER PREPROCEDURAL EXAMIN 03/08/2018 VAUGHN FRANKEL Ot C21.1 MALIGNANT NEOPLASM OF ANAL CANAL 03/08/2018 VAUGHN FRANKEL Ot E66.01 MORBID (SEVERE) OBESITY DUE TO EXCESS CA 03/08/2018 VAUGHN FRANKEL Ot K76.0 FATTY (CHANGE OF) LIVER, NOT ELSEWHERE C 03/08/2018 VAUGHN FRANKEL Ot R74.0 NONSPEC ELEV OF LEVELS OF TRANSAMNS LA 03/08/2018 VAUGHN FRANKEL Ot Z68.42 BODY MASS INDEX (BMI) 45.0-49.9, ADULT 03/08/2018 VAUGHN FRANKEL Ot Z92.21 PERSONAL HISTORY OF ANTINEOPLASTIC CHEMO 03/08/2018 VAUGHN FRANKEL Ot Z92.3 PERSONAL HISTORY OF IRRADIATION 03/08/2018 YOLANDA VASQUEZ DO Ot Z01.818 ENCOUNTER FOR OTHER PREPROCEDURAL EXAMIN 03/08/2018 YOLANDA VASQUEZ DO Ot Z01.818 ENCOUNTER FOR OTHER PREPROCEDURAL EXAMIN Procedures There is no data. Results Test Result Range Serum or plasma [...] Status Pt. Type Provider Facility Loc./Unit Complaint [id number] 03/08/2018 15:40:00 03/08/2018 15:51:00 DIS Outpatient YOLANDA VASQUEZ DO [facility] PREOP SIGMOIDOSCOPY [id number] 12/22/2017 00:10:00 12/22/2017 23:59:59 CLS Preadmit VAUGHN FRANKEL [facility] ONC [id number] 09/22/2017 15:00:00 12/21/2017 00:01:00 DIS Outpatient VAUGHN FRANKEL [facility] ONC [id number] 08/16/2017 10:15:00 08/16/2017 12:08:00 DIS Outpatient YOLANDA VASQUEZ DO [facility] ENDO BLOOD IN STOOLS, HX ANAL CA [id number] 08/15/2017 08:30:00 08/15/2017 09:04:00 DIS Outpatient YOLANDA VASQUEZ DO [facility] PREOP FLEXIBLE SIGMOIDOSCOPY [id number] 03/24/2017 12:51:00 2017 00:01:00 DIS Outpatient VAUGHN FRANKEL [facility] ONC [id number] 02/15/2017 06:50:00 02/15/2017 09:35:00 DIS Outpatient YOLANDA VASQUEZ DO [facility] ENDO BLEEDING PER RECTUM/ HX ANAL CA [id number] 02/08/2017 05:36:00 02/08/2017 11:40:00 DIS Outpatient YOLANDA VASQUEZ DO [facility] PREOP BLEEDING PER RECTUM/HX ANAL CA [id number] 11/25/2016 12:54:00 01/15/2017 00:01:00 DIS Outpatient VAUGHN FRANKEL [facility] ONC [id number] 08/23/2016 13:51:00 08/23/2016 23:59:59 CLS Outpatient NICKY FAIRCHILD DO [facility] LAB MALE HYPOGONADISM [id number] 08/23/2016 13:09:00 08/23/2016 00:01:00 DIS Outpatient VAUGHN FRANKEL [facility] ONC [id number] 08/17/2016 13:04:00 08/17/2016 23:59:59 CLS Outpatient LAINE DIAZ WATER MAIN INSPECTOR [facility] RAD ANAL CA [id number] 02/23/2016 12:57:00 05/23/2016 00:01:00 DIS Outpatient VAUGHN FRANKEL [facility] ONC [id number] 03/03/2016 09:33:00 03/03/2016 23:59:59 CLS Outpatient NYANDER NICKY S [facility] LAB MALE HYPOTESTOSTERONE,FATIGUE [id number] 11/24/2015 14:41:00 11/24/2015 23:59:59 CLS Outpatient LAINE DIAZ WATER MAIN INSPECTOR [facility] ONC [id number] 09/04/2015 08:52:00 09/04/2015 12:00:00 DIS Outpatient YOLANDA VASQUEZ DO [facility] HISTORY OF CANCER [id number] 09/03/2015 05:38:00 09/03/2015 13:17:00 DIS Outpatient YOLANDA VASQUEZ DO [facility] PREOP [id number] 08/29/2015 13:24:00 08/29/2015 16:15:00 DIS Outpatient YOLANDA VASQUEZ DO [facility] HX ANAL CA [id number] 07/23/2015 14:54:00 08/24/2015 00:01:00 DIS Outpatient VAUGHN FRANKEL [facility] ONC [id number] 08/20/2015 12:19:00 08/20/2015 23:59:59 CLS Outpatient LAINE DIAZ WATER MAIN INSPECTOR [facility] RAD [id number] 08/18/2015 13:44:00 08/18/2015 23:59:59 CLS Outpatient LAINE DIAZ WATER MAIN INSPECTOR [facility] ONC [id number] 07/25/2015 13:47:00 07/25/2015 23:59:59 CLS Outpatient LAINE DIAZ WATER MAIN INSPECTOR [facility] RAD [id number] 07/23/2015 16:30:00 07/23/2015 23:59:59 CLS Outpatient LAINE DIAZ S WATER MAIN INSPECTOR [facility] ONC [id number] 03/04/2015 14:57:00 04/28/2015 00:01:00 DIS Outpatient VAUGHN FRANKEL [facility] ONC [id number] 03/11/2015 08:49:00 03/11/2015 23:59:59 CLS Outpatient DIAZIVYAH S WATER MAIN INSPECTOR [facility] RAD [id number] 03/04/2015 14:55:00 03/04/2015 23:59:59 CLS Outpatient DIAZ, HILAH S WATER MAIN INSPECTOR [facility] ONC [id number] 02/04/2015 09:48:00 02/04/2015 23:59:59 CLS Outpatient DIAZIVYAH S WATER MAIN INSPECTOR [facility] RAD [id number] 12/18/2014 11:27:00 01/15/2015 00:01:00 DIS Outpatient VAUGHN FRANKEL [facility] ONC [id number] 12/31/2014 13:08:00 12/31/2014 23:59:59 CLS Outpatient DIAZLAINE Millan S WATER MAIN INSPECTOR [facility] ONC [id number] 10/23/2014 11:01:00 10/23/2014 23:59:59 CLS Outpatient LAINE DIAZ S WATER MAIN INSPECTOR [facility] ONC [id number] 10/08/2014 11:46:00 10/08/2014 14:45:00 DIS Outpatient YOLANDA VASQUEZ DO [facility] SDC [id number] 10/03/2014 05:46:00 10/03/2014 23:59:59 CLS Outpatient YOLANDA VASQUEZ DO [facility] PREOP [id number] 09/18/2014 10:57:00 09/18/2014 23:59:59 CLS Outpatient DIAZLAINE Millan S WATER MAIN INSPECTOR [facility] ONC [id number] 08/26/2014 08:59:00 09/12/2014 00:01:00 DIS Outpatient VAUGHN FRANKEL [facility] ONC [id number] 09/11/2014 09:50:00 09/11/2014 23:59:59 CLS Outpatient LAINE DIAZ WATER MAIN INSPECTOR [facility] RAD [id number] 08/26/2014 08:58:00 08/26/2014 23:59:59 CLS Outpatient LAINE DIAZ WATER MAIN INSPECTOR [facility] ONC [id number] 05/31/2014 09:31:00 05/31/2014 13:10:00 DIS Outpatient PEDRO KHAN YOLANDA Sylvester [facility] SDC [id number] 05/29/2014 11:41:00 05/29/2014 23:59:59 CLS Outpatient PEDRO KHAN YOLANDA D [facility] PREOP [id number] 05/16/2014 10:33:00 05/16/2014 23:59:59 CLS Outpatient J CARLOSYADIRA KHANNICKY S [facility] RAD [id number] 05/13/2014 14:04:00 05/13/2014 16:50:00 DIS Emergency KAYDEN NUNES MINI SHIFTER [facility] ER [id number] 02/20/2013 10:43:00 02/20/2013 12:31:00 DIS Emergency KAYDEN NUNES MINI SHIFTER [facility] ER [id number] 01/17/2013 15:17:00 01/17/2013 17:15:00 DIS Emergency VERONICA SHEPHERD, DAVID Medrano [facility] ER [id number] 10/03/2012 20:49:00 10/04/2012 06:40:00 DIS Outpatient LASHELL SHEPHERD, CURRY Sánchez [facility] SLEEP [id number] 09/14/2012 19:46:00 09/15/2012 06:45:00 DIS Outpatient LI RICH MD [facility] SLEEP [id number] 08/05/2012 15:50:00 08/05/2012 19:05:00 DIS Emergency GIESL CHA MD [facility] ER [id number] 03/14/2018 11:15:00 PEN Preadmit VASQUEZ DO, YOLANDA D [facility] ENDO BRIGHT RED BLOOD PER RECTUM [id number] 07/26/2014 09:12:00 Document Registration [id number] 07/25/2014 14:22:00 Document Registration [id number] 06/18/2014 13:41:00 Document Registration [id number] 06/13/2014 11:34:00 Document Registration [id number] 06/07/2014 13:12:00 Document Registration [id number] 11/02/2011 05:35:00 Document Registration [id number] 10/28/2011 08:12:00 Document Registration [id number] 02/28/2011 19:07:00 Document Registration [id number] 07/28/2010 16:00:00 Document Registration [id number] 05/09/2009 13:30:00 Document Registration [id number] 01/28/2015 15:06:49 ACT Document Registration [id number] 05/19/2017 17:00:00 05/19/2017 23:59:59 CLS Outpatient ALEXI TOBIAS VICKIEHarry [facility] 02/201712/08/2017 14:37:09 12/08/2017 23:59:59 CLS Outpatient Nicky Fairchild
[2018-03-14 12:15] VITALS: BP 140/91
[2018-03-14] MEDS ORDERED: LACTATED RINGERS 1,000 ML IV ONE (12:27)
[2018-03-14] MEDS ORDERED: LACTATED RINGERS 1,000 ML IV PRN (12:30)
[2018-03-14] MEDS ORDERED: MIDAZOLAM 2 MG/2 ML (VERSED) VIAL ONE (12:31)
[2018-03-14] MEDS ORDERED: PROPOFOL INJECTION 50 ML IV ONE (12:31)
--- NOTE | 2018-03-14 13:10 | Progress Note-Pre Operative ---
Pre-Operative Progress Note H&P Reviewed The H&P was reviewed, patient examined and no changes noted. Date Seen by Provider: Mar 14, 2018 Time Seen by Provider: 13:09 Date H&P Reviewed: Mar 14, 2018 Time H&P Reviewed: 13:09 Pre-Operative Diagnosis: history of anal cancer, bright red blood per rectum YOLANDA VASQUEZ DO Mar 14, 2018 13:10
[2018-03-14] MEDS ORDERED: ESMOLOL 100 MG/10 ML (BREVIBLOC) VIAL ONE (13:13)
--- NOTE | 2018-03-14 13:24 | Progress Note-Post Operative ---
Post-Operative Progess Note Surgeon (s)/[employer]vert[employer] Installer (s) Surgeon YOLANDA VASQUEZ DO [employer] Installer: na Pre-Operative Diagnosis history of anal cancer, bright red blood per rectum Post-Operative Diagnosis normal flex sig Procedure & Operative Findings Date of Procedure 03/14/18 Procedure Performed/Findings flex sig Anesthesia Type per steam and power superintendent Estimated Blood Loss Estimated blood loss (mL): na Specimens/Packing Specimens Removed na YOLANDA VASQUEZ DO Mar 14, 2018 13:24
--- NOTE | 2018-03-14 13:25 | Discharge Inst-Simple/Standard ---
Discharge Inst-Standard Patient Instructions/Follow Up Plan of Care/Instructions/FU: follow up in 6 months, if any issues before then be seen at that time. Activity as Tolerated: Yes Discharge Diet: Regular Diet (high fiber) YOLANDA VASQUEZ DO Mar 14, 2018 13:25
[2018-03-14 13:45] VITALS: BP 140/77
--- NOTE | 2018-03-14 13:55 | Anesthesia-General Post-Op ---
MAC Patient Condition Mental Status/LOC: Same as Preop Cardiovascular: Satisfactory Nausea/Vomiting: Absent Respiratory: Satisfactory Pain: Controlled Complications: Absent Post Op Complications Complications None Follow Up Care/Instructions Patient Instructions None needed. Anesthesiology Discharge Order Discharge Order Patient is doing well, no complaints, stable vital signs, no apparent adverse anesthesia problems. No complications reported per nursing. MAHNAZ SORIA CRNA Mar 14, 2018 13:55
[2018-03-14 14:10] VITALS: BP 137/79
[2018-03-14 14:12] VITALS: BP 137/79
--- NOTE | 2018-03-14 22:46 | OPERATIVE REPORT ---
DATE OF SERVICE: 03/14/2018 PREOPERATIVE DIAGNOSIS: History of anal cancer and bright red blood per rectum. POSTOPERATIVE DIAGNOSIS: Normal flexible sigmoidoscopy. PROCEDURE: Flexible sigmoidoscopy. SURGEON: Yolanda Holden DO ANESTHESIA: Per EMERY WHEEL MOLDER. ESTIMATED BLOOD LOSS: None. COMPLICATIONS: None. INDICATIONS: The patient is a 42-year-old male with history of anal cancer. He recently had some bright red blood per rectum. He was recommended flexible sigmoidoscopy for further evaluation. He understands risks and benefits of procedure and wished to proceed with procedure. Consent was signed in the chart. DESCRIPTION OF PROCEDURE: The patient was taken to the endoscopy suite, placed in left lower recumbent position. Timeout was performed. Digital rectal exam was performed. There were no palpable polyps, masses or ulcerations. Scope was inserted into the rectum and advanced all the way through the rectum and sigmoid. Scope was then slowly retracted back. There were no polyps, mass or ulcerations within the sigmoid colon. Once in the rectum, scope was also retroflexed noting no other pathology. Scope was returned to its normal position and slowly withdrawn until completely removed. RECOMMENDATIONS: The patient will follow up in six months for a regular visit. If he has any issues before, then he should be seen at that time. Job ID: [id number] DocumentID: [id number] Dictated Date: 03/14/2018 13:28:14 Director Industrial Relations Date: 03/14/2018 22:46:15 Dictated By: YOLANDA HOLDEN DO
== END 2018-03-14 14:16 | disposition home or self-care (01) ==
LOC: ENDO 12:05
PROVIDERS: ATTEND Surgery
DX: K62.5 Hemorrhage of anus and rectum (principal); Z85.048 Personal history of other malignant neoplasm of rectum, rectosigmoid junction, and anus; I10 Essential (primary) hypertension; G47.33 Obstructive sleep apnea (adult) (pediatric); K21.9 Gastro-esophageal reflux disease without esophagitis; E66.01 Morbid (severe) obesity due to excess calories; Z68.42 Body mass index [BMI] 45.0-49.9, adult; Z79.899 Other long term (current) drug therapy

== ENCOUNTER 2018-03-23 15:02 | Outpatient (RCR) | payer BC ==
[2018-03-23 15:20] LABS: BASOPHILS % (AUTO) 0 % (0-10); EOSINOPHILS # (AUTO) 0.1 10^3/uL (0.0-0.3); EOSINOPHILS % (AUTO) 1 % (0-10); HEMATOCRIT 48 % (40-54); HEMOGLOBIN 15.7 G/DL (13.3-17.7); LYMPHOCYTES # (AUTO) 2.2 X 10^3 (1.0-4.0); LYMPHOCYTES % (AUTO) 23 % (12-44); MEAN CORPUSCULAR HEMOGLOBIN 29 PG (25-34); MEAN CORPUSCULAR HGB CONC 33 G/DL (32-36); MEAN CORPUSCULAR VOLUME 88 FL (80-99); MEAN PLATELET VOLUME 10.3 FL (7.4-10.4); MONOCYTES # (AUTO) 0.7 X 10^3 (0.0-1.0); MONOCYTES % (AUTO) 7 % (0-12); NEUTROPHILS # (AUTO) 6.4 X 10^3 (1.8-7.8); NEUTROPHILS % (AUTO) 68 % (42-75); PLATELET COUNT 222 10^3/uL (130-400); RED CELL DISTRIBUTION WIDTH 14.3 % (10.0-14.5); WHITE BLOOD COUNT 9.5 10^3/uL (4.3-11.0)
[2018-03-23 15:40] LABS: ALANINE AMINOTRANSFERASE 55 U/L (0-55); ALBUMIN 4.5 GM/DL (3.2-4.5); ALKALINE PHOSPHATASE 58 U/L (40-136); BILIRUBIN,TOTAL 0.4 MG/DL (0.1-1.0); BUN/CREATININE RATIO 17; CALCIUM 10.1 MG/DL (8.5-10.1); CARBON DIOXIDE 27 MMOL/L (21-32); CHLORIDE 104 MMOL/L (98-107); GFR ESTIMATED > 60; GLUCOSE 105 MG/DL (70-105); POTASSIUM 4.1 MMOL/L (3.6-5.0); SODIUM 141 MMOL/L (135-145); TOTAL PROTEIN 7.4 GM/DL (6.4-8.2)
== END 2018-06-21 | disposition home or self-care (01) ==
LOC: ONC 15:02
PROVIDERS: ATTEND Internal Medicine Hematology & Oncology
DX: C21.1 Malignant neoplasm of anal canal (principal); K76.0 Fatty (change of) liver, not elsewhere classified; R74.0 Nonspecific elevation of levels of transaminase and lactic acid dehydrogenase [LDH]; E66.01 Morbid (severe) obesity due to excess calories; Z68.42 Body mass index [BMI] 45.0-49.9, adult; Z92.21 Personal history of antineoplastic chemotherapy; Z92.3 Personal history of irradiation
CPT/HCPCS: 36415; 80053; 85025; 99213

== ENCOUNTER 2020-06-18 12:49 | Outpatient (RCR) | payer BC, OTHER ==
[2020-06-18 13:13] LABS: BASOPHILS # (AUTO) 0.1 10^3/uL (0.0-0.1); BASOPHILS % (AUTO) 1 % (0-10); EOSINOPHILS # (AUTO) 0.2 10^3/uL (0.0-0.3); EOSINOPHILS % (AUTO) 2 % (0-10); HEMATOCRIT 46 % (40-54); HEMOGLOBIN 14.9 g/dL (13.3-17.7); LYMPHOCYTES # (AUTO) 1.7 10^3/uL (1.0-4.0); LYMPHOCYTES % (AUTO) 20 % (12-44); MEAN CORPUSCULAR HEMOGLOBIN 29 pg (25-34); MEAN CORPUSCULAR HGB CONC 32 g/dL (32-36); MEAN CORPUSCULAR VOLUME 90 fL (80-99); MEAN PLATELET VOLUME 10.7 fL (9.0-12.2); MONOCYTES # (AUTO) 0.5 10^3/uL (0.0-1.0); MONOCYTES % (AUTO) 5 % (0-12); NEUTROPHILS # (AUTO) 6.1 10^3/uL (1.8-7.8); NEUTROPHILS % (AUTO) 72 % (42-75); PLATELET COUNT 190 10^3/uL (130-400); WHITE BLOOD COUNT 8.5 10^3/uL (4.3-11.0)
[2020-06-18 13:33] LABS: ALANINE AMINOTRANSFERASE 35 U/L (0-55); ALBUMIN 4.1 GM/DL (3.2-4.5); ALKALINE PHOSPHATASE 43 U/L (40-136); BILIRUBIN,TOTAL 0.4 MG/DL (0.1-1.0); BUN/CREATININE RATIO 16; CALCIUM 8.8 MG/DL (8.5-10.1); CARBON DIOXIDE 23 MMOL/L (21-32); CHLORIDE 106 MMOL/L (98-107); GFR ESTIMATED > 60; GLUCOSE 144 MG/DL (70-105); POTASSIUM 4.2 MMOL/L (3.6-5.0); SODIUM 138 MMOL/L (135-145); TOTAL PROTEIN 6.7 GM/DL (6.4-8.2)
== END 2020-09-16 | disposition home or self-care (01) ==
LOC: ONC 12:49
PROVIDERS: ATTEND Internal Medicine Hematology & Oncology
DX: C21.0 Malignant neoplasm of anus, unspecified (principal); E66.01 Morbid (severe) obesity due to excess calories; E29.1 Testicular hypofunction; N52.9 Male erectile dysfunction, unspecified; Z92.21 Personal history of antineoplastic chemotherapy; Z92.3 Personal history of irradiation
CPT/HCPCS: 80053; 85025; G0463; 99213

== ENCOUNTER → 2020-11-11 | Outpatient (CLI) | payer OTHER | END | disposition home or self-care (01) | LOC: PREOP 05:41 | PROVIDERS: ATTEND Surgery | DX: Z01.818 Encounter for other preprocedural examination (principal) ==

== ENCOUNTER 2020-11-13 13:03 | Outpatient (CLI) | payer OTHER ==
[~2020-11-13] VITALS: Ht 167.6 cm; Wt 127.7 kg
[2020-11-13 13:00] VITALS: BP 164/102
[2020-11-13] MEDS ORDERED: EPINEPHrine INJECTION 1 MG/ML AMP IM PRN (13:15)
[2020-11-13] MEDS ORDERED: diphenhydrAMINE 50 MG/ML INJ (BENADRYL) IV PRN (13:15)
[2020-11-13] MEDS ORDERED: CASIRIVIMAB/IMDEVIMAB 1,200 MG in NS (IVPB) 250 ML IV ONE (13:15)
[2020-11-13 14:42] VITALS: BP 142/93
== END 2020-11-13 15:28 ==
LOC: INFUSION 13:03
PROVIDERS: ATTEND Nurse Practitioner Family
DX: Z23 Encounter for immunization (principal); U07.1 COVID-19

== ENCOUNTER 2021-05-18 05:33 | Outpatient (CLI) | payer BC ==
[~2021-05-18] VITALS: Ht 165.1 cm; Wt 114.5 kg
[2021-05-18] MEDS ORDERED: DAPA10TA PO (09:13)
[2021-05-18] MEDS ORDERED: LISI20TA26 PO (09:13)
[2021-05-18] MEDS ORDERED: ATOR40TA70 PO (09:13)
[2021-05-18] MEDS ORDERED: METF-397 PO (09:13)
== END 2021-05-18 10:44 | disposition home or self-care (01) ==
LOC: PREOP 05:33
PROVIDERS: ATTEND Surgery
DX: Z01.818 Encounter for other preprocedural examination (principal)

== ENCOUNTER 2021-05-26 09:48 | Day surgery (SDC) | payer BC, OTHER ==
[~2021-05-26] VITALS: Ht 165 cm; Wt 114.0 kg
[~2021-05-26 09:48] MED LIST changes: +ATOR40TA70 PO; +DAPA10TA PO; +LISI20TA26 PO; +METF-397 PO
[2021-05-26] MEDS ORDERED: LACTATED RINGERS 1,000 ML IV ONE (09:52)
[2021-05-26] MEDS ORDERED: LACTATED RINGERS 1,000 ML IV STA (09:57)
[2021-05-26 10:05] VITALS: BP 126/92
--- NOTE | 2021-05-26 10:39 | Progress Note-Pre Operative ---
Pre-Operative Progress Note H&P Reviewed The H&P was reviewed, patient examined and no changes noted. Date Seen by Provider: May 26, 2021 Time Seen by Provider: 10:39 Date H&P Reviewed: May 26, 2021 Time H&P Reviewed: 10:39 Pre-Operative Diagnosis: hx anal cancer YOLANDA VASQUEZ DO May 26, 2021 10:39
[2021-05-26] MEDS ORDERED: PROPOFOL INJECTION 50 ML IV ONE (10:55)
--- NOTE | 2021-05-26 11:30 | Anesthesia-General Post-Op ---
MAC Patient Condition Mental Status/LOC: Same as Preop Cardiovascular: Satisfactory Nausea/Vomiting: Absent Respiratory: Satisfactory Pain: Controlled Complications: Absent Post Op Complications Complications None Follow Up Care/Instructions Patient Instructions None needed. Anesthesiology Discharge Order Discharge Order Patient is doing well, no complaints, stable vital signs, no apparent adverse anesthesia problems. No complications reported per nursing. ROLANDA VASQUEZ CRNA May 26, 2021 11:30
[2021-05-26 11:33] VITALS: BP 111/68
--- NOTE | 2021-05-26 11:33 | Discharge Inst-Simple/Standard ---
Discharge Inst-Standard Patient Instructions/Follow Up Plan of Care/Instructions/FU: 2 weeks Adina Activity as Tolerated: Yes Discharge Diet: Regular Diet YOLANDA VASQUEZ DO May 26, 2021 11:33
--- NOTE | 2021-05-26 11:35 | Progress Note-Post Operative ---
Post-Operative Progess Note Surgeon (s)/Title Vehicle Service Attendant (s) Surgeon YOLANDA VASQUEZ DO Title Vehicle Service Attendant: na Pre-Operative Diagnosis hx anal cancer Post-Operative Diagnosis colon polyp x 3 Procedure & Operative Findings Date of Procedure 05/26/21 Procedure Performed/Findings colonoscopy c hot bx polypectomy x 3 Anesthesia Type per research director Estimated Blood Loss Estimated blood loss (mL): none Specimens/Packing Specimens Removed colon polyps YOLANDA VASQUEZ DO May 26, 2021 11:35
[2021-05-26 11:38] VITALS: BP 116/77
[2021-05-26 11:40] VITALS: BP 121/80
[2021-05-26 12:10] VITALS: BP 129/79
--- NOTE | 2021-05-26 16:03 | OPERATIVE REPORT ---
DATE OF SERVICE: 05/26/2021 PREOPERATIVE DIAGNOSIS: History of anal cancer. POSTOPERATIVE DIAGNOSIS: Colon polyps. PROCEDURE: Colonoscopy with hot biopsy polypectomy x3. SURGEON: Yolanda Holden DO ANESTHESIA: Per DIALYSIS SOCIAL WORKER. ESTIMATED BLOOD LOSS: None. COMPLICATIONS: None. INDICATIONS: The patient is a 45-year-old male with history of anal cancer. He understands risks and benefits of procedure, wishes to proceed. Consent was signed in the chart. DESCRIPTION OF PROCEDURE: The patient was taken to the endoscopy suite, placed in left lateral recumbent position. Timeout was performed. Digital rectal exam was performed. No palpable polyps, masses or ulcerations. Scope was inserted in the rectum and advanced all the way to cecum with minimal difficulty. Prep was adequate. Scope was slowly retracted back. No polyps, masses or ulcerations in the cecum. In the ascending colon, 2 polyps were present, which hot biopsy polypectomy was performed. Scope was then continuously retracted back transverse colon, another polyp was present, which hot biopsy polypectomy was performed. Scope was then continuously retracted back. No polyps, masses or ulcerations within the remainder of the transverse, descending and sigmoid colon. In the rectum, scope was retroflexed noting no other pathology. Scope was returned to its normal position, slowly withdrawn until completely removed. The patient tolerated the procedure well without any complications. He was taken to recovery room in stable condition. RECOMMENDATIONS: The patient will need repeat colonoscopy in 3 years due to polyps and history of anal cancer. Any issues before that be seen at that time. The patient will follow up on pathology. CC: Yodit Pike -- requested, unable to deliver. Job ID: [id number] DocumentID: [id number] Dictated Date: 05/26/2021 11:36:51 Tank House Operator Date: 05/26/2021 16:02:40 Dictated By: YOLANDA HOLDEN DO
== END 2021-05-26 12:15 | disposition home or self-care (01) ==
LOC: ENDO 09:48
PROVIDERS: ATTEND Surgery
DX: Z12.11 Encounter for screening for malignant neoplasm of colon (principal); D12.3 Benign neoplasm of transverse colon; D12.2 Benign neoplasm of ascending colon; I10 Essential (primary) hypertension; G47.33 Obstructive sleep apnea (adult) (pediatric); E11.9 Type 2 diabetes mellitus without complications; E66.01 Morbid (severe) obesity due to excess calories; K21.9 Gastro-esophageal reflux disease without esophagitis; E78.00 Pure hypercholesterolemia, unspecified; F17.290 Nicotine dependence, other tobacco product, uncomplicated; Z85.048 Personal history of other malignant neoplasm of rectum, rectosigmoid junction, and anus; Z79.899 Other long term (current) drug therapy; Z79.84 Long term (current) use of oral hypoglycemic drugs; Z68.41 Body mass index [BMI] 40.0-44.9, adult; Z79.2 Long term (current) use of antibiotics
CPT/HCPCS: 88305

== ENCOUNTER 2021-06-04 04:43 | Observation (INO) | payer BC ==
[~2021-06-04] VITALS: Ht 165.1 cm; Wt 115.2 kg
[2021-06-04 05:24] LABS: BASOPHILS % (AUTO) 1 % (0-10); EOSINOPHILS # (AUTO) 0.1 10^3/uL (0.0-0.3); EOSINOPHILS % (AUTO) 2 % (0-10); HEMATOCRIT 46 % (40-54); HEMOGLOBIN 15.1 g/dL (13.3-17.7); LYMPHOCYTES # (AUTO) 2.2 10^3/uL (1.0-4.0); LYMPHOCYTES % (AUTO) 27 % (12-44); MEAN CORPUSCULAR HEMOGLOBIN 30 pg (25-34); MEAN CORPUSCULAR HGB CONC 33 g/dL (32-36); MEAN CORPUSCULAR VOLUME 90 fL (80-99); MONOCYTES # (AUTO) 0.7 10^3/uL (0.0-1.0); MONOCYTES % (AUTO) 8 % (0-12); NEUTROPHILS % (AUTO) 62 % (42-75); PLATELET COUNT 203 10^3/uL (130-400); WHITE BLOOD COUNT 8.1 10^3/uL (4.3-11.0)
[2021-06-04 05:37] LABS: INR 0.9 (0.8-1.4); PROTHROMBIN TIME PATIENT 12.9 SEC (12.2-14.7)
[2021-06-04 05:41] LABS: ALBUMIN 4.3 GM/DL (3.2-4.5)
[2021-06-04 05:43] LABS: CALCIUM 9.3 MG/DL (8.5-10.1)
[2021-06-04 05:46] LABS: BILIRUBIN,TOTAL 0.5 MG/DL (0.1-1.0)
[2021-06-04 05:47] LABS: CREATININE SERUM 0.69 MG/DL (0.60-1.30)
--- NOTE | 2021-06-04 06:21 | ED GI ---
General Chief Complaint: Rect Problems Stated Complaint: BLOOD IN BOWEL MOVEMENT Nursing Triage Note: PATIENT STATES THAT HE WOKE UP TONIGHT AND WAS BLEEDING FROM HIS RECTUM. HE DENIES PAIN. HE DID HAVE A COLONOSCOPY ONE WEEK AGO AND THREE POLYPS WERE REMOVED. HE REPORTS NORMAL BOWEL MOVEMENT YESTERDAY-06/03/21 Source of Information: Patient Exam Limitations: No Limitations History of Present Illness Date Seen by Provider: Jun 04, 2021 Time Seen by Provider: 04:54 Initial Comments This 25-year-old gentleman with history of anal rectal cancer presents to the e [facility]en[facility] room with concerns about rectal bleeding. He woke this morning to find a significant amount of rectal bleeding. He went to the bathroom and had more blood when wiping. He subsequently had about 1/2 cup of dark red blood in his stool in the ER. He has a history of anal rectal cancer treated with chemotherapy and radiation. He underwent colonoscopy by Dr. Holden about a week ago during which 2 polyps were removed. It was otherwise uncomplicated colonoscopy based on report. Prior to the colonoscopy he had some lower abdominal/pelvic pain that was thought to be related to urinary tract infection and/or diverticulitis. Pain did resolve with antibiotic therapy and was not present at the time of colonoscopy. He is denying pain at this time. He is hemodynamically stable. Allergies and Home Medications Allergies Coded Allergies: latex (Verified Allergy, Mild, RASH, 03/08/18) Uncoded Allergies: TAPE (Allergy, Mild, 03/08/18) Patient Home Medication List Home Medication List Reviewed: Yes Atorvastatin Calcium (Atorvastatin Calcium) 40 Mg Tablet, 40 MG PO, (Reported) Entered as Reported by: RONNIE SCHNEIDER on 05/18/21912 Dapagliflozin Propanediol (Farxiga) 10 Mg Tablet, 10 MG PO DAILY, (Reported) Entered as Reported by: RONNIE SCHNEIDER on 05/18/21912 Lisinopril (Lisinopril) 20 Mg Tablet, 20 MG PO DAILY, (Reported) Entered as Reported by: RONNIE SCHNEIDER on 05/18/21912 Metformin HCl (Metformin HCl) 500 Mg Tablet, 500 MG PO BID, (Reported) Entered as Reported by: RONNIE SCHNEIDER on 05/18/21912 Review of Systems Review of Systems Constitutional: no symptoms reported EENTM: No Symptoms Reported Respiratory: No Symptoms Reported Cardiovascular: No Symptoms Reported Gastrointestinal: See HPI Genitourinary: No Symptoms Reported Musculoskeletal: no symptoms reported Skin: no symptoms reported Psychiatric/Neurological: No Symptoms Reported Endocrine: No Symptoms Reported Hematologic/Lymphatic: No Symptoms Reported Past Ngredsd-Yenjqa-Zmmpqw Hx Patient Social History Tobacco Use?: No Smoking Status: Never a Smoker Smokeless Tobacco Frequency: Never a User Use of E-Cig and/or Vaping dev: No Use of E-Cig and/or Vaping Pradeep: Never a User Substance use?: No Alcohol Use?: Yes Alcohol Frequency: Rarely Pt feels they are or have been: No Immunizations Up To Date Tetanus Booster (TDap): Less than 5yrs Influenza Vaccine Up-to-Date: No; Not Current First/Initial COVID19 Vaccinat: 2020 COVID19 Vaccine Mandrel Maker: embraase Seasonal Allergies Seasonal Allergies: Yes Past Medical History Surgeries: Yes (EPIDIDECTOMY MERY, R CARPAL TUNNEL, LOW BACK SURGERY, colonoscopy/polypectom) Abdominal (Colonoscopy with polypectomy), Vasectomy Respiratory: Yes Sleep Apnea Currently Using CPAP: Yes (doesn't use all the time) Cardiac: Yes High Cholesterol, Hypertension Neurological: No Reproductive Disorders: No Sexually Transmitted Disease: No HIV/AIDS: No Gastrointestinal: Yes (history anal CA, rectal bleeding) Gastroesophageal Reflux Musculoskeletal: Yes Arthritis Endocrine: Yes Diabetes, Non-Insulin dep Loss of Vision: Bilateral Hearing Impairment: Denies Cancer: Yes Rectal Did You Recieve Any Treatments: Yes What Type of Treatment Did You: Chemotherapy, Radiation, Surgical Intervention Psychosocial: No Integumentary: No Blood Disorders: No Adverse Reaction/Blood Tranf: No Physical Exam Vital Signs Vital Signs - First Documented 06/04/21 04:54 Temp 36.9 Pulse 81 Resp 20 B/P (MAP) 144/112 (123) Pulse Ox 97 O2 Delivery Room Air Capillary Refill : Height/Weight/BMI Height: 5'5.00" Weight: 290lbs. 0.0oz. 131.861943qa; 42.00 BMI Method:Stated General Appearance: WD/WN, no apparent distress HEENT: PERRL/EOMI, normal ENT inspection Neck: normal inspection Respiratory: lungs clear, normal breath sounds, no respiratory distress Cardiovascular: regular rate, rhythm, no edema, no murmur Gastrointestinal: normal bowel sounds, non tender, soft Rectal: other (Left at the anus with no evidence of active bleeding. Small shallow external hemorrhoids. No fissure identified.) Extremities: normal inspection Neurologic/Psychiatric: optical advisor II-XII nml as tested, no motor/sensory deficits, alert, normal mood/affect, oriented x 3 Skin: normal color, warm/dry Progress/Results/Core Measures Results/Orders Lab Results Laboratory Tests Test 06/04/21 05:16 Range/Units White Blood Count 8.1 4.3-11.0 10^3/uL Red Blood Count 5.12 4.30-5.52 10^6/uL Hemoglobin 15.1 13.3-17.7 g/dL Hematocrit 46 40-54 % Mean Corpuscular Volume 90 80-99 fL Mean Corpuscular Hemoglobin 30 25-34 pg Mean Corpuscular Hemoglobin Concent 33 32-36 g/dL Red Cell Distribution Width 13.7 10.0-14.5 % Platelet Count 203 130-400 10^3/uL Mean Platelet Volume 11.0 9.0-12.2 fL Immature Granulocyte % (Auto) 0 % Neutrophils (%) (Auto) 62 42-75 % Lymphocytes (%) (Auto) 27 12-44 % Monocytes (%) (Auto) 8 0-12 % Eosinophils (%) (Auto) 2 0-10 % Basophils (%) (Auto) 1 0-10 % Neutrophils # (Auto) 5.0 1.8-7.8 10^3/uL Lymphocytes # (Auto) 2.2 1.0-4.0 10^3/uL Monocytes # (Auto) 0.7 0.0-1.0 10^3/uL Eosinophils # (Auto) 0.1 0.0-0.3 10^3/uL Basophils # (Auto) 0.0 0.0-0.1 10^3/uL Immature Granulocyte # (Auto) 0.0 0.0-0.1 10^3/uL Prothrombin Time 12.9 12.2-14.7 SEC INR Comment 0.9 0.8-1.4 Activated Partial Thromboplast Time 28 24-35 SEC Sodium Level 140 135-145 MMOL/L Potassium Level 4.0 3.6-5.0 MMOL/L Chloride Level 107 98-107 MMOL/L Carbon Dioxide Level 20 L 21-32 MMOL/L Anion Gap 13 5-14 MMOL/L Blood Urea Nitrogen 18 7-18 MG/DL Creatinine 0.69 0.60-1.30 MG/DL Estimat Glomerular Filtration Rate 117 BUN/Creatinine Ratio 26 Glucose Level 104 70-105 MG/DL Calcium Level 9.3 8.5-10.1 MG/DL Corrected Calcium 9.1 8.5-10.1 MG/DL Total Bilirubin 0.5 0.1-1.0 MG/DL Aspartate Amino Transf (AST/SGOT) 20 5-34 U/L Alanine Aminotransferase (ALT/SGPT) 29 0-55 U/L Alkaline Phosphatase 39 L 40-136 U/L Total Protein 7.0 6.4-8.2 GM/DL Albumin 4.3 3.2-4.5 GM/DL My Orders Orders - DAVID MARTIN MD Cbc With Automated Diff (06/04/21 05:10) Comprehensive Metabolic Panel (06/04/21 05:10) Protime With Inr (06/04/21 05:10) Partial Thromboplastin Time (06/04/21 05:10) Vital Signs/I&O 06/04/21 04:54 Temp 36.9 Pulse 81 Resp 20 B/P (MAP) 144/112 (123) Pulse Ox 97 O2 Delivery Room Air Blood Pressure Mean: 123 Progress Progress Note : Progress Note Labs and vitals were unremarkable. Patient had a bowel movement in the ER of about 1/2 cup of dark red blood. Situation was discussed with Dr. Holden. He would like him admitted for observation with bowel prep today and repeat colonoscopy in the morning. I discussed the situation with the patient and he is agreeable to the admission. Departure Communication (Admissions) Time/Spoke to Admitting Phy: 06:00 Dr. Holden Impression Primary Impression: Blood in stool Additional Impression: History of rectal or anal cancer Disposition: ADMITTED INPATIENT Condition: Stable Admissions Decision to Admit Reason: Admit from ER (General) Decision to Admit/Date: Jun 04, 2021 Time/Decision to Admit Time: 06:00 Departure-Patient Inst. Referrals: NO,LOCAL PHYSICIAN (PCP/Family) Primary Care Physician DAVID MARTIN MD Jun 04, 2021 06:21
[2021-06-04 07:35] VITALS: BP 134/95
[2021-06-04] MEDS: LACTATED RINGERS 1,000 ML IV SCH ×2 (07:40→18:21)
[2021-06-04] MEDS ORDERED: fentaNYL INJ 100 MCG/2 ML AMP IVP PRN (08:00)
[2021-06-04] MEDS ORDERED: ONDANSETRON 4 MG/2 ML (SDV) Z0FRAN IVP PRN (08:00)
[2021-06-04] MEDS ORDERED: GOLYTELY POWDER 4000 ML BTL PO ONE (08:00)
[2021-06-04] MEDS ORDERED: OMEP20TA33 PO (09:18)
[2021-06-04] MEDS ORDERED: ACET-2267 PO (09:18)
[2021-06-04] MEDS ORDERED: DULO20CA19 PO (09:18)
[2021-06-04] MEDS ORDERED: MULT-1102 PO (09:18)
[2021-06-04] MEDS ORDERED: SAW/1TAB2 PO (09:18)
[2021-06-04] MEDS ORDERED: DAPA10TA PO (09:18)
[2021-06-04] MEDS ORDERED: METF-478 PO (09:18)
--- NOTE | 2021-06-04 10:03 | History & Physical-Surgical ---
JAGDISH PITT 06/04/21 1003: History of Present Illness History of Present Illness Reason for visit/HPI CC: Rectal bleeding HPI: 45 yo male with hx of anal rectal cancer and chronic back pain presented to the ER with rectal bleeding. Pt noticed the bleeding when he woke at 4am. states he lost about 8 ounces at home. ER reports another 1/2 cup of dark red blood lost while admitting. Pt had a colonoscopy 1 week ago, where 3 polyps were removed. Pt is in no pain currently, but reports a feeling of pressure "like he has to go." He had another bloody bm this morning. Pt reports having abdominal pain earlier in the month, and was prescribed antibiotics for suspected UTI/ diverticulitis. The abdominal pain resolved 1 or two days prior to his colonoscopy last week. Pt also reports bilat lower back pain that began a week ago. The pain is (8/10) intermittent and sharp when going from sitting to standing. Date of Admission Jun 04, 2021 at 06:10 Date Seen by a Provider: Jun 04, 2021 Time Seen by a Provider: 07:00 I consulted on this patient on 06/04/21 10:01 Attending Physician Yolanda Vasquez DO Admitting Physician No,Local Physician Consult Allergies and Home Medications Allergies Coded Allergies: latex (Verified Allergy, Mild, RASH, 03/08/18) Uncoded Allergies: TAPE (Allergy, Mild, 03/08/18) Patient Home Medication List Acetaminophen (Tylenol Extra Strength) 500 Mg Tablet, 1,000 MG PO Q8H PRN for PAIN-MILD (1-4), (Reported) Entered as Reported by: KAREN FLETCHER on 06/04/21917 Last Action: Reviewed Atorvastatin Calcium (Atorvastatin Calcium) 40 Mg Tablet, 40 MG PO HS, (Reported) Entered as Reported by: RONNIE SCHNEIDER on 05/18/21912 Last Action: Reviewed Dapagliflozin Propanediol (Farxiga) 10 Mg Tablet, 10 MG PO HS, (Reported) Entered as Reported by: KAREN FLETCHER on 06/04/21917 Last Action: Reviewed Duloxetine HCl (Duloxetine HCl) 20 Mg Capsule.dr, 20 MG PO DAILY, (Reported) Entered as Reported by: KAREN FLETCHER on 06/04/21917 Last Action: Reviewed Lisinopril (Lisinopril) 20 Mg Tablet, 20 MG PO HS, (Reported) Entered as Reported by: RONNIE SCHNEIDER on 05/18/21912 Last Action: Reviewed Metformin HCl (Metformin HCl ER) 500 Mg Tab.er.24, 500 MG PO BID, (Reported) Entered as Reported by: KAREN FLETCHER on 06/04/21917 Last Action: Reviewed Multivit-Min/Folic/Vit K/Lycop (Men's Multivitamin Tablet) 1 Each Tablet, 1 EACH PO DAILY, (Reported) Entered as Reported by: KAREN FLETCHER on 06/04/21917 Last Action: Reviewed Omeprazole Magnesium (Prilosec Otc) 20 Mg Tablet.dr, 20 MG PO DAILY PRN for HEARTBURN, (Reported) Entered as Reported by: KAREN FLETCHER on 06/04/21917 Last Action: Reviewed Saw/Vit E/Sod Jenniffer/Lyc/Beta/Pyg (Prostate Health Caplet) 1 Each Tablet, 1 EACH PO DAILY, (Reported) Entered as Reported by: KAREN FLETCHER on 06/04/21917 Last Action: Reviewed Discontinued Medications Dapagliflozin Propanediol (Farxiga) 10 Mg Tablet, 10 MG PO DAILY, (Reported) Discontinued Reason: Duplicate Order Entered as Reported by: RONNIE SCHNEIDER on 05/18/21912 Last Action: Discontinued Metformin HCl (Metformin HCl) 500 Mg Tablet, 500 MG PO BID, (Reported) Discontinued Reason: Duplicate Order Entered as Reported by: RONNIE SCHNEIDER on 05/18/21912 Last Action: Discontinued Past Ziinlku-Fbdmhi-Wzgojb Hx Patient Social History Tobacco Use?: No Smoking Status: Never a Smoker Smokeless Tobacco Frequency: Never a User Use of E-Cig and/or Vaping dev: No Use of E-Cig and/or Vaping Pradeep: Never a User Substance use?: No Alcohol Use?: Yes Alcohol Frequency: Rarely Pt feels they are or have been: No Immunizations Up To Date Date of Influenza Vaccine: Jan 23, 2018 First/Initial COVID19 Vaccinat: 2020 Date of Pneumonia Vaccine: May 31, 2011 Seasonal Allergies Seasonal Allergies: Yes Current Status Advance Directives: No Communicates: Verbally Primary Language: Kuwaiti Preferred Spoken Language: Kuwaiti Is interpretation needed?: No Past Medical History Surgeries: Abdominal, Vasectomy Sleep Apnea Currently Using CPAP: Yes (doesn't use all the time) High Cholesterol, Hypertension Sexually Transmitted Disease: No HIV/AIDS: No Gastroesophageal Reflux Arthritis Diabetes, Non-Insulin dep Loss of Vision: Bilateral Hearing Impairment: Denies Rectal Did You Recieve Any Treatments: Yes What Type of Treatment Did You: Chemotherapy, Radiation, Surgical Intervention Blood Disorders: No Adverse Reaction/Blood Tranf: No Review of Systems Constitutional: No chills, No fever EENTM: No hearing loss, No blurred vision Respiratory: No cough, No dyspnea on exertion Cardiovascular: No chest pain, No palpitations Gastrointestinal: No abdominal pain; melena Genitourinary: No dysuria; frequency Musculoskeletal: back pain; No joint pain Skin: No lesions, No rash Psychiatric/Neurological: Depressed; Denies Headache (had SMITH 2-3 days ago) Physical Exam Vital Signs Vital Signs - First Documented 06/04/21 04:54 Temp 36.9 Pulse 81 Resp 20 B/P (MAP) 144/112 (123) Pulse Ox 97 O2 Delivery Room Air Capillary Refill : Height, Weight, BMI Height: 5'5.00" Weight: 290lbs. 0.0oz. 131.009131cn; 42.26 BMI Method:Stated General Appearance: No Apparent Distress, Obese Eyes: Bilateral Eye Normal Inspection HEENT: PERRL/EOMI Neck: Normal Inspection, Supple Respiratory: Lungs Clear, Normal Breath Sounds, No Respiratory Distress Cardiovascular: Regular Rate, Rhythm, Normal Peripheral Pulses Gastrointestinal: Normal Bowel Sounds, No Organomegaly, Non Tender, Distended Extremity: Normal Inspection, No Pedal Edema Neurologic/Psychiatric: Alert, Oriented x3, Normal Mood/Affect Skin: Normal Color, Warm/Dry Data Review Labs Laboratory Tests 06/04/21 05:16: White Blood Count 8.1, Red Blood Count 5.12, Hemoglobin 15.1, Hematocrit 46, Mean Corpuscular Volume 90, Mean Corpuscular Hemoglobin 30, Mean Corpuscular Hemoglobin Concent 33, Red Cell Distribution Width 13.7, Platelet Count 203, Mean Platelet Volume 11.0, Immature Granulocyte % (Auto) 0, Neutrophils (%) (Auto) 62, Lymphocytes (%) (Auto) 27, Monocytes (%) (Auto) 8, Eosinophils (%) (Auto) 2, Basophils (%) (Auto) 1, Neutrophils # (Auto) 5.0, Lymphocytes # (Auto) 2.2, Monocytes # (Auto) 0.7, Eosinophils # (Auto) 0.1, Basophils # (Auto) 0.0, Immature Granulocyte # (Auto) 0.0, Prothrombin Time 12.9, INR Comment 0.9, Activated Partial Thromboplast Time 28, Sodium Level 140, Potassium Level 4.0, Chloride Level 107, Carbon Dioxide Level 20L, Anion Gap 13, Blood Urea Nitrogen 18, Creatinine 0.69, Estimat Glomerular Filtration Rate 117, BUN/Creatinine Ratio 26, Glucose Level 104, Calcium Level 9.3, Corrected Calcium 9.1, Total Bilirubin 0.5, Aspartate Amino Transf (AST/SGOT) 20, Alanine Aminotransferase (ALT/SGPT) 29, Alkaline Phosphatase 39L, Total Protein 7.0, Albumin 4.3 Assessment/Plan Assessment/Plan Assessment/Plan Rectal Bleeding HTN T2DM Hypercholesterolemia Chronic Back pain Depression Hx anal rectal cancer Admitted for Observation Bowel Prep today Repeat colonoscopy tomorrow Monitor labs and vitals YOLANDA VASQUEZ DO 06/04/21 3925: History of Present Illness History of Present Illness Reason for visit/HPI Chief complaint rectal bleeding Patient is a 45-year-old male known to me. He has history of squamous cell carcinoma of the anus. Patient with colonoscopy last week which had polyps removed. Patient states that this morning he woke up about 4 AM with blood in his underwear. Patient states that he again had some darker bowel movement w hile in the emergency department. Patient states that he has a little bit of discomfort or pressure in his abdomen. This is located pretty much around the middle portion of his abdomen. Nothing seems to make it better or worse. Patient states that he had a feels like when he had a urinary tract infection a month ago. He will also have some sharp pains when he tries to get up from sitting. It pretty much resolves after getting up though. Patient has no nausea vomiting fever sweats chills shortness of breath or chest pain at this time. Allergies and Home Medications Allergies Coded Allergies: latex (Verified Allergy, Mild, RASH, 03/08/18) Uncoded Allergies: TAPE (Allergy, Mild, 03/08/18) Patient Home Medication List Home Medication List Reviewed: Yes Acetaminophen (Tylenol Extra Strength) 500 Mg Tablet, 1,000 MG PO Q8H PRN for PAIN-MILD (1-4), (Reported) Entered as Reported by: KAREN FLETCHER on 06/04/21917 Last Action: Reviewed Atorvastatin Calcium (Atorvastatin Calcium) 40 Mg Tablet, 40 MG PO HS, (Reported) Entered as Reported by: RONNIE SCHNEIDER on 05/18/21912 Last Action: Reviewed Dapagliflozin Propanediol (Farxiga) 10 Mg Tablet, 10 MG PO HS, (Reported) Entered as Reported by: KAREN FLETCHER on 06/04/21917 Last Action: Reviewed Duloxetine HCl (Duloxetine HCl) 20 Mg Capsule.dr, 20 MG PO DAILY, (Reported) Entered as Reported by: KAREN FLETCHER on 06/04/21917 Last Action: Reviewed Lisinopril (Lisinopril) 20 Mg Tablet, 20 MG PO HS, (Reported) Entered as Reported by: RONNIE SCHNEIDER on 05/18/21912 Last Action: Reviewed Metformin HCl (Metformin HCl ER) 500 Mg Tab.er.24, 500 MG PO BID, (Reported) Entered as Reported by: KAREN FLETCHER on 06/04/21917 Last Action: Reviewed Multivit-Min/Folic/Vit K/Lycop (Men's Multivitamin Tablet) 1 Each Tablet, 1 EACH PO DAILY, (Reported) Entered as Reported by: KAREN FLETCHER on 06/04/21917 Last Action: Reviewed Omeprazole Magnesium (Prilosec Otc) 20 Mg Tablet.dr, 20 MG PO DAILY PRN for HEARTBURN, (Reported) Entered as Reported by: KAREN FLETCHER on 06/04/21917 Last Action: Reviewed Saw/Vit E/Sod Jenniffer/Lyc/Beta/Pyg (Prostate Health Caplet) 1 Each Tablet, 1 EACH PO DAILY, (Reported) Entered as Reported by: KAREN FLETCHER on 06/04/21917 Last Action: Reviewed Discontinued Medications Dapagliflozin Propanediol (Farxiga) 10 Mg Tablet, 10 MG PO DAILY, (Reported) Discontinued Reason: Duplicate Order Entered as Reported by: RONNIE SCHNEIDER on 05/18/21912 Last Action: Discontinued Metformin HCl (Metformin HCl) 500 Mg Tablet, 500 MG PO BID, (Reported) Discontinued Reason: Duplicate Order Entered as Reported by: RONNIE SCHNEIDER on 05/18/21912 Last Action: Discontinued Past Fpudvux-Vubjoq-Whmsif Hx Family Medical History Reviewed Nursing Family Hx Review of Systems Constitutional: No chills, No fever EENTM: No hearing loss, No blurred vision Respiratory: No cough, No dyspnea on exertion Cardiovascular: No chest pain, No palpitations Gastrointestinal: abdominal pain, melena; No nausea, No vomiting Genitourinary: No dysuria; frequency Musculoskeletal: back pain; No joint pain Skin: No lesions, No rash Psychiatric/Neurological: Denies Anxiety; Depressed, Headache All Other Systems Reviewed Negative Unless Noted: Yes (Negative excepted noted.) Physical Exam General Appearance: No Apparent Distress, Obese HEENT: PERRL/EOMI, Normal ENT Inspection Neck: Normal Inspection Respiratory: Chest Non Tender, No Accessory Muscle Use, No Respiratory Distress Cardiovascular: Regular Rate, Rhythm, No JVD Gastrointestinal: Non Tender, Soft; No Distended; Other (Obese) Rectal: Deferred Back: No CVA Tenderness, No Vertebral Tenderness Extremity: Normal Inspection, Non Tender Neurologic/Psychiatric: Alert, Oriented x3, Normal Mood/Affect Skin: Normal Color, Warm/Dry Lymphatic: No Adenopathy Assessment/Plan Assessment/Plan Admission Diagonsis Rectal Bleeding HTN T2DM Hypercholesterolemia Chronic Back pain Depression Hx anal rectal cancer Admission Status: Observation Assessment/Plan Rectal Bleeding HTN T2DM Hypercholesterolemia Chronic Back pain Depression Hx anal rectal cancer Admitted for Observation Bowel Prep today EGD/ colonoscopy tomorrow to further evaluate Monitor labs and vitals Supervisory-Addendum Brief Verification & Attestation Participated in pt care: history, MDM, physical Personally performed: exam, history, MDM, supervision of care Care discussed with: Medical Student Procedures: n/a Results interpretation: Verified all documentation Verification and Attestation of Medical Student E/M Service A medical student performed and documented this service in my presence. I reviewed and verified all information documented by the medical student and made modifications to such information, when appropriate. I personally performed the physical exam and medical decision making. Yolanda Vasquez, Jun 04, 2021,23:15 JAGDISH PITT Jun 04, 2021 10:03 YOLANDA VASQUEZ DO Jun 04, 2021 23:15
[2021-06-04 11:14] VITALS: BP 122/84
[2021-06-04 15:30] VITALS: BP 149/62
[2021-06-04 20:09] VITALS: BP 105/67
[2021-06-04] MEDS ORDERED: ACETAMINOPHEN 325 MG TABLET ONE (20:12)
[2021-06-04] MEDS: ACETAMINOPHEN 325 MG TABLET PO PRN (20:14)
[2021-06-04] MEDS ORDERED: PANTOPRAZOLE 20 MG TABLET (PROTONIX) PO PRN (23:30)
[2021-06-05] VITALS (7 sets, daily range): BP systolic 90–145; BP diastolic 53–88
[2021-06-05] MEDS: LACTATED RINGERS 1,000 ML IV SCH ×2 (04:40→15:09)
[2021-06-05 06:28] LABS: HEMATOCRIT 35 % (40-54); HEMOGLOBIN 11.1 g/dL (13.3-17.7); MEAN CORPUSCULAR HEMOGLOBIN 29 pg (25-34); MEAN CORPUSCULAR HGB CONC 32 g/dL (32-36); MEAN CORPUSCULAR VOLUME 91 fL (80-99); MEAN PLATELET VOLUME 11.8 fL (9.0-12.2); PLATELET COUNT 148 10^3/uL (130-400); WHITE BLOOD COUNT 5.9 10^3/uL (4.3-11.0)
[2021-06-05 06:40] LABS: POTASSIUM 3.9 MMOL/L (3.6-5.0)
[2021-06-05 06:41] LABS: CALCIUM 8.2 MG/DL (8.5-10.1)
[2021-06-05 06:46] LABS: CREATININE SERUM 0.59 MG/DL (0.60-1.30)
--- NOTE | 2021-06-05 06:53 | Progress Note - Surgery ---
JAGDISH PITT 06/05/21 0653: Subjective Date Seen by a Provider: Jun 05, 2021 Time Seen by a Provider: 06:35 Subjective/Events-last exam Pt tired this morning. Reports continued bright red blood in stools. 2 bm's overnight, mostly diarrhea. Denies N/V, but does have 3/10 abdominal pain today. Pt has been NPO since midnight, only having broth after completing his bowel prep. Pt denies CP, SOB, fever and chills at this time, but does have a SMITH (3/10). Review of Systems General: No Chills; Fatigue HEENT: Head Aches (06/25); No Eye Pain Pulmonary: No Dyspnea, No Cough Cardiovascular: No: Chest Pain, Palpitations Gastrointestinal: Abdominal Pain (06/25); No: Nausea, Vomiting Genitourinary: Frequency; No Incontinence Musculoskeletal: back pain; No: foot pain Neurological: No: Weakness, Change in speech Focused Exam Respiratory: Lungs Clear, Normal Breath Sounds, No Respiratory Distress Cardiovascular: Regular Rate, Rhythm, No Murmur Peripheral Pulses: 2+ Radial Pulses (R), 2+ Radial Pulses (L) Skin: normal color, warm/dry Objective Exam Vital Signs Date Time Temp Pulse Resp B/P (MAP) Pulse Ox O2 Delivery O2 Flow Rate FiO2 06/05/21 04:40 36.8 70 18 102/65 (77) 97 Room Air 06/05/21 00:36 36.1 70 18 105/70 (82) 95 Room Air 06/04/21 21:50 95 Room Air 06/04/21 20:15 Room Air 06/04/21 20:09 37.1 71 18 105/67 (80) 95 Room Air 06/04/21 15:30 36.6 68 18 149/62 (91) 94 Room Air 06/04/21 11:14 36.4 77 18 122/84 (97) 94 Room Air 06/04/21 10:41 Room Air 06/04/21 07:35 36.3 82 18 134/95 (108) 96 Room Air 06/04/21 07:16 36.7 20 122/98 95 Room Air I & O 06/05/21 07:00 Intake Total 6760 ml Balance 6760 ml Capillary Refill : General Appearance: No Apparent Distress, Obese HEENT: PERRL/EOMI Neck: Normal Inspection Respiratory: Lungs Clear, Normal Breath Sounds, No Respiratory Distress Cardiovascular: Regular Rate, Rhythm, No JVD, No Murmur Peripheral Pulses: 2+ Radial Pulses (R), 2+ Radial Pulses (L) Gastrointestinal: non tender, soft Extremity: Normal Inspection, No Pedal Edema Neurologic/Psychiatric: Oriented x3, Normal Mood/Affect Skin: Normal Color, Warm/Dry Results Lab Laboratory Tests 06/05/21 05:23: White Blood Count 5.9, Red Blood Count 3.78L, Hemoglobin 11.1#L, Hematocrit 35L, Mean Corpuscular Volume 91, Mean Corpuscular Hemoglobin 29, Mean Corpuscular Hemoglobin Concent 32, Red Cell Distribution Width 13.9, Platelet Count 148, M harris Platelet Volume 11.8, Sodium Level 138, Potassium Level 3.9, Chloride Level 108H, Carbon Dioxide Level 21, Anion Gap 9, Blood Urea Nitrogen 11, Creatinine 0.59L, Estimat Glomerular Filtration Rate 123, BUN/Creatinine Ratio 19, Glucose Level 95, Calcium Level 8.2L Assessment/Plan Assessment/Plan Assessment/Plan Rectal Bleeding HTN T2DM Hypercholesterolemia Chronic Back pain Depression Hx anal rectal cancer Anemia Admitted for Observation Bowel Prep completed EGD/ colonoscopy today to further evaluate Monitor labs and vitals YOLANDA HOLDEN DO 06/05/21 1111: Subjective Subjective/Events-last exam Patient did prep. Still with bloody bm. Tolerated prep. Minimal abdominal discomfort. NPO currently. Denies n/v fever sweats chills shortness of breath or chest pain. Objective Exam General Appearance: No Apparent Distress, Anxious HEENT: PERRL/EOMI, Normal ENT Inspection Neck: Normal Inspection, Non Tender Respiratory: Chest Non Tender, No Accessory Muscle Use, No Respiratory Distress Cardiovascular: Regular Rate, Rhythm, No JVD Gastrointestinal: non tender, soft Extremity: Normal Inspection Neurologic/Psychiatric: Alert, Oriented x3, Normal Mood/Affect Skin: Normal Color, Warm/Dry Lymphatic: No Adenopathy Assessment/Plan Assessment/Plan Assessment/Plan Rectal Bleeding HTN T2DM Hypercholesterolemia Chronic Back pain Depression Hx anal rectal cancer Anemia Bowel Prep completed EGD/ colonoscopy today to further evaluate Supervisory-Addendum Brief Verification & Attestation Participated in pt care: history, MDM, physical Personally performed: exam, history, MDM, supervision of care Care discussed with: Medical Student Procedures: n/a Results interpretation: Verified all documentation Verification and Attestation of Medical Student E/M Service A medical student performed and documented this service in my presence. I reviewed and verified all information documented by the medical student and made modifications to such information, when appropriate. I personally performed the physical exam and medical decision making. Yolanda Holden, Jun 05, 2021,11:11 JAGDISH PITT Jun 05, 2021 06:53 YOLANDA HOLDEN DO Jun 05, 2021 11:11
[2021-06-05] MEDS: DULoxetine 20 MG (CYMBALTA) CAP PO SCH (10:04)
[2021-06-05] MEDS ORDERED: LACTATED RINGERS 1,000 ML IV ONE (12:35)
[2021-06-05] MEDS ORDERED: MIDAZOLAM 2 MG/2 ML (VERSED) VIAL ONE (12:35)
[2021-06-05] MEDS ORDERED: PROPOFOL INJECTION 50 ML IV ONE (12:35)
[2021-06-05] MEDS ORDERED: LACTATED RINGERS 1,000 ML IV PRN (12:45)
--- NOTE | 2021-06-05 13:49 | Anesthesia-General Post-Op ---
MAC Patient Condition Mental Status/LOC: Same as Preop Cardiovascular: Satisfactory Nausea/Vomiting: Absent Respiratory: Satisfactory Pain: Controlled Complications: Absent Post Op Complications Complications None Follow Up Care/Instructions Patient Instructions None needed. Anesthesiology Discharge Order Discharge Order Patient is doing well, no complaints, stable vital signs, no apparent adverse anesthesia problems. No complications reported per nursing. TIFFANIE DAVALOS CRNA Jun 05, 2021 13:49
--- NOTE | 2021-06-05 14:07 | Progress Note-Post Operative ---
Post-Operative Progess Note Surgeon (s)/Household Appliance Mechanic (s) Surgeon YOLANDA VASQUEZ DO Household Appliance Mechanic: na Pre-Operative Diagnosis gi bleed Post-Operative Diagnosis gastritis, anal fissure, bleeding polyp Procedure & Operative Findings Date of Procedure 06/05/21 Procedure Performed/Findings egd c biopsies, colonoscopy with fulguration of polyp Anesthesia Type per rail manager Estimated Blood Loss Estimated blood loss (mL): scant Specimens/Packing Specimens Removed antrum, body YOLANDA VASQUEZ DO Jun 05, 2021 14:07
[2021-06-05] MEDS: ACETAMINOPHEN 325 MG TABLET PO PRN (16:39)
[2021-06-05] MEDS ORDERED: lisINopril 20 MG (PRINIVIL) TABLET PO SCH (21:00)
--- NOTE | 2021-06-05 21:19 | OPERATIVE REPORT ---
DATE OF SERVICE: 06/05/2021 PREOPERATIVE DIAGNOSIS: Gastrointestinal bleed. POSTOPERATIVE DIAGNOSES: Gastritis, anal fissure, bleeding polyp, ascending colon. PROCEDURE: EGD with biopsies, colonoscopy with fulguration. SURGEON: Yolanda Holden DO ANESTHESIA: Per IRRIGATIONIST. ESTIMATED BLOOD LOSS: Scant. COMPLICATIONS: None. INDICATIONS: The patient is a 45-year-old male who had a colonoscopy approximately 1 week ago. He presented back with GI bleed. He was admitted. He underwent bowel prep. The patient was discussed risks and benefits of having EGD and colonoscopy. He understands and wishes to proceed. Consent was signed in the chart. DESCRIPTION OF PROCEDURE: The patient was taken to endoscopy suite, placed in left recumbent position. Timeout was performed. Scope was inserted in mouth, down the esophagus, stomach and into the duodenum without difficulty. There were no polyps, masses or ulcerations within the duodenum. Scope was slowly retracted back, gastritis present with some ulcerations throughout the stomach. No active bleeding. Biopsy of the antrum was obtained. Biopsy of the body was obtained. Scope was retroflexed noting no other pathology. Scope was returned to its normal position, slowly withdrawn to distal esophagus, which had no polyps, masses or ulcerations. Scope was slowly retracted back until completely removed. Digital rectal exam was performed noting a posterior anal fissure, a significant blood clot within the rectal vault. No palpable polyps, masses present. Scope was inserted in the rectum, noting a blood clot. Lots of irrigation and suction was began and the scope was advanced all the way to cecum with minimal difficulty. The whole colon had significant amount of old blood present. Once irrigation and suction was then continued to be used and irrigated as the scope was slowly withdrawn. No polyps, masses or ulcerations within the cecum. In the ascending colon, area of small polyp was present, which at the base appeared to have a very slight ooze, forceps were used to grasp the polyp and the area was fulgurated achieving hemostasis. The scope was then continuously retracted back irrigating and suctioning, no active bleeding seen within the remainder of the ascending, transverse, descending and sigmoid colon. Once in the rectum, scope was retroflexed after continued irrigation and suction noting no other pathology. Scope was returned to its normal position, slowly withdrawn until completely removed. The patient tolerated procedure well without any complications, taken to recovery room in stable condition. RECOMMENDATIONS: The patient will be started on 40 mg of Protonix daily. We will keep him on clear liquid diet. We will continue to follow hemoglobin. Once hemoglobin stable, we would continue to advance diet. If continues to have bleeding, may need further prep and repeating scope. Job ID: [id number] DocumentID: [id number] Dictated Date: 06/05/2021 14:52:45 Emergency Medical Service Manager Date: 06/05/2021 21:18:39 Dictated By: YOLANDA HOLDEN DO
[2021-06-06 04:00] VITALS: BP 99/54
[2021-06-06 08:00] VITALS: BP 127/84
[2021-06-06 08:12] LABS: HEMATOCRIT 33 % (40-54); HEMOGLOBIN 10.5 g/dL (13.3-17.7); MEAN CORPUSCULAR HEMOGLOBIN 29 pg (25-34); MEAN CORPUSCULAR HGB CONC 32 g/dL (32-36); MEAN CORPUSCULAR VOLUME 91 fL (80-99); MEAN PLATELET VOLUME 10.9 fL (9.0-12.2); PLATELET COUNT 183 10^3/uL (130-400)
[2021-06-06 08:23] LABS: POTASSIUM 3.9 MMOL/L (3.6-5.0)
[2021-06-06 08:24] LABS: CALCIUM 8.8 MG/DL (8.5-10.1)
[2021-06-06 08:28] LABS: CREATININE SERUM 0.71 MG/DL (0.60-1.30)
[2021-06-06] MEDS ORDERED: PANTOPRAZOLE 40 MG (PROTONIX) TAB PO SCH (09:00)
[2021-06-06] MEDS: DULoxetine 20 MG (CYMBALTA) CAP PO SCH (09:01)
[2021-06-06 12:00] VITALS: BP 137/96
--- NOTE | 2021-06-06 12:17 | Progress Note ---
Subjective Date Seen by a Provider: Jun 06, 2021 Time Seen by a Provider: 11:00 Subjective/Events-last exam Patient seen with Dr. Martin. Patient reports doing well. Denies any nausea, vomiting, reflux, abdominal pain. Reports BM this morning with no blood. Tolerating clear liquid diet. Patient reports that he is ready to go home. Objective Exam Vital Signs Date Time Temp Pulse Resp B/P (MAP) Pulse Ox O2 Delivery O2 Flow Rate FiO2 06/06/21 08:00 36.4 73 18 127/84 (98) 94 Room Air 06/06/21 08:00 Room Air 06/06/21 04:00 37.1 77 20 99/54 (69) 95 Room Air 06/05/21 23:43 36.9 84 18 118/77 (91) 95 Room Air 06/05/21 20:00 Room Air 06/05/21 19:54 36.8 92 18 145/81 (102) 93 Room Air 06/05/21 16:16 36.2 84 18 139/88 (105) 99 Room Air 06/05/21 13:50 70 15 99 OxyMask I & O 06/06/21 07:00 Intake Total 3820 ml Balance 3820 ml Capillary Refill : General Appearance: No Apparent Distress, WD/WN Neck: Normal Inspection, Supple Respiratory: No Accessory Muscle Use, No Respiratory Distress Cardiovascular: Regular Rate, Rhythm, No Edema Gastrointestinal: normal bowel sounds, non tender, soft Extremity: Normal Inspection, Normal Range of Motion Neurologic/Psychiatric: Alert, Oriented x3 Skin: Normal Color, Warm/Dry Results Lab Laboratory Tests 06/06/21 07:49: White Blood Count 8.0, Red Blood Count 3.63L, Hemoglobin 10.5L, Hematocrit 33L, Mean Corpuscular Volume 91, Mean Corpuscular Hemoglobin 29, Mean Corpuscular Hem oglobin Concent 32, Red Cell Distribution Width 13.8, Platelet Count 183, Mean Platelet Volume 10.9, Sodium Level 140, Potassium Level 3.9, Chloride Level 107, Carbon Dioxide Level 24, Anion Gap 9, Blood Urea Nitrogen 6L, Creatinine 0.71, Estimat Glomerular Filtration Rate 116, BUN/Creatinine Ratio 8, Glucose Level 90, Calcium Level 8.8 06/06/21 11:06: Glucometer 87 Microbiology 06/04/21 MRSA Screen - Final, Complete MRSA not isolated Assessment/Plan Assessment/Plan Assess & Plan/Chief Complaint A 45 year old male with Rectal Bleeding, HTN, T2DM, Hypercholesterolemia, Chronic Back pain, Depression, Hx anal rectal cancer, Anemia, COVID + VSS Hgb 10.5 EGD/Colonoscopy yesterday showed gastritis, anal fissure, and colon polyp which was most likely the source of bleeding Will advance diet and if tolerates, then patient may be DC'd home DA FAULKNER APRN Jun 06, 2021 12:17
--- NOTE | 2021-06-06 12:18 | Discharge Inst-Surgical ---
D/C Lap Instructions-KIDO Reconcile Patient Problems Problems Reviewed?: Yes Follow Up Appt in [address] Holden Activity as tolerated No driving for 24 hours No driving while on pain medications High Fiber Diet 25g or more per day Avoid Alcohol, Caffeine, Spicy Deputy and Acid foods. Drink 64 fluid oz or more of fluids per day. Symptoms to Report: Fever over 101 degree F, Nausea/Vomiting If any problems/questions: Contact your physician or go to Emergency Room DA FAULKNER APRN Jun 06, 2021 12:18
[2021-06-06 13:44] VITALS: BP 137/96
== END 2021-06-06 14:10 | disposition home or self-care (01) ==
LOC: EDUNIT# 04:43 → ER 04:47 → 4TH 06:10
PROVIDERS: ADMIT Surgery; ATTEND Surgery
DX: K29.70 Gastritis, unspecified, without bleeding (principal); K29.71 Gastritis, unspecified, with bleeding; K31.89 Other diseases of stomach and duodenum; K25.9 Gastric ulcer, unspecified as acute or chronic, without hemorrhage or perforation; K63.5 Polyp of colon; K60.2 Anal fissure, unspecified; K21.9 Gastro-esophageal reflux disease without esophagitis; I10 Essential (primary) hypertension; G47.33 Obstructive sleep apnea (adult) (pediatric); E78.5 Hyperlipidemia, unspecified; E11.9 Type 2 diabetes mellitus without complications; E66.9 Obesity, unspecified; E78.00 Pure hypercholesterolemia, unspecified; G47.30 Sleep apnea, unspecified; M19.90 Unspecified osteoarthritis, unspecified site; F32.A Depression, unspecified; Z68.41 Body mass index [BMI] 40.0-44.9, adult; Z99.89 Dependence on other enabling machines and devices; Z79.84 Long term (current) use of oral hypoglycemic drugs; Z79.899 Other long term (current) drug therapy; Z92.21 Personal history of antineoplastic chemotherapy; Z85.048 Personal history of other malignant neoplasm of rectum, rectosigmoid junction, and anus
CPT/HCPCS: 36415; 80048; 80053; 82947; 85025; 85027; 85610; 85730; 87081; 87636; 94760; 99284; G0378

== ENCOUNTER → 2021-06-16 | Outpatient (CLI) | payer BC, OTHER ==
[~2021-06-16] MED LIST changes: +ACET-2267 PO; +DULO20CA19 PO; +METF-478 PO; +MULT-1102 PO; +SAW/1TAB2 PO
[2021-06-16 16:02] LABS: BASOPHILS # (AUTO) 0.1 10^3/uL (0.0-0.1); BASOPHILS % (AUTO) 1 % (0-10); EOSINOPHILS # (AUTO) 0.1 10^3/uL (0.0-0.3); EOSINOPHILS % (AUTO) 2 % (0-10); HEMATOCRIT 36 % (40-54); HEMOGLOBIN 11.4 g/dL (13.3-17.7); LYMPHOCYTES # (AUTO) 2.3 10^3/uL (1.0-4.0); LYMPHOCYTES % (AUTO) 28 % (12-44); MEAN CORPUSCULAR HEMOGLOBIN 30 pg (25-34); MEAN CORPUSCULAR HGB CONC 32 g/dL (32-36); MEAN CORPUSCULAR VOLUME 93 fL (80-99); MEAN PLATELET VOLUME 10.5 fL (9.0-12.2); MONOCYTES # (AUTO) 0.6 10^3/uL (0.0-1.0); MONOCYTES % (AUTO) 7 % (0-12); NEUTROPHILS % (AUTO) 62 % (42-75); PLATELET COUNT 272 10^3/uL (130-400); WHITE BLOOD COUNT 8.1 10^3/uL (4.3-11.0)
== END ==
LOC: EDSTATUS 09-17 08:12 → ONC 15:05
PROVIDERS: ATTEND Internal Medicine Hematology & Oncology
DX: Z45.2 Encounter for adjustment and management of vascular access device (principal); C21.0 Malignant neoplasm of anus, unspecified
CPT/HCPCS: 82728; 83540; 83550; 85025; G0463; 36415; 99213